=== PATIENT | male | born 1945 | race Caucasian/White ===

== ENCOUNTER → 2016-12-15 | Outpatient (CLI) | payer OTHER, BC ==
[~2016-12-15] MED LIST: ACET1TAB84 PO; ALLO300T80 PO; AMLO-110 PO; ASPI81TA28 PO; CLB200 PO; CPR500 PO; CRD4 PO; FINA5TAB PO; FLUT0.15 NAE; FRRS300 PO; FURO-85 PO; GLUCTAB7 PO; METO50TA7 PO; OMEG10007 PO; OXYSR10 PO; PRAV40TA PO; PRLSR20 PO; RXC5 PO; VNTHFA/IN INH
--- NOTE | 2016-12-15 09:24 | DIAGNOSTIC IMAGING REPORT ---
CT OF THE LEFT SHOULDER CT DOSE: 1327.00 mGy.cm HISTORY: Pain arthritis TECHNIQUE: Multiaxial CT images of the left shoulder were performed and reformatted in the sagittal and coronal plane without the use of contrast. COMPARISON: None. FINDINGS: Findings of considerable degenerative change of the glenohumeral joint. There is complete loss of joint space. There is sclerosis and peripheral reactive osteophytic change of the glenoid. Similar findings are seen involving the humeral head. Small degenerative subchondral cysts are present. There is moderate degenerative change acromioclavicular joint. There are no abnormal soft tissue or tendinous calcifications. There is no evidence for fracture. IMPRESSION: Severe degenerative change left glenohumeral joint. Electronically signed by: Kennedy Mccoy M.D. 12/15/2016 9:22 AM Dictated Date/Time: 12/15/2016 9:16 AM
== END | disposition home or self-care (01) ==
LOC: C.CTS 08:51
PROVIDERS: ATTEND Orthopaedic Surgery
DX: M25.512 Pain in left shoulder (principal)

== ENCOUNTER 2017-01-26 08:56 | Inpatient (IN) | payer OTHER, BC ==
--- NOTE | 2017-01-08 12:31 | HISTORY & PHYSICAL EXAMINATION ---
DATE OF ADMISSION: 01/26/2017 PREOPERATIVE HISTORY AND PHYSICAL EXAMINATION SUBJECTIVE CHIEF COMPLAINT: Left shoulder pain. HISTORY OF PRESENT ILLNESS: The patient is a 71-year-old male who complains of right and left shoulder pain. He states that the pain is worse on the left hand side. His symptoms have been chronic and nontraumatic. He describes the pain as being aching, sharp and throbbing. He has had previous cortisone injections and physical therapy, nonsteroidal anti-inflammatories with no relief. He would like to proceed with the surgical procedure. PAST MEDICAL HISTORY: Significant for hypertension, aFib, BPH. PAST SURGICAL HISTORY: Ablation for aFib, spinal fusion at L3-L4, left knee arthroscopy and appendectomy. SOCIAL HISTORY: He denies alcohol use, denies smoking or tobacco use. He denies IV drug use. Lives in a [address] house. He is currently retired. FAMILY HISTORY: Father has a history of heart disease. ALLERGIES: No known drug allergies. MEDICATIONS: Amlodipine 5 mg, pravastatin 40 mg, finasteride 5 mg, metoprolol 100 mg, doxazosin 8 mg, furosemide 20 mg, allopurinol 300 mg, aspirin 81 mg, glucosamine chondroitin. REVIEW OF SYSTEMS: He denies headache, fevers, chills, double vision, blurry vision, sore throat, cough, chest pain, nausea, vomiting, diarrhea, chest pain, numbness, tingling, tired, urinary problems, thoughts of harming himself or harm others and depression. He is positive for joint pain and joint stiffness of the left shoulder. OBJECTIVE: GENERAL APPEARANCE: The patient is a 71-year-old male who is sitting in no acute distress. He is well dressed, well nourished. He is awake, alert and oriented x3. VITAL SIGNS: He is 5 feet 5-1/2 inches tall, 233 pounds, blood pressure is 126/76. HEENT: Normocephalic, atraumatic. Extraocular movements are intact. PERRLA. Mucosa was moist. No septal deviation. NECK: Supple with no lymphadenopathy, no JVD, no thyromegaly. HEART: Regular rate and rhythm. No murmurs or gallops. LUNGS: Clear to auscultation. No wheezing or rhonchi. ABDOMEN: Soft, nontender, nondistended. Normal bowel sounds, no hepatosplenomegaly. EXTREMITIES: Paying particular attention to his left shoulder, he is able to actively flex to 90 degrees, extend to degrees, externally rotate to 45 degrees. He has diffuse tenderness over the left shoulder joint. He has a positive Yip-Willard, positive Neer impingement sign, positive cross body test. NEUROLOGIC: Cranial nerves II-XII are intact. Pulses were compared bilaterally and were equal. IMAGING: X-rays of the left shoulder demonstrate bone on bone with significant osteophyte formation of the inferior humeral head with cystic change within the glenoid and eccentric posterior wear. IMPRESSION: Severe end-stage left shoulder osteoarthritis. PLAN: The patient is scheduled for a left total shoulder arthroplasty versus reverse total shoulder arthroplasty. Given the patient's physical exam findings, there is concern for chronic tear of the rotator cuff. Depending on surgical findings, I will determine whether the patient receive a left total shoulder arthroplasty versus reverse total shoulder arthroplasty. Risks and benefits were discussed for surgery that included but not limited to infection, DVT, pain, stiffness, need for revision surgery, damage to blood vessels, damage to nerves, PE, and anesthesia risks were all discussed and he wishes to proceed. All questions were answered to his satisfaction. He would like to go home with home health. Postop surgical visit will be on 02/05/2017. HAI
[2017-01-08 13:48] VITALS: BMI 38.0
--- NOTE | 2017-01-08 14:34 | PAT Medication Instructions ---
Service Date January 08, 2017. Current Home Medication List Acetaminophen (Tylenol Arthritis Ext Rel), 1,300 MG PO PRN Allopurinol (Zyloprim), 300 MG PO QPM Amlodipine (Norvasc), 5 MG PO QAM Aspirin (Aspirin Ec), 81 MG PO QAM Doxazosin Mesylate (Cardura *), 8 MG PO QPM Finasteride (Proscar), 5 MG PO QAM Fish Oil ([place]-3), 1 CAP PO QPM Fluticasone Propionate (Nasal) (Flonase Allergy Relief), 2 SPRAYS BRIGITTE BID Furosemide (Lasix), 20 MG PO QAM Bnxgazdfqlz-Wgexksuyabs-Wam C- (Glucosamine Chondroitin), 1 TAB PO QAM Metoprolol Succ (Toprol Xl) (Toprol-Xl), 50 MG PO QAM Pravastatin Sodium (Pravachol), 40 MG PO HS Medication Instructions For Your Scheduled Surgery - Hold the following medications 10 days prior to surgery: Wfugdrvfywj-Gpepozoubjd-Gly C- (Glucosamine Chondroitin), 1 TAB PO QAM Fish Oil ([place]-3), 1 CAP PO QPM - Hold the following medications the morning of surgery: Furosemide (Lasix), 20 MG PO QAM - Take the following medications the morning of surgery with a sip of water: Metoprolol Succ (Toprol Xl) (Toprol-Xl), 50 MG PO QAM Fluticasone Propionate (Nasal) (Flonase Allergy Relief), 2 SPRAYS BRIGITTE BID Finasteride (Proscar), 5 MG PO QAM Amlodipine (Norvasc), 5 MG PO QAM Aspirin (Aspirin Ec), 81 MG PO QAM Acetaminophen (Tylenol Arthritis Ext Rel), 1,300 MG PO PRN (if needed) - Take the following medications as scheduled the night before surgery: Pravastatin Sodium (Pravachol), 40 MG PO HS Fluticasone Propionate (Nasal) (Flonase Allergy Relief), 2 SPRAYS BRIGITTE BID Doxazosin Mesylate (Cardura *), 8 MG PO QPM Allopurinol (Zyloprim), 300 MG PO QPM Acetaminophen (Tylenol Arthritis Ext Rel), 1,300 MG PO PRN If you have any questions please call us at [phone] or [phone] ( [place]) or [phone]
[2017-01-08 15:14] LABS: BASO % 0.3 %; BASO ABS # 0.02 K/uL (0-0.2); COMPLETE YES; EOS % 3.1 %; HEMATOCRIT 47.1 % (42-52); IG% 0.3 %; LYMPH % 19.4 %; LYMPH ABS # 1.48 K/uL (1.2-3.4); MEAN CELL VOLUME 93.1 fL (80-100); MEAN CORPUSCULAR HGB CONC 34.4 g/dl (32-36); MEAN PLATELET VOLUME 10.3 fL (7.4-10.4); MONO % 9.2 %; NEUT % 67.7 %; PLATELET COUNT 203 K/uL (130-400); RED BLOOD COUNT 5.06 M/uL (4.7-6.1); WHITE BLOOD COUNT 7.62 K/uL (4.8-10.8)
[2017-01-08 15:23] LABS: URINE APPEARANCE CLEAR (CLEAR); URINE BILIRUBIN NEG (NEG); URINE COLOR YELLOW; URINE NITRITE NEG (NEG); URINE PH 7.5 (4.5-7.5); URINE SPECIFIC GRAVITY 1.024 (1.000-1.030); UROBILINOGEN NEG (NEG)
[2017-01-08 15:24] LABS: INR 1.1 (0.9-1.1); PARTIAL THROMBOPLASTIN RATIO 1.2; PROTHROMBIN TIME (PATIENT) 11.6 SECONDS (9.0-12.0)
[2017-01-08 15:29] LABS: BUN/CREATININE RATIO 20.1 (10-20); CALCIUM 9.1 mg/dl (8.5-10.1); CREATININE 1.4 mg/dl (0.60-1.40); POTASSIUM 4.7 mmol/L (3.5-5.1)
[2017-01-08 15:31] LABS: MANUAL MICROSCOPIC REQUIRED? NO; REVIEW REQ? NO
[2017-01-08 16:37] LABS: ESTIMATED AVERAGE GLUCOSE 111 mg/dl; HA1C FLAG Normal (Normal)
[2017-01-26] VITALS (7 sets, daily range): BP systolic 104–144; BP diastolic 65–91; PULSE 68–87; TEMP 36.1–36.7; O2SAT 90–97; Ht 167.6 cm; Wt 106.5 kg
[~2017-01-26] VITALS: Ht 167.6 cm; Wt 106.5 kg
[~2017-01-26 08:56] MED LIST changes: +ACETAMINOPHEN 500 MG TAB PO SCH; +BUPIVACAINE 0.5 % 5 MG/1 ML PF 10ML VIAL ONE; +CEFAZOLIN 2000 MG/60 ML D5W 60 ML IV SCH; -CLB200 PO; +CLONIDINE HCL 100 MCG/ML SYRINGE ONE; -CPR500 PO; +CeleBREX 200 MG CAP PO SCH; +DEXAMETHASONE 4 MG TAB PO SCH; +FAMOTIDINE 20 MG TAB PO SCH; -FRRS300 PO; +GABAPENTIN 300 MG CAP PO SCH; +MEPIVACAINE HCL 1.5% 30 ML VIAL ONE; +METOCLOPRAMIDE HCL 10 MG TAB PO SCH; -OXYSR10 PO; -PRLSR20 PO; +ROPIVACAINE 5MG/ML 30 ML 150 MG, BUPIVACAINE/EPINEPHR 0.5% MPF 30 ML, KETOROLAC TROMETH... INFIL SCH; -RXC5 PO; -VNTHFA/IN INH
--- NOTE | 2017-01-26 09:26 | History & Physical Bridge Note ---
H&P Re-Evaluation Bridge Note: I have examined the patient, reviewed the History & Physical and in the interval since the performance of the History & Physical I have noted the following changes of clinical significance: No changes noted
[2017-01-26] MEDS ORDERED: PROPOFOL IV EMULSION 10 MG/ML 20 ML VIAL IV ONE (11:48)
[2017-01-26] MEDS ORDERED: ROCURONIUM BROMIDE 10 MG/ML 5 ML VIAL ONE (11:48)
[2017-01-26] MEDS ORDERED: LIDOCAINE HCL 2% 2 ML VIAL (20MG/ML) ONE ×2 (11:48→12:02)
[2017-01-26] MEDS ORDERED: FENTANYL CITRATE INJ 50 MCG/1 ML 2 ML VIAL ONE (11:49)
[2017-01-26] MEDS ORDERED: MIDAZOLAM HCL 1 MG/ML 2ML VIAL ONE (12:02)
[2017-01-26] MEDS: TRANEXAMIC ACID INJ 1,000 MG in SODIUM CHLORIDE 0.9% 100ML 100 ML IV SCH ×2 (12:14→17:57)
[2017-01-26] MEDS ORDERED: POVIDONE-IODINE OP SOLN 30 ML BTL ONE (12:42)
[2017-01-26] MEDS ORDERED: BACITRACIN 50000 UNIT VIAL ONE (12:42)
[2017-01-26] MEDS ORDERED: ORTHO JOINT ANESTHETIC ONE (12:42)
[2017-01-26] MEDS ORDERED: EpHEDrine SULFATE INJ 50 MG/ML AMP IV PRN (13:15)
[2017-01-26] MEDS ORDERED: ATROPINE SULFATE 0.1 MG/ML 5ML SYR IV PRN (13:15)
[2017-01-26] MEDS ORDERED: ONDANSETRON INJ 2 MG/ML 2 ML VIAL IV PRN ×2 (13:15→15:15)
[2017-01-26] MEDS ORDERED: LABETALOL HCL IV 5 MG/ML 20ML IV PRN (13:15)
[2017-01-26] MEDS ORDERED: MEPERIDINE HCL 25 MG/ML CARP IV PRN (13:15)
[2017-01-26] MEDS ORDERED: FENTANYL CITRATE INJ 50 MCG/1 ML 2 ML VIAL IV PRN (13:15)
[2017-01-26] MEDS ORDERED: HYDROmorphone INJ 1 MG/ML SYR IV PRN (13:15)
[2017-01-26] MEDS ORDERED: DEXAMETHASONE SOD INJ 4 MG/ML VIAL ONE (13:34)
[2017-01-26] MEDS ORDERED: PHENYLEPHRINE HCL INJ 10 MG/ML VIAL ONE (13:34)
[2017-01-26] MEDS ORDERED: EpHEDrine SULFATE INJ 50 MG/ML AMP ONE (13:34)
[2017-01-26] MEDS ORDERED: ONDANSETRON INJ 2 MG/ML 2 ML VIAL ONE (13:34)
[2017-01-26] MEDS ORDERED: EpHEDrine SULFATE 50MG/5ML SYR ONE (14:38)
[2017-01-26] MEDS ORDERED: NEOSTIGMINE METHYLSULFATE 5 MG/5 ML SYR ONE (14:45)
[2017-01-26] MEDS ORDERED: GLYCOPYRROLATE INJ 0.2 MG/ML VIAL ONE (14:45)
--- NOTE | 2017-01-26 15:08 | [facility] Post Operative Brief Note ---
Immediate Operative Summary Operative Date January 26, 2017. Pre-Operative Diagnosis Left shoulder degenerative joint disease Post-Operative Diagnosis same plus RCT, biceps tendon tear Procedure(s) Performed Left Reverse Total Shoulder Arthroplasty; Uncemented, biceps tenodesis Surgeon Dr. Porter Milling Planer Operator Surgeon(s) Dillon Hubbard PA-C Estimated Blood Loss 50 ml Findings above Specimens a. Left humeral head Drains 1 hemovac Anesthesia geta, interscalene Complication(s) None Disposition Recovery Room / PACU
[2017-01-26] MEDS ORDERED: OXYCODONE HCL IR 5 MG TAB (IMMEDIATE RELEASE) PO PRN (15:15)
[2017-01-26] MEDS ORDERED: ALUMINUM/MAGNESIUM SUSP 30 ML UDC PO PRN (15:15)
[2017-01-26] MEDS ORDERED: ZOLPIDEM TARTRATE 5 MG TAB PO PRN (15:15)
[2017-01-26] MEDS ORDERED: MoRPHine SULFATE 2 MG/ML CARP IV PRN (15:15)
[2017-01-26] MEDS ORDERED: MAGNESIUM HYDROXIDE SUSP 30 ML UDC PO PRN (15:15)
[2017-01-26] MEDS ORDERED: METOCLOPRAMIDE HCL INJ 5 MG/ML 2 ML VIAL IV PRN (15:15)
--- NOTE | 2017-01-26 16:20 | DIAGNOSTIC IMAGING REPORT ---
LEFT SHOULDER MIN 2 VIEWS ROUTINE CLINICAL HISTORY: Post shoulder surgery COMPARISON STUDY: None. FINDINGS: Patient is status post a reverse left total shoulder arthroplasty. The hardware is intact. No fracture or dislocation. Skin edvin and surgical drain is in place. IMPRESSION: Left total shoulder arthroplasty. No evidence for hardware complication. Electronically signed by: Noman Moise M.D. 01/26/2017 4:19 PM Dictated Date/Time: 01/26/2017 4:18 PM
--- NOTE | 2017-01-26 16:34 | Anesthesiology Progress Note ---
Anesthesia Post Op Note Date & Time January 26, 2017 at 16:33 Vital Signs Pain Intensity: 0 Vital Signs Past 12 Hours Date Time Temp Pulse Resp B/P Pulse Ox O2 Delivery O2 Flow Rate FiO2 01/26/17 16:16 148/85 01/26/17 16:13 68 14 01/26/17 16:13 72 14 94 01/26/17 16:12 36.5 67 16 148/85 93 Nasal Cannula 3 01/26/17 16:11 142/94 01/26/17 16:10 146/81 01/26/17 16:09 159/118 01/26/17 16:08 73 21 01/26/17 16:08 76 21 93 01/26/17 16:07 149/104 01/26/17 16:03 67 16 92 01/26/17 16:03 67 16 01/26/17 16:02 149/78 01/26/17 15:58 75 21 96 01/26/17 15:58 76 21 01/26/17 15:57 165/85 01/26/17 15:53 71 12 96 01/26/17 15:53 72 12 01/26/17 15:52 159/83 01/26/17 15:52 159/83 01/26/17 15:51 74 17 95 01/26/17 15:51 75 17 01/26/17 15:51 74 17 95 01/26/17 15:51 75 17 01/26/17 15:46 73 17 161/94 96 01/26/17 15:46 73 17 161/94 96 01/26/17 15:46 75 17 01/26/17 15:46 75 17 01/26/17 15:42 164/96 01/26/17 15:42 164/96 01/26/17 15:41 61 18 96 01/26/17 15:41 76 18 01/26/17 15:41 61 18 96 01/26/17 15:41 76 18 01/26/17 15:36 75 22 172/89 98 01/26/17 15:36 75 22 172/89 98 01/26/17 15:36 75 22 01/26/17 15:36 75 22 01/26/17 15:33 178/96 01/26/17 15:33 178/96 01/26/17 15:31 36.0 75 18 172/89 95 Mask 10 01/26/17 09:30 36.4 01/26/17 09:30 36.4 78 20 144/86 97 Nasal Cannula Notes Mental Status: alert / awake / arousable, participated in evaluation Pt Amnestic to Procedure: Yes Nausea / Vomiting: adequately controlled Pain: adequately controlled Airway Patency, RR, SpO2: stable & adequate BP & HR: stable & adequate Hydration State: stable & adequate Anesthetic Complications: no major complications apparent
[2017-01-26] MEDS: D5W AND 1/2NSS + 20MEQ KCL 1,000 ML IV SCH (18:47)
[2017-01-26] MEDS ORDERED: VNTHFA/IN INH (19:19)
[2017-01-26] MEDS ORDERED: METO50TA7 PO (19:19)
[2017-01-26] MEDS ORDERED: PRLSR20 PO (19:19)
[2017-01-26] MEDS ORDERED: ALBUTEROL HFA 8 GM INHALER INH PRN (19:30)
[2017-01-26] MEDS: FERROUS GLUCONATE 324 MG TAB PO SCH (19:57)
[2017-01-26] MEDS: KETOROLAC TROMETHAMINE 15 MG/ML VIAL IV. SCH (19:59)
[2017-01-26] MEDS ORDERED: DOXAZosin MESYLATE TAB 4 MG TAB PO SCH (21:00)
[2017-01-26] MEDS ORDERED: PRAVASTATIN SOD 40 MG TAB PO SCH (21:00)
[2017-01-26] MEDS ORDERED: ALLOPURINOL 300 MG TAB PO SCH (21:00)
[2017-01-26] MEDS: PREGABALIN 75 MG CAP PO SCH (21:20)
[2017-01-26] MEDS: OXYCODONE HCL 10 MG TABCR (OXYCONTIN) PO SCH (21:20)
[2017-01-26] MEDS: FLUTICASONE PROPIONATE NA SPR 16 GM BTL NAE SCH (21:21)
[2017-01-26] MEDS: ACETAMINOPHEN 500 MG TAB PO SCH (21:22)
[2017-01-26] MEDS: CEFAZOLIN IV 2,000 MG in DEXTROSE 5% 50ML 50 ML IV SCH (21:27)
--- NOTE | 2017-01-27 00:31 | INTERNAL MEDICINE CONSULTATION ---
DATE OF CONSULTATION: 01/26/2017 CHIEF COMPLAINT: Status post right shoulder surgery. HISTORY OF PRESENT ILLNESS: This is a 71-year-old male with past medical history significant for obesity, hypertension, chronic atrial fibrillation status post ablation, BPH, gout, status post left shoulder surgery and tolerated the procedure okay. Pain is under control. Denies any chest pain, no shortness of breath, no headaches, no blurred vision. He has some cough. No nausea, no vomiting, no abdominal pain, resting comfortably. Denies any complaints and feeling good. ALLERGIES: No known drug allergies. PAST MEDICAL HISTORY: As mentioned above. PAST SURGICAL HISTORY: Abdominal surgery, temporary insertion of indwelling bladder catheter, cystoscopy, hemorrhoidectomy, left knee arthroscopy, prostate needle punch biopsy, laser enucleation of the prostrate with reduction of the bowel intussusception, appendectomy, transurethral prostate resection, removal of a simple small bladder stone. MEDICATIONS: The patient is on pravastatin 40 mg p.o. at bedtime, omeprazole 20 mg p.o. b.i.d., albuterol 2 puffs every 6 hours p.r.n., Proscar 5 mg p.o. daily, Flonase 2 sprays each nostril daily, Toprol-XL 100 mg p.o. daily, doxazosin 8 mg p.o. at bedtime, aspirin enteric coated 81 mg p.o. daily, Lasix 20 mg p.o. daily, allopurinol 300 mg p.o. daily, amlodipine 5 mg p.o. daily, Tylenol 650 mg p.o. q. 4 hours p.r.n., glucosamine chondroitin 2-3 tablets daily. FAMILY HISTORY: Significant for father had diabetes and heart disorder and hypertension. SOCIAL HISTORY: No smoking history. No alcohol, no drug abuse. . REVIEW OF SYMPTOMS: As per HPI. Rest of review of symptoms negative. PHYSICAL EXAMINATION: GENERAL: The patient is obese, not in distress. VITAL SIGNS: Temperature 36.5, pulse 68, respiratory rate 16, blood pressure 127/83, oxygen 97% on 2 liters. HEENT: No pallor, no icterus pupils. NECK: No JVD, no neck masses. CARDIOVASCULAR: S1, S2 heard, regular rate and rhythm, no murmur, no gallop. RESPIRATORY SYSTEM: Clear to auscultation bilaterally. No wheezing, no crackles. ABDOMEN: Soft, bowel sounds present. Nontender. No distention. CENTRAL NERVOUS SYSTEM: Nonfocal. EXTREMITIES: Status post right shoulder arthroplasty, dressing intact right upper extremity status post left shoulder arthroplasty, dressing intact and left shoulder in a sling. LABORATORY DATA: Unavailable. ASSESSMENT AND PLAN: This is a 71-year-old male status post left shoulder arthroplasty. 1. Left shoulder arthroplasty. Pain is under control. Management as per orthopedics. 2. Hypertension. Continue his home medication of amlodipine, Toprol-XL, Cardura, and Lasix. We will follow his blood pressure while in the hospital. 3. History of atrial fibrillation, status post ablation, no longer on Coumadin. Continue his Toprol-XL. 4. History of benign prostatic hypertrophy status post transurethral resection of prostate. Continue doxazosin and Proscar. 5. History of gout, continue allopurinol. 6. History of hyperlipidemia. Continue statin. 7. History of gastroesophageal reflux disease. Continue proton pump inhibitor. 8. Deep vein thrombosis prophylaxis and disposition, as per orthopedics. MTDD
[2017-01-27] MEDS: KETOROLAC TROMETHAMINE 15 MG/ML VIAL IV. SCH ×2 (02:21→07:55)
--- NOTE | 2017-01-27 02:44 | OPERATIVE REPORT ---
DATE OF OPERATION: 01/26/2017 PREOPERATIVE DIAGNOSIS: Left shoulder degenerative joint disease. POSTOPERATIVE DIAGNOSIS: Same plus rotator cuff tear and tear of long head of the biceps tendon. PROCEDURE: Left reverse total shoulder arthroplasty and biceps tenodesis. SURGEON: Marcelino Porter MD GUN CLUB MANAGER: Dillon Hubbard PA-C who was necessary for assistance of procedure with positioning, prepping, draping, retraction and closure. ANESTHESIA: General endotracheal anesthesia with interscalene block. SPECIMEN: Bone and tissue. ESTIMATED BLOOD LOSS: 50 mL. DRAINS: One medium Hemovac. COMPLICATIONS: None. IMPLANTS: Exactech Equinox 15 mm stem, +0 humeral tray, +2 mm humeral liner, 38 mm glenosphere and standard glenoid plate. INDICATIONS: The patient is a 71-year-old male, with long-standing pain in left shoulder. He has failed conservative measures including injection, anti-inflammatories and physical therapy. He has had a history of previous rotator cuff repair in the past. He has bone on bone in the glenohumeral joint with some humeral head elevation and osteophyte formation of the greater tuberosity. Given his history and x-ray findings, I was concerned he may have a tear of his rotator cuff. We planned for anatomic versus reverse total shoulder arthroplasty. Risks, benefits and alternatives of surgery including but not limited to infection, DVT, pain, stiffness, need for urgent surgery, failure to relieve all symptoms, damage to blood vessels, damage to nerves and risks of anesthesia were discussed with the patient and he wished to proceed. DESCRIPTION OF PROCEDURE: The patient was identified, laterality was confirmed and marked. He received a preoperative antibiotic as well as interscalene block. He was transferred to the operating room, placed in a supine position and then placed in a beach chair position. All pressure points were well-padded. Limb was prepped and draped in usual sterile manner with ChloraPrep. The arm was secured in a spider. I made a longitudinal incision just lateral to coracoid, sharply incised through the skin utilizing Bovie electrocautery to achieve hemostasis. I identified the cephalic vein and mobilized this laterally with the deltoid. I developed the deltopectoral interval, released a small portion of the upper insertion of pec tendon for visualization purposes and then dissected down to the long head of biceps tendon. He had fairly significant long head biceps tendinosis tearing. I performed in situ biceps tenodesis to the pec tendon with interrupted #2 FiberWire suture and then excised the remaining torn tendon portion proximally. He had fairly significant tendinosis and tearing of the supraspinatus. He had significant tendinosis of the infraspinatus as well and had a tear of the upper half of the subscapularis. Given the poor quality of the rotator cuff tissue, his previous repair and tearing of the supraspinatus and subscapularis, I elected to proceed with a reverse total shoulder. I finished release the subscapularis and then dislocated the shoulder. I pinned into place the humeral version cutting guide made my humeral head resection. He had fairly significant inferior osteophyte off the humerus that was removed. I then sequentially reamed and then sequentially broached up to a size 15. I placed a size 13 trial humerus in that position and then exposed the glenoid. I released the inferior capsule, performed a circumferential release of the capsule around the glenoid, excised the glenoid labrum and the residual biceps tendon stump. The glenoid was debrided. He had a fairly significant osteophyte anterior superiorly that was removed. Then, I drilled for the central post for the glenoid plate, bone grafted the central post of the glenoid plate and then impacted this into position. I then placed 4 compression screws into the plate and they were then secured with locking caps. I then placed a 38 mm glenosphere into position and secured it with the set screw. I then turned my attention back to the humerus; I trialled first with a +0 liner and then with a +2.5 mm liner; we had good soft tissue balancing and good tension with the +2.5. All the trial components were removed. The deep tissues were anesthetized with an Orthomix solution and the wound was thoroughly irrigated. The definitive stem which is a 50 mm Exactech Equinoxe stem was press fit into position. The humeral tray was then put into position and secured with a torque-limiting screw and then the +2.5 mm humeral liner was impacted into place. The shoulder was then reduced. We had good range of motion and good soft tissue balancing. The wound was thoroughly irrigated. A deep drain was placed. The deltopectoral interval was closed with interrupted #1 Ethibond sutures, subcutaneous tissue with interrupted 2-0 Vicryl suture and the skin with edvin. Sterile dressing was applied and sling was placed. All needle and sponge counts were correct at the end of the procedure. The patient was transferred to the PACU in stable condition without apparent complications. I attest to the content of the Intraoperative Record and any orders documented therein. Any exceptions are noted below. KAMILAD
[2017-01-27 03:31] VITALS: BP 108/67; PULSE 82; TEMP 36.3; O2SAT 92
[2017-01-27] MEDS: D5W AND 1/2NSS + 20MEQ KCL 1,000 ML IV SCH (05:02)
[2017-01-27] MEDS: ACETAMINOPHEN 500 MG TAB PO SCH (06:02)
[2017-01-27] MEDS: CEFAZOLIN IV 2,000 MG in DEXTROSE 5% 50ML 50 ML IV SCH (06:02)
[2017-01-27 06:30] LABS: HEMATOCRIT 43.2 % (42-52); MEAN CELL VOLUME 92.1 fL (80-100); MEAN CORPUSCULAR HEMOGLOBIN 31.6 pg (25-34); MEAN CORPUSCULAR HGB CONC 34.3 g/dl (32-36); MEAN PLATELET VOLUME 10.2 fL (7.4-10.4); PLATELET COUNT 190 K/uL (130-400); RED BLOOD COUNT 4.69 M/uL (4.7-6.1); WHITE BLOOD COUNT 20.08 K/uL (4.8-10.8)
[2017-01-27 06:38] VITALS: O2SAT 92
[2017-01-27 07:07] LABS: BUN/CREATININE RATIO 14.8 (10-20); CALCIUM 8.7 mg/dl (8.5-10.1); CREATININE 1.2 mg/dl (0.60-1.40); POTASSIUM 4.2 mmol/L (3.5-5.1)
[2017-01-27 07:15] VITALS: BP 109/63; PULSE 83; TEMP 36.2; O2SAT 92
--- NOTE | 2017-01-27 08:33 | Orthopedic Progress Note ---
Orthopedic Progress Note Date of Service January 27, 2017. Subjective Post OP Day: 1 Reports: feeling well, pain controlled w PO medications (Still having some numbness at the shoulder.), Denies: SOB, chest pain, complaints, nausea / vomiting Objective N/V intact, capillary refill less than 2 sec., dressing C/D/I, A&O x3 Left hand: fingers are mobile. Sensation to light touch intact. Date Time Temp Pulse Resp B/P Pulse Ox O2 Delivery O2 Flow Rate FiO2 01/27/17 07:15 36.2 83 20 109/63 92 Room Air 01/27/17 06:38 92 Room Air 01/27/17 03:31 36.3 82 15 108/67 92 Nasal Cannula 2.0 01/26/17 23:48 Nasal Cannula 2.0 01/26/17 23:12 36.4 87 16 104/65 91 Nasal Cannula 2.0 01/26/17 20:05 36.1 81 18 123/79 93 Nasal Cannula 2.0 01/26/17 19:05 36.7 77 16 114/75 92 Nasal Cannula 2.0 01/26/17 18:05 36.6 73 16 134/91 91 Nasal Cannula 2.0 01/26/17 17:35 36.5 68 16 127/83 91 Nasal Cannula 2.0 01/26/17 17:05 36.3 75 17 124/81 90 Nasal Cannula 2.0 01/26/17 17:05 90 Nasal Cannula 2.0 01/26/17 17:05 90 Nasal Cannula 3.0 01/26/17 16:47 69 12 01/26/17 16:47 69 12 93 01/26/17 16:46 136/90 01/26/17 16:42 68 13 01/26/17 16:42 68 13 93 01/26/17 16:41 149/88 01/26/17 16:37 73 16 01/26/17 16:37 74 16 92 01/26/17 16:36 143/85 01/26/17 16:32 71 14 01/26/17 16:32 71 14 92 01/26/17 16:31 151/90 01/26/17 16:27 71 16 01/26/17 16:27 71 16 93 01/26/17 16:26 147/90 01/26/17 16:22 72 17 01/26/17 16:22 72 17 93 01/26/17 16:21 144/89 01/26/17 16:17 69 15 93 01/26/17 16:17 69 15 01/26/17 16:16 148/85 01/26/17 16:13 68 14 01/26/17 16:13 72 14 94 01/26/17 16:12 36.5 67 16 148/85 93 Nasal Cannula 3 01/26/17 16:11 142/94 01/26/17 16:10 146/81 01/26/17 16:09 159/118 01/26/17 16:08 73 21 01/26/17 16:08 76 21 93 01/26/17 16:07 149/104 01/26/17 16:03 67 16 92 01/26/17 16:03 67 16 01/26/17 16:02 149/78 01/26/17 15:58 75 21 96 01/26/17 15:58 76 21 01/26/17 15:57 165/85 01/26/17 15:53 71 12 96 01/26/17 15:53 72 12 01/26/17 15:52 159/83 01/26/17 15:52 159/83 01/26/17 15:51 74 17 95 01/26/17 15:51 75 17 01/26/17 15:51 74 17 95 01/26/17 15:51 75 17 01/26/17 15:46 73 17 161/94 96 01/26/17 15:46 73 17 161/94 96 01/26/17 15:46 75 17 01/26/17 15:46 75 17 01/26/17 15:42 164/96 01/26/17 15:42 164/96 01/26/17 15:41 61 18 96 01/26/17 15:41 76 18 01/26/17 15:41 61 18 96 01/26/17 15:41 76 18 01/26/17 15:36 75 22 172/89 98 01/26/17 15:36 75 22 172/89 98 01/26/17 15:36 75 22 01/26/17 15:36 75 22 01/26/17 15:33 178/96 01/26/17 15:33 178/96 01/26/17 15:31 36.0 75 18 172/89 95 Mask 10 01/26/17 09:30 36.4 01/26/17 09:30 36.4 78 20 144/86 97 Nasal Cannula Laboratory Results 24 Hours: Test 01/27/17 05:58 Hematocrit 43.2 % Hemoglobin 14.8 g/dL Assessment & Plan Assessment: POD #1 s/p Left reverse total shoulder arthroplasty and biceps tenodesis Plan: Silverlon dressing in place for 7 days. PT today to show exercises at home. Inhouse Planning Pain Management: Celebrex, Toradol, Oxycontin, Morphine, Oxy IR Discharge Planning Discharge Planning: home Pain Management: Celebrex, Oxycontin, Oxy IR
[2017-01-27] MEDS ORDERED: RXC5 PO (08:35)
[2017-01-27] MEDS ORDERED: OXYSR10 PO (08:35)
[2017-01-27] MEDS ORDERED: CLB200 PO (08:35)
--- NOTE | 2017-01-27 08:37 | Discharge Instructions ---
Discharge Instructions Date of Service January 27, 2017. Admission Reason for Admission: Left Shoulder Degenerative Joint Disease Discharge Discharge Diagnosis / Problem: left shoulder degenerative joint disease Discharge Goals Goal(s): Decrease discomfort, Improve function Activity Recommendations Activity Limitations: per Instructions/Follow-up section . Instructions / Follow-Up Instructions / Follow-Up ACTIVITY RECOMMENDATIONS: SELF CARE INSTRUCTIONS AFTER TOTAL SHOULDER ARTHROPLASTY REVERSE A. You may do daily exercises as taught in physical therapy while in hospital. No lifting with the operative arm. B. You are to wear your sling/immobilizer at all times EXCEPT when performing your daily exercises and for hygiene purposes. C. You may perform dry, daily dressing changes. Please keep your incision covered. You may shower 48 hours after surgery. Do not apply soap or any ointment/ lotions directly over incision. Do not soak incision in bath tub/swimming pool. D. You may use ice as needed to operative shoulder. SPECIAL CARE INSTRUCTIONS: VERY IMPORTANT TO READ AND REVIEW A. There are a few signs you need to watch for after you are home. Call [facility] at [phone] if you experience any of the followin. Increased severe shoulder pain. Some pain is expected especially when you exercise. 2. Increased swelling in you shoulder or arm; pain or swelling in either upper extremity. 3. Any fluid drainage from the incision. 4. Shortness of breath or chest pain. B. Please call [facility] at [phone] if you have any questions or concerns about your operation or recovery. C. Call your physician if: 1. Temperature is greater than 101 degrees (F). 2. Pain is not relieved by prescribed pain medications. 3. Increase drainage or redness from incision. 4. Unanswered questions or concerns. D. Silverlon- This is a large adhesive bandage that contains silver ions. This helps your incision heal by fighting off bacteria and protecting it from the outside environment. You are permitted to shower with this dressing. This will remain on your incision for 7 days and then should be removed. Some visible blood or drainage through the dressing window is normal. If there is significant drainage or leaking noted before the 7 days notify your doctor's office immediately. Once removed, keep incision clean and dry. If there is any drainage or redness noted, please call your surgeon. FOLLOW UP VISIT: Please call [facility] at [phone] to schedule a follow up appointment with Dr. Porter or his PA in 12-14 days from your surgery date. Current Hospital Diet Patient's current hospital diet: Regular Diet Discharge Diet Recommended Diet: Regular Diet Procedures Procedures Performed: Left Reverse Total Shoulder Arthroplasty; Uncemented, biceps tenodesis Pending Studies Studies pending at discharge: no Laboratory Results Hemoglobin A1c Test 01/08/17 14:36 Range/Units Estimated Average Glucose 111 mg/dl Hemoglobin A1c 5.5 4.5-5.6 % Medical Emergencies . Who to Call and When: Medical Emergencies: If at any time you feel your situation is an emergency, please call 911 immediately. . Non-Emergent Contact Non-Emergency issues call your: Surgeon Call Non-Emergent contact if: temperature is above 101, your pain is not controlled, your pain is worsening, wound has increased drainage, wound has increased redness . "Provider Documentation" section prepared by Phil Acosta. . VTE Core Measure Inpt VTE Proph given/why not?: Other Anticoagulation
[2017-01-27] MEDS: OXYCODONE HCL 10 MG TABCR (OXYCONTIN) PO SCH (08:53)
[2017-01-27] MEDS: PREGABALIN 75 MG CAP PO SCH (08:53)
[2017-01-27] MEDS: FLUTICASONE PROPIONATE NA SPR 16 GM BTL NAE SCH (08:57)
[2017-01-27] MEDS: FERROUS GLUCONATE 324 MG TAB PO SCH (08:57)
[2017-01-27] MEDS ORDERED: PANTOprazole SOD 40 MG TAB PO SCH (09:00)
[2017-01-27] MEDS ORDERED: NON-FORMULARY MEDICATION (Omeprazole (Prilosec) 20 MG) PO SCH (09:00)
[2017-01-27] MEDS ORDERED: FINASTERIDE 5 MG TAB PO SCH (09:00)
[2017-01-27] MEDS ORDERED: METOPROLOL SUCC 50MG EXT REL TAB PO SCH ×2 (09:00)
[2017-01-27] MEDS ORDERED: AMLODIPINE BESYLATE 5 MG TAB PO SCH (09:00)
[2017-01-27] MEDS ORDERED: MULTIVITAMIN TAB PO SCH (09:00)
[2017-01-27] MEDS ORDERED: ASPIRIN 81 MG ECTAB PO SCH (09:00)
[2017-01-27] MEDS ORDERED: FUROSEMIDE 20 MG TAB PO SCH (09:00)
[2017-01-27 09:48] VITALS: BP 109/63; PULSE 83; TEMP 36.2; O2SAT 92
[2017-01-27] MEDS ORDERED: CeleBREX 200 MG CAP PO SCH (21:00)
--- NOTE | 2017-02-01 16:16 | DISCHARGE SUMMARY ---
ADMISSION DIAGNOSIS: Left shoulder degenerative joint disease. DISCHARGE DIAGNOSIS: Status post left reverse total shoulder arthroplasty. CONSULTS: Internal medicine consult with Dr. Varghese. PROCEDURES: On 01/26/2017, the patient underwent a left reverse total shoulder arthroplasty. HISTORY OF PRESENT ILLNESS: The patient is a 71-year-old male who complains of left shoulder pain. He states that the pain has been chronic and nontraumatic, it is described as aching, sharp and throbbing. He has had a previous cortisone injections, physical therapy, and nonsteroidal anti-inflammatories with no relief. He would like to proceed with a left shoulder arthroplasty. HOSPITAL COURSE: Postop day #1, the patient was feeling well. Pain was controlled with p.o. medications. He is having some numbness into the left shoulder. He denied chest pain, shortness of breath, nausea, vomiting, or lightheadedness. Incision was clean, dry and intact. Fingers were mobile. Sensation was normal. The patient is going to do physical therapy in the morning and then discharged with home self-care. DISCHARGE CONDITION: Stable. DISPOSITION: Home with self-care. MEDICATIONS: Celebrex 200 mg by mouth twice daily for 30 days, OxyContin 10 mg by mouth every 12 hours, oxycodone 5-10 mg by mouth every 4 hours as needed for pain, Tylenol 650 mg by mouth as needed for pain, albuterol 2 puffs by inhalation every 6 hours as needed for shortness of breath or wheezing, Norvasc 5 mg by mouth daily in the morning, 81 mg aspirin by mouth daily in the morning, Cardura 8 mg by mouth daily in the evening1, finasteride 5 mg by mouth daily in the morning, fish oil 1 capsule by mouth daily in the evening, fluticasone 2 sprays each nostril twice daily, Lasix 20 mg by mouth daily in the morning, glucosamine chondroitin 1 tablet by mouth daily in the morning, Toprol-XL 100 mg by mouth daily in the morning, Prilosec 20 mg by mouth daily, Pravachol 40 mg by mouth at bedtime. INSTRUCTIONS: The patient is on a regular diet. He is allowed to weightbear as tolerated with his left upper extremity. He may do his daily exercises as taught in physical therapy in the hospital. He is to wear the sling or immobilizer at all times except when performing daily exercises and hygiene purposes. He is not to soak in any bathtubs or swimming pools. He is to keep the Silverlon dressing intact for 7 days. He is to call [facility] if he notices an increase in shoulder pain, swelling, redness or incision drainage or experiencing a fever greater than 101 degrees Fahrenheit. He will follow up in 12-[address] Porter or his PA. HAI
--- NOTE | 2017-02-02 12:55 | EDITING REQUIRED CODING QUERY ---
CQSUPPORTING DIAGNOSIS NEEDED A supporting diagnosis is required for the test/procedure performed on this patient in order for us to be reimbursed by the patient's insurance. Please provide a supporting diagnosis for the following test/procedure listed below next to the test name along with your signature. *If there is no additional diagnosis for this patient that would support the following test/procedure please document that below next to the test/procedure. Test(s)/Procedure(s) that require a supporting diagnosis: This was not done during the patient's admission. It was pre-op screening for clearance and risk assessment. DOS GLYCATED HEMOGLOBIN Provider Signature: Date: Thank you Meg Hernández Health Information Management Once completed, please kindly fax back to [phone] For questions please call [phone]
== END 2017-01-27 12:02 | disposition home or self-care (01) | DRG 483 ==
LOC: ENRESERVDT → ENRESERVTM → C.ACU 08:56 → C.3E 09:20
PROVIDERS: ADMIT Orthopaedic Surgery; ATTEND Orthopaedic Surgery
PROC: 0RRK00Z Replacement of Left Shoulder Joint with Reverse Ball and Socket Synthetic Substitute, Open Approach (ICD-10-PCS; principal; 2017-01-26 11:50)
DX: M19.012 Primary osteoarthritis, left shoulder (principal); M75.102 Unspecified rotator cuff tear or rupture of left shoulder, not specified as traumatic; M75.22 Bicipital tendinitis, left shoulder; I10 Essential (primary) hypertension; I48.91 Unspecified atrial fibrillation; N40.0 Benign prostatic hyperplasia without lower urinary tract symptoms; Z98.1 Arthrodesis status; M1A.9XX0 Chronic gout, unspecified, without tophus (tophi); K21.9 Gastro-esophageal reflux disease without esophagitis; E78.5 Hyperlipidemia, unspecified

== ENCOUNTER → 2017-09-10 | Outpatient (CLI) | payer OTHER, BC ==
[~2017-09-10] MED LIST changes: -ACETAMINOPHEN 500 MG TAB PO SCH; -BUPIVACAINE 0.5 % 5 MG/1 ML PF 10ML VIAL ONE; -CEFAZOLIN 2000 MG/60 ML D5W 60 ML IV SCH; +CLB200 PO; -CLONIDINE HCL 100 MCG/ML SYRINGE ONE; -CeleBREX 200 MG CAP PO SCH; -DEXAMETHASONE 4 MG TAB PO SCH; -FAMOTIDINE 20 MG TAB PO SCH; -GABAPENTIN 300 MG CAP PO SCH; -MEPIVACAINE HCL 1.5% 30 ML VIAL ONE; -METOCLOPRAMIDE HCL 10 MG TAB PO SCH; +OXYSR10 PO; -ROPIVACAINE 5MG/ML 30 ML 150 MG, BUPIVACAINE/EPINEPHR 0.5% MPF 30 ML, KETOROLAC TROMETH... INFIL SCH; +RXC5 PO
== END | disposition home or self-care (01) ==
LOC: C.PATHSPEC 13:03
PROVIDERS: ATTEND Dentist General Practice
DX: D10.30 Benign neoplasm of unspecified part of mouth (principal)

== ENCOUNTER 2017-12-14 07:48 | Inpatient (IN) | payer OTHER, BC ==
[2017-10-25 16:19] VITALS: BMI 39.0
[2017-11-22 12:35] LABS: BASO % 0.3 %; BASO ABS # 0.02 K/uL (0-0.2); EOS % 2.6 %; EOS ABS # 0.18 K/uL (0-0.5); HEMOGLOBIN 16.8 g/dL (14.0-18.0); IG# 0.02 K/uL (0.00-0.02); LYMPH % 19.6 %; LYMPH ABS # 1.37 K/uL (1.2-3.4); MEAN CELL VOLUME 92.6 fL (80-100); MEAN CORPUSCULAR HEMOGLOBIN 31.8 pg (25-34); MEAN CORPUSCULAR HGB CONC 34.3 g/dl (32-36); MEAN PLATELET VOLUME 10.4 fL (7.4-10.4); MONO % 9.9 %; MONO ABS # 0.69 K/uL (0.11-0.59); NEUT % 67.3 %; NEUT ABS # 4.71 K/uL (1.4-6.5); PLATELET COUNT 193 K/uL (130-400); RED CELL DISTRIBUTION WIDTH CV 12.4 % (11.5-14.5); RED CELL DISTRIBUTION WIDTH SD 42.1 fL (36.4-46.3); WHITE BLOOD COUNT 6.99 K/uL (4.8-10.8)
[2017-11-22 12:37] LABS: PTT PATIENT 30.9 SECONDS (21.0-31.0)
[2017-11-22 13:21] LABS: ALBUMIN 3.6 gm/dl (3.4-5.0); CREATININE 1.11 mg/dl (0.60-1.40); HEMOGLOBIN A1C 5.5 % (4.5-5.6); POTASSIUM 4.1 mmol/L (3.5-5.1)
--- NOTE | 2017-12-05 08:08 | History and Physical ---
History & Physical Date Dec 05, 2017. Chief Complaint left knee pain History of Present Illness The patient is a 72 year old male with complaints of left knee pain for several years. He has tried conservative therapy with minimal relief. He would like to proceed with scheduled surgery. Past Medical/Surgical History Medical Problems: (1) Atrial fibrillation (2) DJD of shoulder (3) Gross hematuria (4) HTN (hypertension) (5) Laceration of right index finger with foreign body without damage to nail (6) Orchitis of right testicle Additional History Hepatic Disease: No Endocrine Disorder: No Kidney Disease: No Hypertension: Yes Heart Disease: No Bleeding Tendencies: No Infectious Diseases: No Allergies Coded Allergies: NO KNOWN DRUG ALLERGIES (Unverified Allergy, Unknown, NONE, 10/25/17) POLLEN (Unverified Allergy, Unknown, NASAL CONGESTION, INCREASED PHLEGM, ) Home Medications Scheduled Acetaminophen (Tylenol Arthritis Ext Rel), 1,300 MG PO PRN Allopurinol (Zyloprim), 300 MG PO QPM Amlodipine (Norvasc), 5 MG PO QAM Aspirin (Aspirin Ec), 81 MG PO QPM Doxazosin Mesylate (Cardura), 1 TAB PO QPM Finasteride (Proscar), 5 MG PO QAM Fish Oil ([place]-3), 1 CAP PO QPM Fluticasone Propionate (Nasal) (Flonase Allergy Relief), 2 SPRAYS BRIGITTE BID Furosemide (Lasix), 20 MG PO QAM Cqcktcwmkjw-Likphuxndsb-Qkr C- (Glucosamine Chondroitin), 1 TAB PO QAM Metoprolol Succ (Toprol Xl) (Toprol-Xl), 100 MG PO QAM Pravastatin Sodium (Pravachol), 40 MG PO HS Prednisone Tab (Prednisone), 10 MG PO UD [Sulfamethoxazole], 1 TAB PO BID Scheduled PRN Oxycodone HCl (Oxycodone HCl), 5-10 MG PO Q4H PRN for Pain Physical Examination Skin: warm/dry, no rash Eyes: normal inspection, EOMI ENT: normal ENT inspection Head: normocephalic, atraumatic Neck: supple, no adenopathy Respiratory/Chest: lungs clear, normal breath sounds Cardiovascular: no murmur, + irregularly irregular Abdomen / GI: normal bowel sounds, non tender Extremities: normal inspection, + pertinent finding (ROM 0-90. ligaments are intact. medial joint space narrowing. ) Neurologic/Psych: no motor/sensory deficits, alert, oriented x 3 Diagnosis Primary osteoarthritis of the left knee Plan of Treatment Patient is scheduled for a left total knee arthroplasty. He has failed conservative measures and would like to proceed with scheduled surgery. Risks and benefits to surgery were discussed with the patient. He understands these risks and wishes to proceed. All questions were answered to his satisfaction. He will be placed on ASA 81mg BID for DVT prophylaxis. He would like to go home with OPPT.
[~2017-12-14] VITALS: Ht 167.6 cm; Wt 109.1 kg
[2017-12-14] VITALS (9 sets, daily range): BP systolic 119–144; BP diastolic 52–81; PULSE 61–78; TEMP 36.4–36.9; O2SAT 91–96; Ht 167.6 cm; Wt 109.1 kg
[~2017-12-14 07:48] MED LIST changes: +ACETAMINOPHEN 500 MG TAB PO SCH; +BUPIVACAINE 0.25% 30 ML VIAL ONE; +BUPIVACAINE 0.5 % 5 MG/1 ML PF 10ML VIAL ONE; +CEFAZOLIN 2000MG IV PUSH 15 ML IV SCH; -CLB200 PO; -CRD4 PO; +CeleBREX 200 MG CAP PO SCH; +DEXAMETHASONE 4 MG TAB PO SCH; +DOXA8TAB2 PO; +FAMOTIDINE 20 MG TAB PO SCH; +GABAPENTIN 300 MG CAP PO SCH; +LACTATED RINGER'S 1000ML 1,000 ML IV SCH; -METO50TA7 PO; +METO50TA8 PO; +METOCLOPRAMIDE HCL 10 MG TAB PO SCH; -OXYSR10 PO; +PRED10TA PO; +ROPIVACAINE 5MG/ML 30 ML 150 MG, BUPIVACAINE 0.5% MPF INJ 30 ML, EpINEphrine HCL INJ 0.... INFIL SCH; +SULFPOW92 PO
[2017-12-14] MEDS ORDERED: FENTANYL CITRATE INJ 50 MCG/1 ML 2 ML VIAL ONE (08:58)
[2017-12-14] MEDS ORDERED: MIDAZOLAM HCL 1 MG/ML 2ML VIAL ONE (09:01)
[2017-12-14] MEDS: TRANEXAMIC ACID INJ 1,000 MG x 2 Bags IV SCH ×4 (10:04→14:51)
[2017-12-14] MEDS ORDERED: ORTHO JOINT ANESTHETIC ONE (10:07)
[2017-12-14] MEDS ORDERED: POVIDONE-IODINE OP SOLN 30 ML BTL ONE (10:07)
[2017-12-14] MEDS ORDERED: BACITRACIN 50000 UNIT VIAL ONE (10:08)
[2017-12-14] MEDS ORDERED: PHENYLEPHRINE 100MCG/ML 5ML SYR IV PRN (10:15)
[2017-12-14] MEDS ORDERED: ONDANSETRON INJ 2 MG/ML 2 ML VIAL IV PRN ×2 (10:15→12:30)
[2017-12-14] MEDS ORDERED: ATROPINE SULFATE 0.1 MG/ML 5ML SYR IV PRN (10:15)
[2017-12-14] MEDS ORDERED: EpHEDrine SULFATE INJ 50 MG/ML AMP IV PRN (10:15)
[2017-12-14] MEDS ORDERED: KETOROLAC TROMETHAMINE 30 MG/ML VIAL IV. PRN (10:15)
[2017-12-14] MEDS ORDERED: HYDROmorphone INJ 2 MG/ML SYR/VIAL IV PRN (10:15)
[2017-12-14] MEDS ORDERED: PROPOFOL IV EMULSION 10 MG/ML 20 ML VIAL IV ONE (10:59)
--- NOTE | 2017-12-14 11:39 | [facility] Operative Report ---
Operative Report Operative Date Dec 14, 2017. Pre-Operative Diagnosis Primary osteoarthritis of left knee Post-Operative Diagnosis Same Procedure(s) Performed Left Total Knee Arthroplasty Surgeon Dr Porter [employer] Appraiser Surgeon(s) Dillon Hubbard PA-C Estimated Blood Loss 20ml Findings As above Specimens a. left knee- bone and tissue Drains 2 Hemovac Anesthesia Type MAC Spinal Regional Complication(s) none Disposition Recovery Room / PACU Indications The patient is a 72-year-old male long-standing arthritis left knee. He is bone -on-bone medial compartment. He is failed conservative measures including injections and anti-inflammatories and rehab. He wishes to proceed with left total knee arthroplasty. Description of Procedure Risks benefits and alternatives of surgery including but not limited to infection, DVT, pain, stiffness, need for surgery, damage to blood vessels, damage to nerves or risks of anesthesia were discussed with the patient and they wished to proceed. The patient was identified and the laterality was confirmed and marked. They received a preoperative antibiotic as well as a spinal anesthetic and an abductor canal block. A well-padded tourniquet was applied and then the limb was prepped and draped in standard manner with ChloraPrep. The limb was exsanguinated and the tourniquet was inflated. I made a standard anterior incision. I sharply incised the skin then utilized Bovie electrocautery as well as the aqua mantis to achieve hemostasis. I made a medial parapatellar arthrotomy and mobilized the patella laterally. I then excised the anterior horns of the medial and lateral meniscus as well as the infrapatellar fat pad. I elevated a portion of the MCL off of the tibia. I then pinned into place a patient-matched distal femoral cutting guide and made my distal femoral resection. I then pinned into place the 5 in 1 femoral cutting guide. I made my anterior, posterior and chamfer cuts. I then excised the cruciates and the remaining portions of the menisci. I then pinned into place a patient- matched tibial cutting guide and made my tibial resection. I then pinned into place the tibial plate a utilizing alignment evelia to confirm rotation. I then cut for the post. Utilizing a lamina statistical machine servicer and I then removed posterior osteophytes off the femur. I then placed a trial femur into position and cut for the trochlear component. I then sequentially trialed to size the polyethylene until there was good soft tissue balancing and range of motion. I then prepared the patella with a freehand cut utilizing sagittal saw. I sized and drilled for the patella. There was good tracking to the patella no lateral release was needed. All the trial components were removed. The deep tissues were anesthetized with an ortho mix solution. Then with Simplex HV with gentamicin cement, I cemented my definitive components. Definitive components, [employer] Journey 2: Femur 7 Tibia 6 Poly 9 Patella 35 oval A betadine soak was performed. A deep drain was placed. The arthrotomy was closed with interrupted #1 Vicryl suture subcutaneous tissue was closed with interrupted 2-0 Vicryl suture. The skin was closed with with edvin. A Silverlon was placed. Sterile dressings were applied. All needle and sponge counts were correct at the end of the procedure patient was transferred to the PACU in stable condition without apparent complication. The PA-C was necessary for assistance with procedure for assistance in positioning, prepping, draping, retraction and closure. I attest to the content of the Intraoperative Record and any orders documented therein. Any exceptions are noted below.
[2017-12-14] MEDS ORDERED: ALUMINUM/MAGNESIUM/SIMETH (MAALOX MAX) 30 ML UDC PO PRN (12:30)
[2017-12-14] MEDS ORDERED: MoRPHine SULFATE 2 MG/ML CARP IV PRN (12:30)
[2017-12-14] MEDS ORDERED: BISACODYL 10 MG SUPP PR PRN (12:30)
[2017-12-14] MEDS ORDERED: MAGNESIUM HYDROXIDE SUSP 30 ML UDC PO PRN (12:30)
[2017-12-14] MEDS ORDERED: OXYCODONE HCL IR 5 MG TAB (IMMEDIATE RELEASE) PO PRN (12:30)
[2017-12-14] MEDS ORDERED: CEFAZOLIN IV 2,000 MG in DEXTROSE 5% 50ML 50 ML IV SCH (12:30)
[2017-12-14] MEDS ORDERED: ZOLPIDEM TARTRATE 5 MG TAB PO PRN (12:30)
[2017-12-14] MEDS ORDERED: SOD PHOSPHATE/SOD BIPHOSPHATE ENEMA 132 ML BTL PR PRN (12:30)
--- NOTE | 2017-12-14 12:45 | Anesthesiology Progress Note ---
Anesthesia Post Op Note Date & Time Dec 14, 2017 at 12:45 Vital Signs Pain Intensity: 0 Vital Signs Past 12 Hours Date Time Temp Pulse Resp B/P (MAP) Pulse Ox O2 Delivery O2 Flow Rate FiO2 12/14/17 12:30 65 14 112/68 94 Nasal Cannula 2 12/14/17 12:21 36.0 73 16 115/64 96 Nasal Cannula 2 12/14/17 08:18 36.9 75 18 144/81 93 Room Air Notes Mental Status: alert / awake / arousable, participated in evaluation Pt Amnestic to Procedure: Yes Nausea / Vomiting: adequately controlled Pain: adequately controlled Airway Patency, RR, SpO2: stable & adequate BP & HR: stable & adequate Hydration State: stable & adequate Anesthetic Complications: no major complications apparent
--- NOTE | 2017-12-14 13:07 | DIAGNOSTIC IMAGING REPORT ---
TWO VIEWS LEFT KNEE CLINICAL HISTORY: Postoperative examination. FINDINGS: AP and crosstable lateral portable views of the left knee are obtained. A left knee arthroplasty is in near anatomic alignment. There has been undersurface remodeling of the patella. No acute fracture is seen. There are expected postoperative changes around the knee including skin clips, a surgical drain, soft tissue edema, and subcutaneous gas. IMPRESSION: Expected postoperative changes status post left knee arthroplasty. No acute fracture is seen. Electronically signed by: Maninder Villatoro M.D. 12/14/2017 1:05 PM Dictated Date/Time: 12/14/2017 1:05 PM
[2017-12-14] MEDS ORDERED: SODIUM CHLORIDE 0.9% 1000ML 1,000 ML IV SCH (14:00)
--- NOTE | 2017-12-14 15:24 | DIAGNOSTIC IMAGING REPORT ---
CHEST ONE VIEW PORTABLE HISTORY: wheezing, crackles COMPARISON: None. FINDINGS: No pneumothorax. The heart is top normal in size. Mild diffuse interstitial thickening. A few linear densities at the left lung base. Suspect a trace left pleural effusion. There is a left shoulder prosthesis. There are low lung volumes. Severe degenerative changes within the right shoulder. IMPRESSION: 1. Mild diffuse interstitial thickening. This may be chronic or due to mild congestive change. 2. Possible trace left pleural effusion. 3. A few linear densities at the left lung base. This favors subsegmental atelectasis. Electronically signed by: Noman Moise M.D. 12/14/2017 3:23 PM Dictated Date/Time: 12/14/2017 3:22 PM
[2017-12-14 15:32] LABS: HEP C IGG 13 YRS+OLDER_RFLX NEG (NEG)
[2017-12-14] MEDS: ACETAMINOPHEN 500 MG TAB PO SCH (16:12)
--- NOTE | 2017-12-14 16:16 | Medical Consult ---
Consultation Date of Consultation: Dec 14, 2017. Attending Physician: Marcelino Porter M.D. Reason for Consultation: Postop medical management History of Present Illness 72-year-old man for elective total knee arthropathy on the left for severe osteoarthritis. He is doing well postoperatively. He denies any nausea, chest pain, shortness of breath. He is wearing 2 L oxygen and reports that he because of some sinus issues. He denies any orthopnea and reports that he sleeps on his side typically without issue. He denies any recent swelling or weight gain and there is no history of heart failure in this individual. He was preoperatively cleared by cardiology prior to the surgery for history of atrial fibrillation status post pulmonary vein isolation. He is not on anticoagulation at this time and remains in sinus rhythm. Postoperatively he is oxygenating 95% on 2 L nasal cannula. Nurse was asked to remove oxygen for a trial of weaning. Of note he states that in the past, people have had difficulties with oxygen saturations from his fingers but the reading typically low. Review of systems also reveals limited sensation in lower extremities that he says is "coming back". Past Medical/Surgical History Medical Problems: (1) Atrial fibrillation Status: Resolved (2) DJD of shoulder Status: Chronic (3) Dyslipidemia Status: Chronic (4) Enlarged prostate with lower urinary tract symptoms (LUTS) Status: Chronic (5) HTN (hypertension) Status: Chronic (6) Intussusception Status: Chronic (7) Laceration of right index finger with foreign body without damage to nail Status: Resolved Surgical Problems: (1) H/O hemorrhoidectomy Status: Chronic (2) H/O left knee surgery Status: Chronic (3) S/P appy Status: Chronic (4) S/P shoulder joint replacement Status: Chronic (5) S/P TURP Status: Chronic Family History Diabetes mellitus FATHER FH: heart disease FATHER UNCLE ([place] at 60 yo) Hypertension FATHER Social History Smoking Status: Never Smoker Smokeless Tobacco Use: No Alcohol Use: socially Drug Use: none Marital Status: , Housing Status: lives with significant other Occupation Status: retired Allergies Coded Allergies: NO KNOWN DRUG ALLERGIES (Unverified Allergy, Unknown, NONE, 12/14/17) POLLEN (Unverified Allergy, Unknown, NASAL CONGESTION, INCREASED PHLEGM, ) Home Medications Active Oxycodone HCl 5 Mg Tab 5-10 Mg PO Q4H PRN Toprol-Xl (Metoprolol Succinate) 50 Mg Tabcr 100 Mg PO QAM Reported Cardura (Doxazosin Mesylate) 8 Mg Tab 1 Tab PO QPM 90 Days [place]-3 (Fish Oil) 1 Ea Cap 1 Cap PO QPM Tylenol Arthritis Ext Rel (Acetaminophen) 650 Mg Cplt 1,300 Mg PO PRN Aspirin Ec (Aspirin) 81 Mg Tab 81 Mg PO QPM Flonase Allergy Relief (Fluticasone Propionate (Nasal)) 50 Mcg/Act Spr 2 Sprays BRIGITTE BID Glucosamine Chondroitin (Rdhitbcuhpy-Apkpyagkihj-Csd C-) 1 Tab Tab 1 Tab PO QAM Pravachol (Pravastatin Sodium) 40 Mg Tab 40 Mg PO HS Zyloprim (Allopurinol) 300 Mg Tab 300 Mg PO QPM Lasix (Furosemide) 20 Mg Tab 20 Mg PO QAM Proscar (Finasteride) 5 Mg Tab 5 Mg PO QAM Norvasc (Amlodipine Besylate) 5 Mg Tab 5 Mg PO QAM Current Inpatient Medications Current Inpatient Medications Medications (Trade) Dose Ordered Sig/Jack Route Start Time Stop Time Status Last Admin Dose Admin Cefazolin Sodium 15 ml @ 3.75 mls/ min PREOP IV 12/14/17 06:00 12/14/17 18:00 12/14/17 10:29 3.75 MLS/MIN Acetaminophen (Tylenol Tab) 1,000 mg PREOP PO 12/14/17 06:00 12/14/17 18:00 12/14/17 08:47 1,000 MG Celecoxib (CeleBREX CAP) 200 mg PREOP PO 12/14/17 06:00 12/14/17 18:00 12/14/17 08:45 200 MG Dexamethasone (Decadron Tab) 8 mg PREOP PO 12/14/17 06:00 12/14/17 18:00 12/14/17 08:46 8 MG Famotidine (Pepcid Tab) 20 mg PREOP PO 12/14/17 06:00 12/14/17 18:00 12/14/17 08:46 20 MG Gabapentin (Neurontin Cap) 300 mg PREOP PO 12/14/17 06:00 12/14/17 18:00 12/14/17 08:46 300 MG Metoclopramide HCl (Reglan Tab) 10 mg PREOP PO 12/14/17 06:00 12/14/17 18:00 12/14/17 08:45 10 MG Ondansetron HCl (Zofran Inj) 4 mg ONE PRN IV 12/14/17 10:15 12/14/17 16:00 Atropine Sulfate (Atropine Sulfate 0.1mg/ml Inj) 0.5 mg Q1M PRN IV 12/14/17 10:15 12/14/17 16:00 Ephedrine Sulfate (EpHEDrine SULFATE INJ) 5 mg Q5M PRN IV 12/14/17 10:15 12/14/17 16:00 Ketorolac Tromethamine (Toradol Inj) 30 mg ONE PRN IV. 12/14/17 10:15 12/14/17 16:00 Hydromorphone HCl (Dilaudid Inj) 0.25 mg Q5M PRN IV 12/14/17 10:15 12/14/17 16:00 Phenylephrine HCl (Ollie-Synephrine 500MCG/5ML Syr) 100 mcg Q5M PRN IV 12/14/17 10:15 12/14/17 16:00 Sodium Chloride 1,000 ml @ 50 mls/hr Q20H IV 12/14/17 14:00 12/15/17 13:59 Celecoxib (CeleBREX CAP) 200 mg BID PO 12/14/17 21:00 01/13/18 20:59 Oxycodone HCl (Roxicodone Immediate Rel Tab) 1 TABLET FOR PAIN RATING... Q4H PRN PO 12/14/17 12:30 12/28/17 12:29 Morphine Sulfate (MoRPHine SULFATE INJ) 2 mg Q4H PRN IV 12/14/17 12:30 12/28/17 12:29 Acetaminophen (Tylenol Tab) 1,000 mg Q8H PO 12/14/17 16:00 01/13/18 15:59 Magnesium Hydroxide (Milk Of Magnesia Susp) 30 ml Q6H PRN PO 12/14/17 12:30 01/13/18 12:29 Bisacodyl (Dulcolax Supp) 10 mg DAILY PRN WI 12/14/17 12:30 01/13/18 12:29 Sodium Biphosphate/ Sodium Phosphate (Fleet Enema) 132 ml DAILY PRN [place] 4/13/18 12:30 01/13/18 12:29 Senna (Senokot Tab) 17.2 mg HS PO 12/14/17 21:00 01/13/18 20:59 Docusate Sodium (coLACE CAP) 100 mg BID PO 12/14/17 21:00 01/13/18 20:59 Diphenhydramine HCl (Benadryl Cap) 25 mg Q8H PRN PO 12/14/17 12:30 01/13/18 12:29 Al Hydrox/Mg Hydrox/Simethicone (Maalox Max Susp) 15 ml Q4H PRN PO 12/14/17 12:30 01/13/18 12:29 Zolpidem Tartrate (Ambien Tab) 5 mg HSZ PRN PO 12/14/17 12:30 01/13/18 12:29 Multivitamins (Multivitamin Tab) 1 tab QAM PO 12/15/17 09:00 01/14/18 08:59 Ondansetron HCl (Zofran Inj) 4 mg Q6H PRN IV 12/14/17 12:30 01/13/18 12:29 Ferrous Gluconate (Ferrous Gluconate Tab) 324 mg TIDM PO 12/14/17 17:45 01/13/18 17:59 Aspirin (Ecotrin Tab) 81 mg BID PO 12/14/17 21:00 01/13/18 20:59 Allopurinol (Zyloprim Tab) 300 mg QPM PO 12/14/17 21:00 01/13/18 20:59 Amlodipine Besylate (Norvasc Tab) 5 mg QAM PO 12/15/17 09:00 01/14/18 08:59 Finasteride (Proscar Tab) 5 mg QAM PO 12/15/17 09:00 01/14/18 08:59 Fluticasone Propionate (Flonase Nasal [place]) 2 sprays BID BRIGITTE 12/14/17 21:00 01/13/18 20:59 Furosemide (Lasix Tab) 20 mg QAM PO 12/15/17 09:00 01/14/18 08:59 Metoprolol Succinate (Toprol Xl Tab) 100 mg QAM PO 12/15/17 09:00 01/14/18 08:59 Pravastatin Sodium (Pravachol Tab) 40 mg HS PO 12/14/17 21:00 01/13/18 20:59 Doxazosin Mesylate (Cardura Tab) 8 mg QPM PO 12/14/17 21:00 01/13/18 20:59 Cefazolin Sodium 2000 mg/Syringe 15 ml @ 3.75 mls/ min Q8H IV 12/14/17 18:00 12/15/17 02:03 Review of Systems At least 10 systems were reviewed and negative except as indicated in HPI. Physical Exam Date Time Temp Pulse Resp B/P (MAP) Pulse Ox O2 Delivery O2 Flow Rate FiO2 12/14/17 15:19 36.4 75 16 126/75 (92) 95 Nasal Cannula 2.0 12/14/17 14:20 36.4 63 19 123/75 (91) 95 Nasal Cannula 2.0 12/14/17 14:00 93 Nasal Cannula 2.0 12/14/17 13:45 36.4 61 16 119/62 (81) 96 Nasal Cannula 2.0 12/14/17 13:15 93 Nasal Cannula 2.0 12/14/17 12:55 64 16 136/72 93 Nasal Cannula 2 12/14/17 12:40 36.4 67 16 117/67 92 Nasal Cannula 2 12/14/17 12:30 65 14 112/68 94 Nasal Cannula 2 12/14/17 12:21 36.0 73 16 115/64 96 Nasal Cannula 2 12/14/17 08:18 36.9 75 18 144/81 93 Room Air General Appearance: WD/WN, no apparent distress Head: normocephalic, atraumatic Eyes: normal inspection, sclerae normal, + pertinent finding (Mucous membranes moist) ENT: hearing grossly normal Neck: no JVD, trachea midline Respiratory/Chest: chest non-tender, lungs clear, normal breath sounds, no respiratory distress, no accessory muscle use Cardiovascular: regular rate, rhythm, no edema, no gallop, no JVD, no murmur, normal peripheral pulses Abdomen/GI: non tender, soft Extremities/Musculoskelatal: no pedal edema, + pertinent finding (Otilio wrap with ice on left leg, no sensation in left foot, patient cannot wiggle toes. 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 tested, no motor/sensory deficits, alert, normal mood/affect, oriented x 3 Skin: normal color, warm/dry, + pertinent finding (Surgical incision is covered with dressing that is clean dry and intact, drains in place ) Laboratory Results 11/22/17 10:02 Red Blood Count 5.29, Mean Corpuscular Volume 92.6, Mean Corpuscular Hemoglobin 31.8, Mean Corpuscular Hemoglobin Concent 34.3, Mean Platelet Volume 10.4, Neutrophils (%) (Auto) 67.3, Lymphocytes (%) (Auto) 19.6, Monocytes (%) (Auto) 9.9, Eosinophils (%) (Auto) 2.6, Basophils (%) (Auto) 0.3, Neutrophils # (Auto) 4.71, Lymphocytes # (Auto) 1.37, Monocytes # (Auto) 0.69, Eosinophils # (Auto) 0.18, Basophils # (Auto) 0.02 11/22/17 10:02 Test 11/22/17 10:02 11/22/17 10:13 12/14/17 13:19 White Blood Count 6.99 K/uL (4.8-10.8) Red Blood Count 5.29 M/uL (4.7-6.1) Hemoglobin 16.8 g/dL (14.0-18.0) Hematocrit 49.0 % (42-52) Mean Corpuscular Volume 92.6 fL (80-100) Mean Corpuscular Hemoglobin 31.8 pg (25-34) Mean Corpuscular Hemoglobin Concent 34.3 g/dl (32-36) Platelet Count 193 K/uL (130-400) Mean Platelet Volume 10.4 fL (7.4-10.4) Neutrophils (%) (Auto) 67.3 % Lymphocytes (%) (Auto) 19.6 % Monocytes (%) (Auto) 9.9 % Eosinophils (%) (Auto) 2.6 % Basophils (%) (Auto) 0.3 % Neutrophils # (Auto) 4.71 K/uL (1.4-6.5) Lymphocytes # (Auto) 1.37 K/uL (1.2-3.4) Monocytes # (Auto) 0.69 K/uL (0.11-0.59) Eosinophils # (Auto) 0.18 K/uL (0-0.5) Basophils # (Auto) 0.02 K/uL (0-0.2) RDW Standard Deviation 42.1 fL (36.4-46.3) RDW Coefficient of Variation 12.4 % (11.5-14.5) Immature Granulocyte % (Auto) 0.3 % Immature Granulocyte # (Auto) 0.02 K/uL (0.00-0.02) Erythrocyte Sedimentation Rate 10 mm/hr (0-14) Prothrombin Time 10.7 SECONDS (9.0-12.0) Prothromb Time International Ratio 1.0 (0.9-1.1) Activated Partial Thromboplast Time 30.9 SECONDS (21.0-31.0) Partial Thromboplastin Ratio 1.2 Anion Gap 9.0 mmol/L (3-11) Est Creatinine Clear Calc Drug Dose 69.7 ml/min Estimated GFR () 76.5 Estimated GFR (Non- 66.0 BUN/Creatinine Ratio 24.2 (10-20) Estimated Average Glucose 111 mg/dl Hemoglobin A1c 5.5 % (4.5-5.6) Calcium Level 9.0 mg/dl (8.5-10.1) Albumin 3.6 gm/dl (3.4-5.0) Urine Color YELLOW Urine Appearance CLEAR (CLEAR) Urine pH 5.0 (4.5-7.5) Urine Specific Kathleen 1.010 (1.000-1.030) Urine Protein NEG (NEG) Urine Glucose (UA) NEG (NEG) Urine Ketones NEG (NEG) Urine Occult Blood NEG (NEG) Urine Nitrite NEG (NEG) Urine Bilirubin NEG (NEG) Urine Urobilinogen NEG (NEG) Urine Leukocyte Esterase NEG (NEG) Hepatitis C Antibody Screen NEG (NEG) Hepatitis C Antibody NEG (NEG) Last 24 Hours Test 12/14/17 13:19 Hepatitis C Antibody Screen NEG Hepatitis C Antibody NEG Assessment & Plan 72-year-old man with OA of the left knee presents for elective total knee arthroplasty. 1. s/p left knee arthroplasty -POD 0; surgery performed by Dr. Porter -post-operative pain well managed -monitor for acute blood loss with daily H&H -pt encouraged to utilize spirometry to prevent post-op infection -PT/OT -activity and wound care orders per ortho protocol -will continue to follow 2. Paroxysmal atrial fibrillation-managed by cardiology as outpatient. Currently rate controlled on Toprol-XL. Not requiring anticoagulation status post pulmonary vein isolation procedure. 3. Hypertension-at goal continue amlodipine postoperatively 4. Chronic allergic rhinitis-postoperatively patient is on oxygen supplementation, however, lungs are clear on exam and the patient has no clinical picture consistent with heart failure. Suspect hypoxia related to nasal stuffiness from chronic sinus issues. Of note patient states that he cannot lay flat without having nasal symptoms. He also mentioned that prior pulse ox readings from his fingers are typically low. He is currently oxygenating 95% on 2 L nasal cannula. Trial of voiding at this time. Chest x- ray findings were reviewed, however, nothing acute appears to be present. We will continue to monitor closely postoperatively for changes. 5. BPH-continue home regimen of doxazosin and finasteride. DVT Prophylaxis-aspirin 81 mg twice daily per orthopedics Full code Disposition per orthopedics Thank you for this consultation. We will follow the patient with you during their hospital stay. You can reach a member of the [facility] Hospitalist Team 26/03 via pager @ . Darlin Loco DO [facility]
[2017-12-14] MEDS: CEFAZOLIN IV 2,000 MG in SYRINGE 0 ML IV SCH (17:44)
[2017-12-14] MEDS: FERROUS GLUCONATE 324 MG TAB PO SCH (17:45)
[2017-12-14] MEDS: FLUTICASONE PROPIONATE NA SPR 16 GM BTL NAE SCH (21:12)
[2017-12-14] MEDS: ASPIRIN 81 MG ECTAB PO SCH (21:14)
[2017-12-14] MEDS: DOXAZosin MESYLATE TAB 4 MG TAB PO SCH (21:14)
[2017-12-14] MEDS: DOCUSATE SODIUM 100 MG CAP PO SCH (21:14)
[2017-12-14] MEDS: SENNA 8.6 MG TAB PO SCH (21:14)
[2017-12-14] MEDS: ALLOPURINOL 300 MG TAB PO SCH (21:15)
[2017-12-14] MEDS: CeleBREX 200 MG CAP PO SCH (21:15)
[2017-12-14] MEDS: PRAVASTATIN SOD 40 MG TAB PO SCH (21:15)
[2017-12-15 00:15] VITALS: O2SAT 93
[2017-12-15] MEDS: ACETAMINOPHEN 500 MG TAB PO SCH ×4 (00:45→23:43)
[2017-12-15] MEDS: CEFAZOLIN IV 2,000 MG in SYRINGE 0 ML IV SCH (02:10)
[2017-12-15 03:30] VITALS: BP_SYST 103; BP_SYST 147; BP_DIAS 59; BP_DIAS 89; PULSE 74; PULSE 87; TEMP 36.5; TEMP 36.6; O2SAT 92; O2SAT 96
[2017-12-15 06:23] LABS: HEMATOCRIT 41.9 % (42-52); HEMOGLOBIN 14.9 g/dL (14.0-18.0); MEAN CELL VOLUME 90.1 fL (80-100); MEAN CORPUSCULAR HGB CONC 35.6 g/dl (32-36); MEAN PLATELET VOLUME 9.9 fL (7.4-10.4); PLATELET COUNT 183 K/uL (130-400); RED CELL DISTRIBUTION WIDTH CV 12.5 % (11.5-14.5); RED CELL DISTRIBUTION WIDTH SD 40.5 fL (36.4-46.3); WHITE BLOOD COUNT 24.99 K/uL (4.8-10.8)
[2017-12-15 06:44] LABS: INR 1.1 (0.9-1.1)
[2017-12-15 06:54] LABS: CALCIUM 8.9 mg/dl (8.5-10.1); CREATININE 1.22 mg/dl (0.60-1.40); POTASSIUM 4.1 mmol/L (3.5-5.1)
--- NOTE | 2017-12-15 07:14 | Orthopedic Progress Note ---
Orthopedic Progress Note Date of Service Dec 15, 2017. Subjective Post OP Day: 1 Reports: feeling well, pain controlled w PO medications, Denies: complaints, chest pain, SOB, nausea / vomiting, light headedness, calf pain Objective calves soft nontender, N/V intact, capillary refill less than 2 sec., dressing C /D/I, A&O x3, toes mobile, hemovac drainage (150cc/8 hours) Date Time Temp Pulse Resp B/P (MAP) Pulse Ox O2 Delivery O2 Flow Rate FiO2 12/15/17 03:30 36.6 74 16 147/89 (108) 92 Room Air 12/15/17 00:15 93 Room Air 2.0 12/14/17 22:58 36.8 76 16 125/52 (76) 91 Room Air 12/14/17 19:57 36.5 78 16 121/70 (87) 91 Room Air 12/14/17 16:43 36.4 70 16 128/76 (93) 92 Room Air 12/14/17 16:05 Room Air Nasal Cannula 12/14/17 15:19 36.4 75 16 126/75 (92) 95 Nasal Cannula 2.0 12/14/17 14:20 36.4 63 19 123/75 (91) 95 Nasal Cannula 2.0 12/14/17 14:00 93 Nasal Cannula 2.0 12/14/17 13:45 36.4 61 16 119/62 (81) 96 Nasal Cannula 2.0 12/14/17 13:15 93 Nasal Cannula 2.0 12/14/17 12:55 64 16 136/72 93 Nasal Cannula 2 12/14/17 12:40 36.4 67 16 117/67 92 Nasal Cannula 2 12/14/17 12:30 65 14 112/68 94 Nasal Cannula 2 12/14/17 12:21 36.0 73 16 115/64 96 Nasal Cannula 2 12/14/17 08:18 36.9 75 18 144/81 93 Room Air Laboratory Results 24 Hours: Test 12/15/17 05:52 Hematocrit 41.9 % Hemoglobin 14.9 g/dL Prothromb Time International Ratio 1.1 Prothrombin Time 11.5 SECONDS Assessment & Plan Assessment: POD #1 s/p left tka pt/ot dvt proph with jonathan/scd/asa plan for dc home with OPPT when stable Discharge Planning Discharge Planning: home with oppt DVT Prophylaxis: TEDs, SCDs, ASA Therapy: Physical Therapy
--- NOTE | 2017-12-15 07:17 | Discharge Instructions ---
Discharge Instructions Date of Service Dec 15, 2017. Admission Reason for Admission: Left Knee Osteoarthritis Discharge Discharge Diagnosis / Problem: left total knee replacement Discharge Goals Goal(s): Decrease discomfort, Improve function, Increase independence Activity Recommendations Activity Limitations: as noted below Weightbearing Status: Left weightbearing (as tolerated) . Instructions / Follow-Up Instructions / Follow-Up ACTIVITY RECOMMENDATIONS: SELF CARE INSTRUCTIONS AFTER TOTAL KNEE REPLACEMENT A. You may need to continue a physical therapy program after discharge from the hospital. There are several options available to you. Your doctor will assist you in selecting the best one for you. 1. An out-patient facility 2 to 3 times a week for therapy or home therapy. 2. Continue working on all exercises taught to you in the hospital. Your goals should be to increase bending of your knee to 90 degrees and beyond and to fully straighten your knee. B. You may progress at your own pace from walking with a walker or crutches to a cane; then to no assistive devices. C. Make walking a part of your daily routine. Be up as much as comfortable with rest periods throughout the day. Rest with leg elevation is very important. Use the ice wrap frequently for the first 3-4 weeks. D. There are no restrictions on activities. You may ride in a car, shop, participate in crossing flagman and all social activities. E. Wear the long elastic stockings (MIRACLE hose) 20 hours a day for 2 weeks after surgery. They can be removed several times a day for laundering and for a bath. F. You may shower, no tub baths until cleared by your doctor. SPECIAL CARE INSTRUCTIONS: VERY IMPORTANT TO READ AND REVIEW A. There are a few signs you need to watch for after you are home. Call [facility] if you notice any of the followin. Increased severe knee pain. Some pain is expected especially when you exercise. 2. Increased swelling in your leg or knee; pain or swelling of the calf muscle in either lower leg. 3. Any fluid drainage from the incision. 4. Shortness of breath or chest pain. B. Please call [facility] at if you have any concerns or questions about your operation or recovery. The doctor or his nurse will return your call promptly. C. You must take antibiotics before dental work, bladder, bowel or other surgery. Your doctor will provide you with a permanent care to carry describing this precaution. IMPORTANT: * REMEMBER TO TAKE ASPIRIN, 81 MG, TWICE DAILY FOR 4 WEEKS UNLESS OTHERWISE DIRECTED. THIS IS YOUR BLOOD THINNER. * HIGH RISK PATIENTS MAY BE PRESCRIBED A STRONGER BLOOD THINNER. THIS WILL BE PROVIDED AT DISCHARGE. * CALL IF INCREASED PAIN, REDNESS, DRAINAGE OR FEVER GREATER THAT 101. * WEAR MIRACLE HOSE 20 HOURS PER DAY FOR 2 WEEKS. * YOU MAY HAVE A LARGE BAND-AID LIKE DRESSING (SILVERON). THIS WILL REMAIN ON YOUR INCISION FOR 7 DAYS, THEN CAN BE REMOVED. IF INCISION IS LEAKING THROUGH DRESSING, CALL THE OFFICE . FOLLOW UP VISIT: If appointment is not already scheduled: Please call [facility] to make a follow-up appointment for 2 weeks after your surgery at . Current Hospital Diet Patient's current hospital diet: Regular Diet Discharge Diet Recommended Diet: Regular Diet Procedures Procedures Performed: Left Total Knee Arthroplasty Pending Studies Studies pending at discharge: no Laboratory Results Hemoglobin A1c Test 11/22/17 10:02 Range/Units Estimated Average Glucose 111 mg/dl Hemoglobin A1c 5.5 4.5-5.6 % Medical Emergencies . Who to Call and When: Medical Emergencies: If at any time you feel your situation is an emergency, please call [phone] immediately. . Non-Emergent Contact Non-Emergency issues call your: Primary Care Provider, Surgeon . "Provider Documentation" section prepared by Kennedy Pyle. . [place] Drug Monitoring Program Search Results: patient reviewed within database, no issues identified
[2017-12-15] MEDS ORDERED: CLC100 PO (07:19)
[2017-12-15] MEDS ORDERED: CLB200 PO (07:19)
[2017-12-15] MEDS ORDERED: ACET-24 PO (07:19)
[2017-12-15] MEDS ORDERED: ASPI-320 PO (07:19)
[2017-12-15] MEDS ORDERED: ONDA-170 PO (07:19)
[2017-12-15] MEDS ORDERED: RXC5 PO (07:19)
[2017-12-15 07:48] VITALS: BP 134/74; PULSE 78; TEMP 36.6; O2SAT 91
[2017-12-15] MEDS ORDERED: NON-FORMULARY MEDICATION (Glucosamine-Chondroitin-Vit C- (Glucosamine Chondroitin) 1 TAB) PO SCH (09:00)
[2017-12-15] MEDS: METOPROLOL SUCC 50MG EXT REL TAB PO SCH (09:04)
[2017-12-15] MEDS: ASPIRIN 81 MG ECTAB PO SCH ×2 (09:04→21:06)
[2017-12-15] MEDS: DOCUSATE SODIUM 100 MG CAP PO SCH ×2 (09:04→21:06)
[2017-12-15] MEDS: FERROUS GLUCONATE 324 MG TAB PO SCH ×3 (09:04→17:18)
[2017-12-15] MEDS: AMLODIPINE BESYLATE 5 MG TAB PO SCH (09:05)
[2017-12-15] MEDS: MULTIVITAMIN TAB PO SCH (09:05)
[2017-12-15] MEDS: FINASTERIDE 5 MG TAB PO SCH (09:05)
[2017-12-15] MEDS: FUROSEMIDE 20 MG TAB PO SCH (09:05)
[2017-12-15] MEDS: CeleBREX 200 MG CAP PO SCH ×2 (09:05→21:06)
[2017-12-15] MEDS: FLUTICASONE PROPIONATE NA SPR 16 GM BTL NAE SCH ×2 (09:06→21:05)
[2017-12-15 11:33] VITALS: BP 152/77; PULSE 73; TEMP 36.5; O2SAT 93
[2017-12-15 15:14] VITALS: BP 125/73; PULSE 70; TEMP 36.5; O2SAT 92
--- NOTE | 2017-12-15 17:47 | Progress Note ---
Internal Med Progress Note Date of Service: Dec 15, 2017. Provider Documentation: SUBJECTIVE: resting comfortably afebrile ambulated ok no chest pain or sob no nausea OBJECTIVE: Vital Signs-as noted below Exam: General-alert and oriented. Not in distress ENT-normal hearing. Neck-No neck masses Lungs-CTA b/l no wheezing or crackles Heart-S1 and S2 heard regular rhythm no murmurs Abdomen-soft Bowels sounds present no distension Extremities-s/p Left TKA Neuro-alert and awake moves extremities Lab data as noted below. ASSESSMENT & PLAN: 72-year-old man with OA of the left knee presents for elective total knee arthroplasty. 1. s/p left knee arthroplasty post op management as per ortho incentive spirometry pt/ot 2. Paroxysmal atrial fibrillation-managed by cardiology as outpatient. Rate controlled on Toprol-XL. Not requiring anticoagulation status post pulmonary vein isolation procedure. 3. Hypertension-On Toprol xl, amlodipine and Lasix. Will monitor. 4. Chronic allergic rhinitis-postoperatively patient is on oxygen supplementation, But currently stable and oxygenating fine. Will closely monitor. 5. BPH-on doxazosin and finasteride.Will monitor DVT Prophylaxis-aspirin 81 mg twice daily per orthopedics Full code Disposition per orthopedics Vital Signs: Date Time Temp Pulse Resp B/P (MAP) Pulse Ox O2 Delivery O2 Flow Rate FiO2 12/15/17 15:14 36.5 70 18 125/73 (90) 92 Room Air 12/15/17 11:33 36.5 73 16 152/77 (102) 93 Room Air 12/15/17 07:48 36.6 78 17 134/74 (94) 91 Room Air 12/15/17 07:35 Room Air 12/15/17 03:30 36.6 74 16 147/89 (108) 92 Room Air 12/15/17 00:15 93 Room Air 2.0 12/14/17 22:58 36.8 76 16 125/52 (76) 91 Room Air 12/14/17 19:57 36.5 78 16 121/70 (87) 91 Room Air Lab Results: Results Past 24 Hours Test 12/15/17 05:52 Range/Units White Blood Count 24.99 4.8-10.8 K/uL Red Blood Count 4.65 4.7-6.1 M/uL Hemoglobin 14.9 14.0-18.0 g/dL Hematocrit 41.9 42-52 % Mean Corpuscular Volume 90.1 80-100 fL Mean Corpuscular Hemoglobin 32.0 25-34 pg Mean Corpuscular Hemoglobin Concent 35.6 32-36 g/dl RDW Standard Deviation 40.5 36.4-46.3 fL RDW Coefficient of Variation 12.5 11.5-14.5 % Platelet Count 183 130-400 K/uL Mean Platelet Volume 9.9 7.4-10.4 fL Prothrombin Time 11.5 9.0-12.0 SECONDS Prothromb Time International Ratio 1.1 0.9-1.1 Sodium Level 139 136-145 mmol/L Potassium Level 4.1 3.5-5.1 mmol/L Chloride Level 108 98-107 mmol/L Carbon Dioxide Level 22 21-32 mmol/L Anion Gap 9.0 3-11 mmol/L Blood Urea Nitrogen 23 7-18 mg/dl Creatinine 1.22 0.60-1.40 mg/dl Est Creatinine Clear Calc Drug Dose 63.4 ml/min Estimated GFR () 68.2 Estimated GFR (Non- 58.9 BUN/Creatinine Ratio 19.2 10-20 Random Glucose 131 70-99 mg/dl Calcium Level 8.9 8.5-10.1 mg/dl
[2017-12-15] MEDS: PRAVASTATIN SOD 40 MG TAB PO SCH (21:00)
[2017-12-15] MEDS: SENNA 8.6 MG TAB PO SCH (22:01)
[2017-12-15] MEDS: DOXAZosin MESYLATE TAB 4 MG TAB PO SCH (22:02)
[2017-12-15] MEDS: ALLOPURINOL 300 MG TAB PO SCH (22:02)
[2017-12-15 23:10] VITALS: BP 132/79; PULSE 73; TEMP 36.6; O2SAT 92
--- NOTE | 2017-12-16 06:44 | Orthopedic Progress Note ---
Orthopedic Progress Note Date of Service Dec 16, 2017. Subjective Post OP Day: 2 Reports: feeling well, pain controlled w PO medications, Denies: complaints, chest pain, SOB, nausea / vomiting, light headedness, calf pain Objective calves soft nontender, N/V intact, capillary refill less than 2 sec., dressing C /D/I (silverlon intact), A&O x3, toes mobile Date Time Temp Pulse Resp B/P (MAP) Pulse Ox O2 Delivery O2 Flow Rate FiO2 12/16/17 00:10 Room Air 12/15/17 23:10 36.6 73 18 132/79 (96) 92 Room Air 12/15/17 15:45 Room Air 12/15/17 15:14 36.5 70 18 125/73 (90) 92 Room Air 12/15/17 11:33 36.5 73 16 152/77 (102) 93 Room Air 12/15/17 07:48 36.6 78 17 134/74 (94) 91 Room Air 12/15/17 07:35 Room Air Assessment & Plan Assessment: POD #2 s/p left tka pt/ot dvt proph with jonathan/scd/asa plan for dc home with OPPT when stable, likely after PT today Discharge Planning Discharge Planning: home with oppt DVT Prophylaxis: TEDs, SCDs, ASA Therapy: Physical Therapy
[2017-12-16 06:56] VITALS: BP 126/76; PULSE 67; TEMP 36.8; O2SAT 93
[2017-12-16] MEDS: METOPROLOL SUCC 50MG EXT REL TAB PO SCH (08:00)
[2017-12-16] MEDS: MULTIVITAMIN TAB PO SCH (08:00)
[2017-12-16] MEDS: FERROUS GLUCONATE 324 MG TAB PO SCH ×2 (08:00→12:24)
[2017-12-16] MEDS: FLUTICASONE PROPIONATE NA SPR 16 GM BTL NAE SCH (08:01)
[2017-12-16] MEDS: ACETAMINOPHEN 500 MG TAB PO SCH (08:01)
[2017-12-16] MEDS: AMLODIPINE BESYLATE 5 MG TAB PO SCH (08:02)
[2017-12-16] MEDS: FINASTERIDE 5 MG TAB PO SCH (08:02)
[2017-12-16] MEDS: DOCUSATE SODIUM 100 MG CAP PO SCH (08:02)
[2017-12-16] MEDS: FUROSEMIDE 20 MG TAB PO SCH (08:02)
[2017-12-16] MEDS: ASPIRIN 81 MG ECTAB PO SCH (08:43)
[2017-12-16] MEDS: CeleBREX 200 MG CAP PO SCH (08:44)
[2017-12-16 12:37] VITALS: BP 126/76; PULSE 67; TEMP 36.8; O2SAT 93
--- NOTE | 2017-12-18 16:30 | Discharge Summary ---
Orthopedic Discharge Summary Admission Date/Reason Dec 14, 2017 at 09:05 Left Knee Osteoarthritis. Discharge Date/Disposition Dec 16, 2017 Home Diagnosis Principal Diagnosis: S/P left total knee arthroplasty Medication Reconciliation as per discharge instructions Admission Physical Exam As per Admitting History & Physical. Hospital Course POD#1 patient was doing well and dressing was Clean, dry and intact. He had some excessive output of his drain and he was held over for observation. POD#2 patient was doing well with no complaints. His pain was controlled with PO medications. Dressing was clean, dry and intact. He was later discharged after morning PT. Discharge Instructions Please refer to the electronic Patient Visit Report (Discharge Instructions) for additional information.
== END 2017-12-16 13:21 | disposition home or self-care (01) | DRG 470 ==
LOC: C.ACU 07:48 → C.3E 09:05 → ENRESERV 12:59
PROVIDERS: ADMIT Orthopaedic Surgery; ATTEND Orthopaedic Surgery
PROC: 0SRD0J9 Replacement of Left Knee Joint with Synthetic Substitute, Cemented, Open Approach (ICD-10-PCS; principal; 2017-12-14 10:00)
DX: M17.12 Unilateral primary osteoarthritis, left knee (principal); I48.0 Paroxysmal atrial fibrillation; I10 Essential (primary) hypertension; N40.1 Benign prostatic hyperplasia with lower urinary tract symptoms; E78.5 Hyperlipidemia, unspecified; J30.9 Allergic rhinitis, unspecified

== ENCOUNTER 2018-10-02 12:37 | Inpatient (IN) ==
[~2018-10-02 12:37] MED LIST changes: -ACET1TAB84 PO; -ACETAMINOPHEN 500 MG TAB PO SCH; -ALLO300T80 PO; -AMLO-110 PO; -ASPI81TA28 PO; -BUPIVACAINE 0.25% 30 ML VIAL ONE; -BUPIVACAINE 0.5 % 5 MG/1 ML PF 10ML VIAL ONE; -CEFAZOLIN 2000MG IV PUSH 15 ML IV SCH; -CeleBREX 200 MG CAP PO SCH; -DEXAMETHASONE 4 MG TAB PO SCH; -DOXA8TAB2 PO; -FAMOTIDINE 20 MG TAB PO SCH; -FINA5TAB PO; -FLUT0.15 NAE; -FURO-85 PO; -GABAPENTIN 300 MG CAP PO SCH; -GLUCTAB7 PO; -LACTATED RINGER'S 1000ML 1,000 ML IV SCH; -METO50TA8 PO; -METOCLOPRAMIDE HCL 10 MG TAB PO SCH; -OMEG10007 PO; -PRAV40TA PO; -PRED10TA PO; +RAPID SEQUENCE INDUCTION BAG ONE; -ROPIVACAINE 5MG/ML 30 ML 150 MG, BUPIVACAINE 0.5% MPF INJ 30 ML, EpINEphrine HCL INJ 0.... INFIL SCH; -RXC5 PO; -SULFPOW92 PO
[2018-10-02] MEDS ORDERED: PANTOprazole 40 MG in SYRINGE 0 ML IV ONE (12:43)
[2018-10-02] MEDS ORDERED: SODIUM CHLORIDE 0.9% 1000ML 1,000 ML IV SCH (12:45)
[2018-10-02] MEDS ORDERED: PANTOprazole 40 MG in DEXTROSE 5% 100 ML IV SCH (12:45)
[2018-10-02 12:59] LABS: Hematocrit (blood only) 36.4 % (42-52); Hemoglobin 11.7 g/dL (14.0-18.0); Mean Corpuscular Hgb Conc 32.1 g/dL (32-36); RDW Coefficient of Variation 15.9 % (11.5-14.5); RDW Standard Deviation 55.6 fL (36.4-46.3); Red Blood Count 3.79 M/uL (4.7-6.1); White Blood Count 7.58 K/uL (4.8-10.8)
[2018-10-02 13:04] LABS: iSTAT Hemoglobin 11.6 g/dl (14.0-18.0); iSTAT Ionized Calcium 1.12 mmol/l (1.12-1.32)
--- NOTE | 2018-10-02 13:07 | XRay Report ---
XR chest 1V portable CLINICAL HISTORY: SOB COMPARISON STUDY: 08/25/2018 FINDINGS: The heart is enlarged. There are left lower lung zone airspace opacities suggestive a pneum onia. Minor right basilar opacities are also evident, atelectasis versus pneumonia. There is a retroc ardiac opacity likely representing a hiatal hernia. There is no failure. There is a left shoulder art hroplasty. Arthritic changes are present within the right shoulder.[ IMPRESSION: 1. Left lower lung zone airspace opacities consistent with pneumonia. Films subsequent to treatment a re recommended in follow-up 2. Minor right basilar opacities, atelectasis versus pneumonia. Electronically signed by: Gildardo Jacobs M.D. 10/02/2018 1:05 PM
[2018-10-02 13:08] LABS: INR 1.1 (0.9-1.1); Partial Thromboplastin Ratio 0.9; Partial Thromboplastin Time 23.4 Seconds (21.0-31.0); Prothrombin Time 11.1 Seconds (9.0-12.0)
[2018-10-02 13:15] LABS: Alanine Aminotransferase 73 U/L (12-78); Albumin Level 2.3 gm/dl (3.4-5.0); Aspartate Aminotransferase 38 U/L (15-37); BUN Creatinine Ratio 40.6 (10-20); Blood Urea Nitrogen 89 mg/dl (7-18); Calcium 8.3 mg/dl (8.5-10.1); Carbon Dioxide 29 mmol/L (21-32); Chloride 101 mmol/L (98-107); Est GFR (African American) 33.2; Est GFR (Non-African American) 28.7; Glucose 145 mg/dl (70-99); Potassium 5.7 mmol/L (3.5-5.1); Sodium 138 mmol/L (136-145)
[2018-10-02 13:19] LABS: Albumin Globulin Ratio 0.7 (0.9-2); Alkaline Phosphatase 56 U/L (45-117); Bilirubin,Total 0.8 mg/dl (0.2-1); Globulin 3.2 gm/dl (2.5-4.0); Total Protein 5.5 gm/dl (6.4-8.2); Troponin I < 0.015 ng/ml (0-0.045)
[2018-10-02] MEDS ORDERED: IOVERSOL 100ml IV PRN ×2 (13:26→14:48)
[2018-10-02] MEDS ORDERED: TRANEXAMIC ACID 100 MG/ML 10 ML VIAL INH ONE (13:30)
[2018-10-02] MEDS ORDERED: EPINEPHrine 2 MG in DEXTROSE 5% 250 ML IV SCH (13:30)
[2018-10-02] MEDS ORDERED: NOREPINEPHRINE BIT INJ 4 MG in DEXTROSE 5% 250 ML IV SCH (13:30)
[2018-10-02] MEDS ORDERED: GLYCOPYRROLATE 0.2 MG/ML VIAL ONE (13:35)
--- NOTE | 2018-10-02 13:35 | CT Scan Report ---
CT head/brain wo con CLINICAL HISTORY: 73 years-old Male presenting with bleeding . TECHNIQUE: Multidetector CT imaging of the head was performed without the use of intravenous contrast . IV contrast: None. One or more dose lowering techniques were used consistent with the principles of ALARA (as low as reasonably achievable), including automatic exposure control, mA or kV adjustment t o individual patient size, and/or use of iterative reconstruction. COMPARISON: 08/25/2018. CT DOSE (mGy.cm): The estimated cumulative dose is 1261.59 mGy.cm. FINDINGS: Pairer Inspector topogram: Reverse left total shoulder arthroplasty. Ventricles and sulci normal in size. No hemorrhage. 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 No acut e territorial infarct. No mass effect or midline shift. No extra-axial fluid collection. Inspissated high density material in the right maxillary sinus similar to prior exam. Mucosal thickening in the s phenoid sinuses and fluid in the left mastoid air cells unchanged. Sclerosis of the sinus mckenzie indic ative of chronic sinusitis. Calvarium intact. IMPRESSION: 1. No significant change compared to the prior study. No acute intracranial abnormality. 2. 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 3. Evidence of chronic sinusitis. Electronically signed by: Marcelino Elaine M.D. 10/02/2018 1:34 PM
[2018-10-02 13:43] LABS: Mean Platelet Volume 10.8 fL (7.4-10.4); Metamyelocytes # (manual) 0.95 K/uL (0-0); Metamyelocytes % (manual) 12.5 %; Monocytes % (manual) 2.7 %; Myelocytes # (manual) 0.14 K/uL (0-0); Myelocytes % (manual) 1.8 %; Platelet Count 81 K/uL (130-400); RBC Morphology Unremarkable
--- NOTE | 2018-10-02 13:48 | CT Scan Report ---
CT soft tissue neck w con HISTORY: neck mass coughing up blood TECHNIQUE: Multiaxial CT images of the neck were performed following the use of intravenous contrast. COMPARISON STUDY: Facial bone CT 06/13/2018. PET CT 07/24/2018. FINDINGS: Anterior to the clivis and located within the nasopharyngeal soft tissues there is persiste nt abnormal thickening and calcification consistent with the patient's known mass. This encases the d istal internal carotid arteries and jugular veins. This results in mild narrowing of the right distal internal jugular vein which has improved. There are few calcified and mildly enlarged lateral retrop haryngeal lymph nodes and upper cervical lymph nodes. These remain unchanged. The nasopharyngeal mass is most pronounced along the right side of the nasopharyngeal soft tissues and has slightly decrease d in size currently measuring 3.6 x 2.1 cm, previously measuring 4.3 x 3.0 cm. There is persistent so ft tissue thickening of the soft palate/uvula. This has progressed and measures up to 1.5 cm in thick ness. However, the degree of airway narrowing at the posterior oropharynx has slightly improved given the decrease in size of the nasopharyngeal soft tissue mass. This results in mild to moderate narrow ing of the oropharynx. The remaining airway is widely patent. The epiglottis is at the upper limits of normal. Trace fluid within the hypopharynx posteriorly. There is a 1.3 cm left thyroid nodule. No prevertebral edema. The salivary glands enhance symmetrically. The visualized brain parenchyma is un remarkable. Partial opacification of the right maxillary sinus and mild mucosal thickening within the left maxillary sinus and ethmoid air cells. No pneumothorax. Opacified left mastoid air cells and le ft middle ear cavity. There are few opacified right mastoid air cells and partial opacification the r ight middle ear cavity. Degenerative changes throughout the cervical spine. IMPRESSION: 1. Slight decrease in size in the nasopharyngeal mass compared to the prior study. The prominent uppe r cervical partially calcified lymph nodes remain unchanged. 2. Progressive soft tissue thickening of the soft palate/uvula which could be due to post radiation c hanges. This results in mild to moderate narrowing of the posterior oropharynx airway. However, this is also slightly improved given the decrease in size in the nasopharyngeal mass. 3. The epiglottis is at the upper limits of normal for thickness. However, the hypopharyngeal airway is widely patent. There is also trace fluid within the posterior hypopharynx. 4. Paranasal sinus and mastoid air cell disease as described above. 5. These findings were discussed with Dr. Sanford at 1:35 PM on 10/02/2018. Electronically signed by: Noman Moise M.D. 10/02/2018 1:46 PM
[2018-10-02] MEDS ORDERED: ICU PROTOCOL FOR HYPERGLYCEMIA PRN (14:19)
[2018-10-02 14:22] LABS: iSTAT Arterial Blood Gas HCO3 36 meg/L (19-24); iSTAT Carbon Dioxide 39 mEq/l (24-31)
--- NOTE | 2018-10-02 14:36 | Procedure Note ---
Procedure Note Date of Service October 02, 2018 Procedure date: Noted above Procedure: Central venous access Pre-procedure Diagnosis: CODE BLUE, need for vasoactive medication Post-procedure Diagnosis: same as above Prior to Procedure: Informed Consent: The risks, benefits, indications, potential complications, and alternatives were not explained to the patient and informed consent obtained. Emergency consent implied Attending Staff: Olivia Sanford DO Resident/APC: Not applicable Skin Prep: Chlorhexidine Anesthesia: 3 mL 1% lidocaine without epinephrine The identity of the patient was confirmed and a bedside time out was performed. Description of Procedure: After sterile prep and sterile drape utilizing standard sterile technique the superficial skin of the right subclavian area was anesthetized. The target vessel was identified and entered with an 18- gauge needle. Dark venous blood return was noted. A guidewire was inserted through the needle and into the vessel. The needle was withdrawn and a skin jaylan was made. A tissue dilator was advanced via Seldinger technique and removed. A triple lumen catheter was inserted via Seldinger technique and the guidewire removed. All ports alvarez and flushed easily. A Biopatch was placed, and the catheter was secured via silk suture. A sterile dressing was then applied. Complications: None Estimated blood loss: Trace Patient tolerated the procedure well.
--- NOTE | 2018-10-02 14:38 | Procedure Note ---
Procedure Note Date of Service October 02, 2018 Procedure date: Noted above Procedure: Radial artery cannulation Pre-procedure Diagnosis: Need for invasive monitoring, hypotension and frequent blood draws with hypoxic respiratory failure Post-procedure Diagnosis: same as above Prior to Procedure: Informed Consent: Emergency consent implied Attending Staff: Olivia Sanford DO Skin Prep: Chlorhexidine Anesthesia: 2 mL 1% lidocaine without epinephrine The identity of the patient was confirmed and a bedside time out was performed. Description of Procedure: After sterile prep and sterile drape utilizing standard sterile technique the superficial skin of the left radial radial artery was anesthetized. The target artery was identified and entered with a 20 -gauge arrow Angiocath via dynamic ultrasound guidance. Pulsatile bright red blood return was noted. Via modified Seldinger technique the self-contained guidewire was advanced and the Angiocath advanced over the guidewire. The guidewire was removed and brisk arterial blood return was noted. The pressure monitor was connected, and the arterial line was secured via commercial securement device. A sterile dressing was then applied. Complications: None Estimated blood loss: Trace Patient tolerated the procedure well.
--- NOTE | 2018-10-02 14:48 | Critical Care Consultation ---
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 PLAN: Neuro: Cancer pain -Recent increase in fentanyl patch dosing Resp: Hemoptysis -CTA of chest pending -Emergent bronchoscopy CV: History atrial fibrillation -No apparent anticoagulation at this time Cardiac arrest -Trend troponins -Echocardiogram -Wean vasoactive's as tolerated Fluids/Renal: Acute kidney injury -Creatinine 2.2 appears baseline around 1 -Bicarb infusion ID: History urinary tract infection Chronic sinusitis secondary to obstruction -Blood cultures pending -Fungal blood culture pending -Patient now on antifungals at baseline GI/Nutrition: Bright red blood per rectum -Gastroenterology consult -H&H every 6 Heme: Acute blood loss anemia -Received 3 units packed red blood cells in emergency department DVT prophylaxis: Mechanical prophylaxis at this time, chemical prophylaxis contraindicated with acute blood loss Endocrine: ICU hyperglycemia protocol Vascular access: Right subclavian, left radial art line Code Status: Full code as confirmed by prior records and emergency physician discussion with patient. Patient previously seen by palliative care I have requested they follow patient as well. I have personally spent 100 minutes of critical care time in the direct management of this patient. This is a life/limb threatening event. This includes time spent evaluating patient, direct bedside care, chart review, placing orders, interpretation of diagnostic studies, discussion with consultants, patient, and/or family members regarding treatment decisions, as well as other required patient management activities. This time is exclusive of all separately billable procedures, and teaching time and separate from and in addition to any other critical care service time. Clinical update: After bronchoscopy was clear the patient had significant pulmonary edema and was requiring extremely high levels of PEEP. Going into acute respiratory distress syndrome most likely is secondary to massive aspiration with a history of bilateral paralyzed vocal cords. He quickly became obvious that the patient was entering refractory hypoxemia and we were also having difficulty ventilating the patient and this was going to be a nonsurvivable injury. I expressed this to the patient's . We continued aggressive medical treatment and attempt to prolong his survival until his sister can arrive at approximately 7 PM from [facility]. Patient is in end-stage terminal condition without meaningful chance of recovery. Ultimately at approximately 1900 the patient went in to cardiac arrest a second time with his present at the bedside she requested all resuscitative efforts ceased and the patient . Please refer to the code sheet as well as the hospitalist pronouncement note. 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 It is also infiltrating into the right jugular and possibly carotid artery. He presents today with generalized weakness, bright red blood per rectum, as well as hemoptysis. The emergency department attempted to obtain advanced imaging while reviewing previous records from [facility]. The patient was not able to tolerate laying flat. We obtained a CT scan of the neck which did not demonstrate significant occlusion of the upper airway nor did it demonstrate the etiology of the patient's possible hemoptysis. It was confirmed that the patient wanted to be a full resuscitation in event of cardiac arrest. Attempted to review prior records it appears that the mass is unresectable per ear nose and throat surgery and he was evaluated by skull base surgeon at [facility]. It is clear that he is undergoing palliative radiation here. Patient has not on blood thinners that appear in the records. It is difficult to obtain additional history from the patient's as Japanese is not her nuiqsut language. The patient was in obvious extremis with acute hypoxic respiratory failure. The imaging obtained was unable to elucidate the cause of the hemoptysis nor the bright red blood per rectum so it was felt the best course of action was to secure the patient's airway to allow for bronchoscopy as well as possible endoscopy. This was achieved. Shortly thereafter the patient suffered pulseless electrical activity, it is my assumption that this is likely to metabolic acidosis he received 1 mg of epinephrine and a short course of high- quality CPR and we had return of spontaneous circulation. A right subclavian triple-lumen catheter was emergently placed as well as a emergent left radial art line. The patient was stabilized on Levophed and sent for CT evaluation of the hemoptysis and admitted to the ICU. Allergies Allergy/AdvReac Type Severity Reaction Status Date / Time No Known Drug Allergies Allergy Unknown NONE Verified 09/23/18 11:41 pollen extracts Allergy Unknown NASAL Verified 09/23/18 11:41 CONGESTION, INCREASED PHLEGM Home Medications Home Medications Medication Instructions Recorded Confirmed Type allopurinol 300 mg PO QAM 06/13/18 10/02/18 History amlodipine 5 mg PO QAM 06/13/18 10/02/18 History doxazosin 8 mg PO HS 06/13/18 10/02/18 History finasteride [Proscar] 5 mg PO QAM 06/13/18 10/02/18 History furosemide [Lasix] 20 mg PO QAM 06/13/18 10/02/18 History meloxicam 15 mg PO QAM 06/13/18 10/02/18 History acetaminophen 325 mg capsule 650 mg PO DAILY PRN cap 08/07/18 10/02/18 History gabapentin 250 mg/5 mL oral 300 mg PO TID ml 08/07/18 10/02/18 History solution lisinopril 20 mg tablet 20 mg PO QAM 08/07/18 10/02/18 History oxycodone 5 mg/5 mL oral solution 5 mg FEEDING TUBE Q4H PRN ml 08/07/18 History nutritional supplements 0.07 250 ea FEEDING TUBE 5XD ml 09/04/18 10/02/18 History gram-1.5 kcal/mL liquid for tube feed fluconazole 100 mg tablet 100 mg PO DAILY 14 Days #7 tab 09/09/18 10/02/18 Rx omeprazole 20 mg capsule,delayed 20 mg PO DAILY 28 Days #30 cap 09/11/18 Rx release dexamethasone [Decadron] 4 mg PO BID 10/02/18 10/02/18 History metoprolol tartrate 50 mg PO BID 10/02/18 10/02/18 History Patient History Medical History Paroxysmal atrial fibrillation (Chronic) HTN (hypertension) (Chronic) 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 HTN (hypertension) (Chronic) Orchitis of right testicle (Chronic) Dyslipidemia (Chronic) Left knee DJD (Chronic) Enlarged prostate with lower urinary tract symptoms (LUTS) (Chronic) DJD of shoulder (Chronic) BPH (benign prostatic hyperplasia) (Chronic) Bilateral renal cysts (Chronic) Carotid stenosis (Chronic) Dyslipidemia (Chronic) GERD (gastroesophageal reflux disease) (Chronic) Gouty arthropathy (Chronic) Benign neoplasm of colon (Resolved) 02/10/15 - Adenomatous & Hyperplatic Polyps removed History of shingles (Resolved) on chest across right side and back Surgical History S/P shoulder joint replacement (Chronic) H/O hemorrhoidectomy (Chronic) H/O left knee surgery (Chronic) S/P TURP (Chronic) S/P appy (Chronic) H/O sinus surgery (Resolved) 03/19/2018 H/O transurethral resection of prostate (Resolved) History of appendectomy (Resolved) as a child History of cardiac radiofrequency ablation (Resolved) 2012 S/P percutaneous endoscopic gastrostomy (PEG) tube placement (Resolved) 03/19/18 Family History Father , Passed age 76 of [place] No problems noted. Mother , Passed in 80's of old age/dementia No problems noted. Sister No problems noted. Family/Other , Patient has no children No problems noted. 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 Feels Safe at Home: Yes Smoking Status: Unknown if ever smoked Hx Alcohol Use: No Hx Substance Use: No Beliefs That Will Affect Care: None Preferred Language: Japanese during the past year weight has: decreased > 10 lbs Review of Systems Unable to obtain complete review of systems due to acuity of situation and patient inability to speak in full sentences Physical Exam 2 Vital Signs (Past 24 Hours): Last Vital Signs Pulse 113 H 10/02/18 14:20 Resp 22 10/02/18 13:46 BP 85/42 L 10/02/18 14:12 Pulse Ox 88 L 10/02/18 14:20 General: Elderly male appears his stated age I have reviewed the recorded vital signs Neurological: RASS score: 0, Moves all 4 extremities, Psychological: Glascow Coma Scale: Eyes: 4, Verbal 5, Motor 6, Total 15 following complex commands Eyes: Pupils are equal, round and reactive to light, anicteric sclera. Symmetrical lids. HENT: Dark blood in the oropharynx, moist mucous membranes, fullness in the submental tissues I am able to palpate the patient's tracheal cartilages. Neck: Supple. Symmetric. trachea midline. No thyromegaly. Cardiovascular: Poor peripheral perfusion. Distal pulses and capillary refill decreased. No JVD. Respiratory: Respirations are labored and noisy, no accessory muscle use. Breath sounds are equal. Gastrointestinal: Soft. Non-distended. Lymphatic: No cervical lymphadenopathy. Musculoskeletal: No deformity. No clubbing nor cyanosis. Results & Data Laboratory Results 10/02/18 10/02/18 10/02/18 Range/Units Unknown 14:06 13:03 WBC (4.8-10.8) K/uL RBC (4.7-6.1) M/uL Hgb (14.0-18.0) g/dL POC Hgb (14.0-18.0) g/dl Hct (42-52) % POC Hct (42-52) % MCV (80-100) fL MCH (25-34) pg MCHC (32-36) g/dL RDW Std Deviation (36.4-46.3) fL RDW Coeff of Rory (11.5-14.5) % Plt Count (130-400) K/uL MPV (7.4-10.4) fL Neutrophils % (Manual) % Lymphocytes % (Manual) % Monocytes % (Manual) % Metamyelocytes % (Man) % Myelocytes % (Man) % Neutrophils # (Manual) (1.4-6.5) K/uL Total Absolute Neuts (1.4-6.5) K/uL Total Abs Lymphocytes (1.2-3.4) K/uL Monocytes # (Manual) (0.11-0.59) K/uL Metamyelocytes # (Man) (0-0) K/uL Myelocytes # (Manual) (0-0) K/uL Platelet Estimate (Normal) RBC Morphology PT (9.0-12.0) Seconds POC INR 1.1 (0.9-1.1) INR (0.9-1.1) APTT (21.0-31.0) Seconds PTT Ratio POC pH 7.23 L (7.35-7.45) POC pCO2 86 H (35-46) mmHg POC pO2 61 L (80-95) mmHg POC HCO3 36 H (19-24) michelle/L POC Base Excess 8.0 H (-9-1.8) michelle/L POC ABG O2 Sat 84.0 L (90-95) % POC Sodium (135-144) mEq/L Sodium (136-145) mmol/L POC Potassium (3.3-5.0) mEq/L Potassium (3.5-5.1) mmol/L POC Chloride (101-112) mEq/L Chloride (98-107) mmol/L Carbon Dioxide (21-32) mmol/L POC Total CO2 39 H (24-31) mEq/l Anion Gap (3-11) POC Anion Gap (16-25) mmol/L POC BUN (7-18) mg/dl BUN (7-18) mg/dl Creatinine (0.6-1.4) mg/dl POC Creatinine (0.6-1.3) mg/dl Est Cr Clr Drug Dosing Est GFR ( Amer) Est GFR (Non-Af Amer) BUN/Creatinine Ratio (10-20) Glucose (70-99) mg/dl POC Glucose (other) (70-99) mg/dl Lactate 5.7 H* (0.4-2.0) mmol/L Calcium (8.5-10.1) mg/dl POC Ioniz Calcium Nica (1.12-1.32) mmol/l Total Bilirubin (0.2-1) mg/dl AST (15-37) U/L ALT (12-78) U/L Alkaline Phosphatase (45-117) U/L Troponin I (0-0.045) ng/ml Total Protein (6.4-8.2) gm/dl Albumin (3.4-5.0) gm/dl Globulin (2.5-4.0) gm/dl Albumin/Globulin Ratio (0.9-2) Blood Type Blood Type Recheck Antibody Screen Crossmatch 10/02/18 10/02/18 10/02/18 Range/Units 12:50 12:50 12:50 WBC (4.8-10.8) K/uL RBC (4.7-6.1) M/uL Hgb (14.0-18.0) g/dL POC Hgb 11.6 L (14.0-18.0) g/dl Hct (42-52) % POC Hct 34 L (42-52) % MCV (80-100) fL MCH (25-34) pg MCHC (32-36) g/dL RDW Std Deviation (36.4-46.3) fL RDW Coeff of Rory (11.5-14.5) % Plt Count (130-400) K/uL MPV (7.4-10.4) fL Neutrophils % (Manual) % Lymphocytes % (Manual) % Monocytes % (Manual) % Metamyelocytes % (Man) % Myelocytes % (Man) % Neutrophils # (Manual) (1.4-6.5) K/uL Total Absolute Neuts (1.4-6.5) K/uL Total Abs Lymphocytes (1.2-3.4) K/uL Monocytes # (Manual) (0.11-0.59) K/uL Metamyelocytes # (Man) (0-0) K/uL Myelocytes # (Manual) (0-0) K/uL Platelet Estimate (Normal) RBC Morphology PT (9.0-12.0) Seconds POC INR (0.9-1.1) INR (0.9-1.1) APTT (21.0-31.0) Seconds PTT Ratio POC pH (7.35-7.45) POC pCO2 (35-46) mmHg POC pO2 (80-95) mmHg POC HCO3 (19-24) michelle/L POC Base Excess (-9-1.8) michelle/L POC ABG O2 Sat (90-95) % POC Sodium 138 (135-144) mEq/L Sodium (136-145) mmol/L POC Potassium 5.8 H (3.3-5.0) mEq/L Potassium (3.5-5.1) mmol/L POC Chloride 99 L (101-112) mEq/L Chloride (98-107) mmol/L Carbon Dioxide (21-32) mmol/L POC Total CO2 30 (24-31) mEq/l Anion Gap (3-11) POC Anion Gap 16.0 (16-25) mmol/L POC BUN 82 H (7-18) mg/dl BUN (7-18) mg/dl Creatinine (0.6-1.4) mg/dl POC Creatinine 2.0 H (0.6-1.3) mg/dl Est Cr Clr Drug Dosing Est GFR ( Amer) Est GFR (Non-Af Amer) BUN/Creatinine Ratio (10-20) Glucose (70-99) mg/dl POC Glucose (other) 142 H (70-99) mg/dl Lactate (0.4-2.0) mmol/L Calcium (8.5-10.1) mg/dl POC Ioniz Calcium Nica 1.12 (1.12-1.32) mmol/l Total Bilirubin (0.2-1) mg/dl AST (15-37) U/L ALT (12-78) U/L Alkaline Phosphatase (45-117) U/L Troponin I (0-0.045) ng/ml Total Protein (6.4-8.2) gm/dl Albumin (3.4-5.0) gm/dl Globulin (2.5-4.0) gm/dl Albumin/Globulin Ratio (0.9-2) Blood Type O Positive Blood Type Recheck O Positive Antibody Screen NEGATIVE Crossmatch See Detail 10/02/18 10/02/18 10/02/18 Range/Units 12:50 12:50 12:50 WBC 7.58 (4.8-10.8) K/uL RBC 3.79 L (4.7-6.1) M/uL Hgb 11.7 L (14.0-18.0) g/dL POC Hgb (14.0-18.0) g/dl Hct 36.4 L (42-52) % POC Hct (42-52) % MCV 96.0 (80-100) fL MCH 30.9 (25-34) pg MCHC 32.1 (32-36) g/dL RDW Std Deviation 55.6 H (36.4-46.3) fL RDW Coeff of Rory 15.9 H (11.5-14.5) % Plt Count 81 L (130-400) K/uL MPV 10.8 H (7.4-10.4) fL Neutrophils % (Manual) 83.0 % Lymphocytes % (Manual) 0.0 % Monocytes % (Manual) 2.7 % Metamyelocytes % (Man) 12.5 % Myelocytes % (Man) 1.8 % Neutrophils # (Manual) 6.29 (1.4-6.5) K/uL Total Absolute Neuts 6.29 (1.4-6.5) K/uL Total Abs Lymphocytes 0.00 L (1.2-3.4) K/uL Monocytes # (Manual) 0.20 (0.11-0.59) K/uL Metamyelocytes # (Man) 0.95 H (0-0) K/uL Myelocytes # (Manual) 0.14 H (0-0) K/uL Platelet Estimate Decreased (Normal) RBC Morphology Unremarkable PT 11.1 (9.0-12.0) Seconds POC INR (0.9-1.1) INR 1.1 (0.9-1.1) APTT 23.4 (21.0-31.0) Seconds PTT Ratio 0.9 POC pH (7.35-7.45) POC pCO2 (35-46) mmHg POC pO2 (80-95) mmHg POC HCO3 (19-24) michelle/L POC Base Excess (-9-1.8) michelle/L POC ABG O2 Sat (90-95) % POC Sodium (135-144) mEq/L Sodium 138 (136-145) mmol/L POC Potassium (3.3-5.0) mEq/L Potassium 5.7 H (3.5-5.1) mmol/L POC Chloride (101-112) mEq/L Chloride 101 (98-107) mmol/L Carbon Dioxide 29 (21-32) mmol/L POC Total CO2 (24-31) mEq/l Anion Gap 9.0 (3-11) POC Anion Gap (16-25) mmol/L POC BUN (7-18) mg/dl BUN 89 H (7-18) mg/dl Creatinine 2.20 H (0.6-1.4) mg/dl POC Creatinine (0.6-1.3) mg/dl Est Cr Clr Drug Dosing Not Reportable Est GFR ( Amer) 33.2 Est GFR (Non-Af Amer) 28.7 BUN/Creatinine Ratio 40.6 H (10-20) Glucose 145 H (70-99) mg/dl POC Glucose (other) (70-99) mg/dl Lactate (0.4-2.0) mmol/L Calcium 8.3 L (8.5-10.1) mg/dl POC Ioniz Calcium Nica (1.12-1.32) mmol/l Total Bilirubin 0.8 (0.2-1) mg/dl AST 38 H (15-37) U/L ALT 73 (12-78) U/L Alkaline Phosphatase 56 (45-117) U/L Troponin I < 0.015 (0-0.045) ng/ml Total Protein 5.5 L (6.4-8.2) gm/dl Albumin 2.3 L (3.4-5.0) gm/dl Globulin 3.2 (2.5-4.0) gm/dl Albumin/Globulin Ratio 0.7 L (0.9-2) Blood Type Blood Type Recheck Antibody Screen Crossmatch
--- NOTE | 2018-10-02 15:05 | CT Scan Report ---
CT angio chest PE protocol CLINICAL HISTORY: 73 years-old Male presenting with hemoptysis, clinical concern for pulmonary embolu s. TECHNIQUE: Multidetector CT angiography of the chest was performed after administration of intravenou s contrast. 3-D volumetric and/or maximum intensity projection (MIP) images were subsequently reconst ructed for review. IV contrast: 94 mL of Optiray 320. One or more dose lowering techniques were used consistent with the principles of ALARA (as low as reasonably achievable), including automatic exposu re control, mA or kV adjustment to individual patient size, and/or use of iterative reconstruction. COMPARISON: Outside chest CT from 06/10/2018 and outside PET/CT from 07/24/2018. CT DOSE (mGy.cm): The estimated cumulative dose is 2447.95 mGy.cm. FINDINGS: [employer] topogram: Reverse left total shoulder arthroplasty. Endotracheal tube terminates in the mid tho racic trachea. Bibasilar opacities. Lumbar fusion hardware. Pulmonary vasculature: The study is suboptimal for the assessment of the pulmonary vascular tree secondary to timing of the contrast bolus and respiratory motion artifact. Allowing for limited image quality, no central fillin g defect to suggest pulmonary embolus. Main pulmonary artery enlarged measuring 3.4 cm in diameter. N o flattening of the interventricular septum. No intracardiac filling defect. No reflux of contrast in to the hepatic veins. Remaining chest: On soft tissue windows, mild enlargement of the thyroid gland. Endotracheal tube position of the mid thoracic trachea. Right subclavian central venous catheter terminates in the upper SVC. No axillary, supraclavicular, hilar, or mediastinal lymphadenopathy. Atherosclerosis of the aorta. Normal heart si ze. Coronary artery calcification. No pericardial or pleural effusion. Upper abdomen normal. On lung windows, extensive consolidation in the bilateral lower lobes with minimal residual aeration. There is no significant volume loss of the lower lobes. Slightly less extensive consolidation in dep endent portions of the upper lobes, right middle lobe, lingula. Multifocal nodular consolidation exte nsively apices. Extensive layering debris in the trachea. The lower lobe airways are largely opacifie d. Cystic lesion or bulla noted in the left lower lobe. No pneumothorax. On bone windows, degenerative changes of the spine. IMPRESSION: 1. Allowing for suboptimal image quality, no evidence of pulmonary embolus. 2. Severe bilateral dependent predominant consolidation highly suspicious for massive aspiration. 3. Layering debris in the trachea. 4. Appropriate positioned endotracheal tube and right subclavian central venous catheter. Electronically signed by: Marcelino Elaine M.D. 10/02/2018 3:04 PM
--- NOTE | 2018-10-02 15:21 | CT Scan Report ---
ABDOMEN AND PELVIS CT WITH IV CONTRAST HISTORY: Acute hemoptysis brbpr TECHNIQUE: Multiaxial CT images of the abdomen and pelvis were performed following the use of intrave nous contrast. A dose lowering technique was utilized adhering to the principles of ALARA. COMPARISON STUDY: CTA chest of same day, PET CT 07/24/2018. FINDINGS: Extensive bibasilar consolidation with groundglass densities and trace left pleural effusion. Tracheo bronchial secretions are also noted. Thin-walled 4.4 cm cyst about the lateral basal segment left low er lobe. No pneumatosis or pneumoperitoneum. The imaged inferior cardiac chambers appear unremarkable . Mildly contracted gallbladder. The liver, spleen, pancreas and adrenal glands appear unremarkable. Mi ld nonspecific bilateral perinephric stranding. Delayed phase of contrast in the collecting systems f rom CTA chest. There are several hypodense lesions about the bilateral kidneys, several of which are too small to characterize. The larger lesions measuring up to 9.6 x 8.6 cm within the inferior pole r ight kidney demonstrate imaging characteristics compatible with renal cysts. 5 mm nonobstructing calc ulus of the superior pole left kidney. No ureteral calculi identified. Aguirre catheter noted within a decompressed urinary bladder lumen. Prostamegaly with frond like soft tissue extending into the base of the urinary bladder. Extensive mixed plaque relation about the abdominal aorta without aneurysm. N o adenopathy. Gastrostomy tube noted about the mid gastric lumen with trace air tracking along the catheter within the abdominal wall. No small bowel obstruction. Several fluid-filled loops of small bowel with air-fl uid levels are noted. Colonic diverticulosis without acute diverticulitis. Nondistention involves the majority of the colon. Moderate eccentric wall thickening noted about the splenic flexure and proxim al descending colon extending for a length of 7.6 cm seen best on the coronal images. No surrounding inflammation. Decompressed terminal ileum. The appendix is not seen. Soft tissues appear to be within normal limits. Bones appear to be intact. Asymmetric heterogeneous sclerosis about the right iliac b one with medullary coarsening. Laminectomy changes with posterior interbody evelia and screw fusion and discectomy at L4-L5. IMPRESSION: 1. Extensive bibasilar consolidative and groundglass opacities suggestive of aspiration and/or multif ocal pneumonia. 2. Trace left pleural effusion. 3. Apparent moderate eccentric wall thickening involves the splenic flexure and proximal descending c olon for a length of 7.6 cm. No surrounding inflammation identified. This finding likely reflects sto ol contents within the bowel lumen with underlying neoplasm or nonspecific colitis also within the di fferential. This could be correlated with colonoscopy if of further clinical concern. 4. No bowel obstruction. 5. Colonic diverticulosis without acute diverticulitis. Electronically signed by: Addi Galicia M.D. 10/02/2018 3:20 PM
[2018-10-02] MEDS ORDERED: EPINEPHrine 2 MG in DEXTROSE 5% 250 ML IV STA (15:33)
[2018-10-02] MEDS ORDERED: fentaNYL citrate 100 MCG/2 ML VIAL IV PRN ×2 (15:34)
[2018-10-02] MEDS ORDERED: MIDAZOLAM HCL 1 MG/ML 2ML VIAL IV PRN ×2 (15:34)
[2018-10-02] MEDS ORDERED: NOREPINEPHRINE BIT INJ 8 MG in DEXTROSE 5% 500 ML IV STA (15:34)
[2018-10-02] MEDS ORDERED: SODIUM CHLORIDE 0.9% 1000ML 1,000 ML IV ONE ×2 (15:41→15:42)
[2018-10-02] MEDS ORDERED: SODIUM CHLORIDE 0.9% 1000ML 1,000 ML IV STA (15:41)
--- NOTE | 2018-10-02 15:46 | Procedure Note ---
Procedure Note: Bronchoscopy Procedure Procedure date: Noted above Procedure: fiberoptic bronchoscopy Pre-procedure Diagnosis: Refractory hypoxemia Post-procedure Diagnosis: same as above Prior to Procedure: Informed Consent: Emergency consent implied Attending Staff: Olivia Sanford DO Resident/APC: Luis Merchant Skin Prep: Not applicable Anesthesia: Versed and fentanyl Indications: 73-year-old male who presented with hemoptysis, hypoxic respiratory failure who has undergone a PEA arrest who is now entering refractory hypoxemia. The identity of the patient was confirmed and a bedside time out was performed. Description of Procedure: Fiberoptic bronchoscopy was performed via endotracheal tube. Bronchioalveolar lavage right lower lobe was performed. Findings included: No evidence of diffuse alveolar hemorrhage, diffuse pulmonary edema in both right and left lung sam with thin bloody secretions. Complications: None Specimens: Bronchial washings sent for culture and Gram stain, cytology, fungal elements, and AFB stain and culture. Estimated blood loss: Zero
[2018-10-02 15:49] LABS: Hemoglobin 14.1 g/dL (14.0-18.0)
--- NOTE | 2018-10-02 15:49 | History & Physical Report ---
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 No cause of hemoptysis -CTA chest with severe bilateral dependent predominant consolidation highly suspicious for massive aspiration. No evidence of pulmonary embolus -Bronchoscopy performed by Dr. Sanford without evidence of diffuse alveolar hemorrhage, diffuse pulmonary edema in both right and left lung sam with thin bloody secretions -Mechanical vent settings per ICU management Cardiac arrest: -PEA rhythm in ED, ROSC with CPR and epi -Continue trending troponin, echo -Levophed management per ICU Acute blood loss anemia: In setting of hemoptysis, BRBPR -Hgb of 11.7 (baseline ~13) -Received 2u PRBCs in ED -Trend H/H Q4H Bright red blood per rectum: -Reported upon presentation -GI consulted: unlikely UGI bleed as PEG tube was aspirated 500 cc of yellow feeds without any evidence of blood. Rectal with brown semi-formed stool with tracing of bright red blood -Keep NPO, IV PPI BID, trend H/H -No current plan for endoscopy but GI to follow Unresectable Nasopharyngeal Amyloidosis: -Recently admitted at [facility] 08/26-09/01 for increased head/neck pain -Undergoing palliative radiation for amyloidosis -Has been taking APAP for headache pain at home, approximately 2g daily -Uses gastric PEG tube for liquid nutrition, unable to swallow solids or liquids Acute kidney injury: -In setting of hemoptysis, BRBPR -Cr of 2.2 (baseline ~1) -Continue to monitor Disposition: -Palliative care consulted in setting of unresectable nasopharyngeal amyloidosis , poor prognosis -Discussion with 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 Discharge planning ordered. Patient seen in collaboration with Dr. Harp. Please see addendum. 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 Has been seen by [facility]NT and a skull base surgeon and per record review, mass is unresectable. Has been undergoing palliative radiation locally. In the ED, imaging was obtained but soft tissue neck CT without cause of hemoptysis. Patient became acutely hypoxic and patient was intubated. Soon after, develiped PEA heart rhythm and code blue was called. ROSC was achieved after CPR and 1mg epinephrine. Dr. Sanford inserted central line and A line, Levophed was started and patient was transitioned to ICU. Patient's at bedside who determined patient to be a full code. History limited 2/2 speaking Zimbabwean as second language. Allergies Allergy/AdvReac Type Severity Reaction Status Date / Time No Known Drug Allergies Allergy Unknown NONE Verified 09/23/18 11:41 pollen extracts Allergy Unknown NASAL Verified 09/23/18 11:41 CONGESTION, INCREASED PHLEGM Home Medications Home Medications Medication Instructions Recorded Confirmed Type allopurinol 300 mg PO QAM 06/13/18 10/02/18 History amlodipine 5 mg PO QAM 06/13/18 10/02/18 History doxazosin 8 mg PO HS 06/13/18 10/02/18 History finasteride [Proscar] 5 mg PO QAM 06/13/18 10/02/18 History furosemide [Lasix] 20 mg PO QAM 06/13/18 10/02/18 History meloxicam 15 mg PO QAM 06/13/18 10/02/18 History acetaminophen 325 mg capsule 650 mg PO DAILY PRN cap 08/07/18 10/02/18 History gabapentin 250 mg/5 mL oral 300 mg PO TID ml 08/07/18 10/02/18 History solution lisinopril 20 mg tablet 20 mg PO QAM 08/07/18 10/02/18 History oxycodone 5 mg/5 mL oral solution 5 mg FEEDING TUBE Q4H PRN ml 08/07/18 History nutritional supplements 0.07 250 ea FEEDING TUBE 5XD ml 09/04/18 10/02/18 History gram-1.5 kcal/mL liquid for tube feed fluconazole 100 mg tablet 100 mg PO DAILY 14 Days #7 tab 09/09/18 10/02/18 Rx omeprazole 20 mg capsule,delayed 20 mg PO DAILY 28 Days #30 cap 09/11/18 Rx release dexamethasone [Decadron] 4 mg PO BID 10/02/18 10/02/18 History metoprolol tartrate 50 mg PO BID 10/02/18 10/02/18 History Past Med/Surg History Medical History Paroxysmal atrial fibrillation (Chronic) HTN (hypertension) (Chronic) 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 HTN (hypertension) (Chronic) Orchitis of right testicle (Chronic) Dyslipidemia (Chronic) Left knee DJD (Chronic) Enlarged prostate with lower urinary tract symptoms (LUTS) (Chronic) DJD of shoulder (Chronic) BPH (benign prostatic hyperplasia) (Chronic) Bilateral renal cysts (Chronic) Carotid stenosis (Chronic) Dyslipidemia (Chronic) GERD (gastroesophageal reflux disease) (Chronic) Gouty arthropathy (Chronic) Benign neoplasm of colon (Resolved) 02/10/15 - Adenomatous & Hyperplatic Polyps removed History of shingles (Resolved) on chest across right side and back Surgical History S/P shoulder joint replacement (Chronic) H/O hemorrhoidectomy (Chronic) H/O left knee surgery (Chronic) S/P TURP (Chronic) S/P appy (Chronic) H/O sinus surgery (Resolved) 03/19/2018 H/O transurethral resection of prostate (Resolved) History of appendectomy (Resolved) as a child History of cardiac radiofrequency ablation (Resolved) 2012 S/P percutaneous endoscopic gastrostomy (PEG) tube placement (Resolved) 03/19/18 Family History Father , Passed age 76 of [place] No problems noted. Mother , Passed in 80's of old age/dementia No problems noted. Sister No problems noted. Family/Other , Patient has no children No problems noted. 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 Feels Safe at Home: Yes Smoking Status: Unknown if ever smoked Hx Alcohol Use: No Hx Substance Use: No Beliefs That Will Affect Care: None Preferred Language: Zimbabwean during the past year weight has: decreased > 10 lbs Review of Systems Unobtainable due to endotracheal tube Physical Exam 2 Vital Signs (Past 24 Hours): Last Vital Signs Pulse 113 H 10/02/18 14:20 Resp 22 10/02/18 13:46 BP 85/42 L 10/02/18 14:12 Pulse Ox 88 L 10/02/18 14:20 Physical Exam: General Appearance: WD/WN, sedated with endotracheal tube in place Head: normocephalic, atraumatic Eyes: normal inspection, PERRL, EOMI ENT: hearing grossly normal, ET tube in place Neck: supple, no JVD, no adenopathy Respiratory/Chest: Coarse breath sounds bilaterally. No wheezes, rales or rhonci observed. Cardiovascular: tachycardic, regular rhythm, no murmur, normal peripheral pulses Abdomen/GI: normal bowel sounds, soft, non-tender to palpation Extremities/Musculoskelatal: normal inspection, no calf tenderness, normal capillary refill, no pedal edema Neurologic/Psych: sedated, on mechanical vent Skin: normal color, warm/dry Results & Data Laboratory Results Short CBC 10/02/18 10/02/18 Range/Units 12:50 15:34 WBC 7.58 (4.8-10.8) K/uL Hgb 11.7 L 14.1 (14.0-18.0) g/dL Hct 36.4 L 43.0 (42-52) % Plt Count 81 L (130-400) K/uL BMP 10/02/18 12:50 Sodium 138 Potassium 5.7 H Chloride 101 Carbon Dioxide 29 BUN 89 H Creatinine 2.20 H Glucose 145 H Calcium 8.3 L Cardiac Enzymes 10/02/18 10/02/18 Range/Units 12:50 15:34 Troponin I < 0.015 0.021 (0-0.045) ng/ml Liver Function 10/02/18 Range/Units 12:50 Total Bilirubin 0.8 (0.2-1) mg/dl AST 38 H (15-37) U/L ALT 73 (12-78) U/L Alkaline Phosphatase 56 (45-117) U/L Albumin 2.3 L (3.4-5.0) gm/dl Diagnostic Findings Head CT: IMPRESSION: 1. No significant change compared to the prior study. No acute intracranial abnormality. 2. 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 3. Evidence of chronic sinusitis. Soft tissue neck CT: IMPRESSION: 1. Slight decrease in size in the nasopharyngeal mass compared to the prior study. The prominent upper cervical partially calcified lymph nodes remain unchanged. 2. Progressive soft tissue thickening of the soft palate/uvula which could be due to post radiation changes. This results in mild to moderate narrowing of the posterior oropharynx airway. However, this is also slightly improved given the decrease in size in the nasopharyngeal mass. 3. The epiglottis is at the upper limits of normal for thickness. However, the hypopharyngeal airway is widely patent. There is also trace fluid within the posterior hypopharynx. 4. Paranasal sinus and mastoid air cell disease as described above. 5. These findings were discussed with Dr. Sanford at 1:35 PM on 10/02/2018. CXR: IMPRESSION: 1. Left lower lung zone airspace opacities consistent with pneumonia. Films subsequent to treatment are recommended in follow-up 2. Minor right basilar opacities, atelectasis versus pneumonia. Chest CTA: IMPRESSION: 1. Allowing for suboptimal image quality, no evidence of pulmonary embolus. 2. Severe bilateral dependent predominant consolidation highly suspicious for massive aspiration. 3. Layering debris in the trachea. 4. Appropriate positioned endotracheal tube and right subclavian central venous catheter. Abd/pelvis CT: IMPRESSION: 1. Extensive bibasilar consolidative and groundglass opacities suggestive of aspiration and/or multifocal pneumonia. 2. Trace left pleural effusion. 3. Apparent moderate eccentric wall thickening involves the splenic flexure and proximal descending colon for a length of 7.6 cm. No surrounding inflammation identified. This finding likely reflects stool contents within the bowel lumen with underlying neoplasm or nonspecific colitis also within the differential. This could be correlated with colonoscopy if of further clinical concern. 4. No bowel obstruction. 5. Colonic diverticulosis without acute diverticulitis. Supervising Physician Co-Signing Physician Notes I have seen and examined the patient and agree with the assessment and plan as listed in the history and assessment as written by my team's physician assistant art director and would like to add that This is a 73 year old Male under ICU level of care. He has coded in the emergency room and also intubated. As per intensive care physician the patient' s prognosis is very poor and while he is intubate for actue respiratory failure with hypoxia, the patient is only saturating in the 70s. To date patient has had bronchoscopy to explore the cause of hemoptysis and 2 units of PRBC for blood per rectum. Hospitalists have spoken with patient's at bedside [employer] via retail salesperson services who speak Mandarin. Patient's is waiting for the patient's sister Li [phone] to come from [place] Patient's Code Jorge is Full Code at this time as per my discussion with patient 's On exam patient is intubated eyes open but sedated on mechanical intubation heart rate is tachycardic to 120s
[2018-10-02] MEDS: NOREPINEPHRINE BIT INJ 8 MG in DEXTROSE 5% 500 ML IV SCH ×2 (15:53→18:06)
[2018-10-02] MEDS ORDERED: CISATRACURIUM BESYLATE 40 MG in 0.9 % SODIUM CHLORIDE 80 ML IV SCH (16:04)
[2018-10-02] MEDS ORDERED: fentaNYL citrate 100 MCG/2 ML VIAL IV STA (16:06)
[2018-10-02] MEDS ORDERED: MIDAZOLAM HCL 1 MG/ML 2ML VIAL IV ONE (16:07)
[2018-10-02] MEDS ORDERED: VECURONIUM BROMIDE 10 MG VIAL ONE (16:09)
--- NOTE | 2018-10-02 16:15 | Gastrointestinal Consultation ---
Date of Consultation October 02, 2018 Assessment & Plan (1) BRBPR (bright red blood per rectum): 73 year old male presenting with BRBPR, hemoptysis admitted to the ICU following acute hypoxic event, PEA w/ return of spontaneous circulation following CPR admitted to the ICU now sedated and intubated. 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 DDX: UGI vs LGI bleed. Unlikely UGI bleed as PEG tube was aspirated at bedside. Return of 500 cc of yellow feed without any evidence of blood nor coffee ground material. A rectal exam was performed by Dr. Garcia, with brown semi-formed stool with tracing of bright red blood. Imaging w/moderate eccentric wall thickening involves the splenic flexure and proximal descending colon. He likely has ischemic colitis secondary to events above. Additional ddx include: hemorrhoidal, diverticular, infectious etc - NPO - IV PPI BID - Trend H&H - Monitor all GI output - Transfuse as needed - Would rule out infection with stool for c.diff, stool culture - Given CT findings, leukocytosis and elevated lactic acid would recommend ABX coverage for suspected ischemic colitis - No current plan for endoscopy GI to re-evaluate Luis tomorrow. Thank you for allowing us to participate in the care of this patient. Please call with any acute changes, questions or concerns. Please see addendum below with additional recommendation from my supervising physician. Thank you for allowing us to participate in the care of this patient. Please call with any acute changes, questions or concerns. Please see addendum below with additional recommendation from my supervising physician. Present on Admission?: Yes Supervising Physician Co-Signing Physician Notes I performed a history and physical examination of the patient, including specifically on physical exam - soft, nontender abdomen. I have discussed the patient's management with Ju. Please refer to the nurse practitioner's note for the documented findings and plan of care. 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 CT scan ? colitis but in a territory highly consistent with ischemic colitis given his hypoperfusion. Recommend ABx, IV Hydration, circulatory support, PPI. No overt bleeding to require urgent endoscopic intervension at this point. 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 In the ED, labs, CT head/neck and CXR were obtained prior an acute hypoxic event, code blue was called. Airway was secured, pt sufferred PEA secondary to metabolic acidosis, he had return of spontaneous circulation following CPR. GI was asked to evaluate the pt for BRB. Pt was seen and evaluated, chart reviewed. No family at bedside. ICU attending and staff at bedside. Pt is sedated. Per review of records, presented to ED with rectal bleeding. Since arrival to the ICU there has not been any BRBPR, melena, coffee ground emesis/ hematemesis. Bronch: No evidence of diffuse alveolar hemorrhage, diffuse pulmonary edema in both right and left lung sam with thin bloody secretions. Head CT: No significant change compared to the prior study. No acute intracranial abnormality. 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 Neck CT: Slight decrease in size in the nasopharyngeal mass compared to the prior study. The prominent upper cervical partially calcified lymph nodes remain unchanged. Progressive soft tissue thickening of the soft palate/uvula which could be due to post radiation changes. This results in mild to moderate narrowing of the posterior oropharynx airway. However, this is also slightly improved given the decrease in size in the nasopharyngeal mass. The epiglottis is at the upper limits of normal for thickness. However, the hypopharyngeal airway is widely patent. There is also trace fluid within the posterior hypopharynx. Paranasal sinus and mastoid air cell disease as described above. These findings were discussed with Dr. Sanford at 1:35 PM on 10/02/2018. Chest XR: Left lower lung zone airspace opacities consistent with pneumonia. Films subsequent to treatment are recommended in follow-up Minor right basilar opacities, atelectasis versus pneumonia. Chest CTA: Allowing for suboptimal image quality, no evidence of pulmonary embolus.Severe bilateral dependent predominant consolidation highly suspicious for massive aspiration.Layering debris in the trachea.Appropriate positioned endotracheal tube and right subclavian central venous catheter. CT ABD/Pelvis: Extensive bibasilar consolidative and groundglass opacities suggestive of aspiration and/or multifocal pneumonia.Trace left pleural effusion. Apparent moderate eccentric wall thickening involves the splenic flexure and proximal descending colon for a length of 7.6 cm. No surrounding inflammation identified. This finding likely reflects stool contents within the bowel lumen with underlying neoplasm or nonspecific colitis also within the differential. This could be correlated with colonoscopy if of further clinical concern. No bowel obstruction. Colonic diverticulosis without acute diverticulitis. Colonoscopy 02/19/18: Three 3 to 4 mm polyps in the ascending colon, removed with a cold snare. Resected and retrieved. One 2 mm polyp in the transverse colon, removed with a jumbo cold forceps. Resected and retrieved. Diverticulosis in the sigmoid colon. The examined portion of the ileum was normal. Internal hemorrhoids. The examination was otherwise normal on direct and retroflexion views. Colonoscopy 02/15/15: Two 3 to 5 mm polyps in the ascending colon. Resected and retrieved. Two 3 to 4 mm polyps in the descending colon. Resected and retrieved. Diverticulosis in the sigmoid colon. Internal hemorrhoids.The examined portion of the ileum was normal. The examination was otherwise normal on direct and retroflexion views. Allergies Allergy/AdvReac Type Severity Reaction Status Date / Time No Known Drug Allergies Allergy Unknown NONE Verified 09/23/18 11:41 pollen extracts Allergy Unknown NASAL Verified 09/23/18 11:41 CONGESTION, INCREASED PHLEGM Home Medications Home Medications Medication Instructions Recorded Confirmed Type allopurinol 300 mg PO QAM 06/13/18 10/02/18 History amlodipine 5 mg PO QAM 06/13/18 10/02/18 History doxazosin 8 mg PO HS 06/13/18 10/02/18 History finasteride [Proscar] 5 mg PO QAM 06/13/18 10/02/18 History furosemide [Lasix] 20 mg PO QAM 06/13/18 10/02/18 History meloxicam 15 mg PO QAM 06/13/18 10/02/18 History acetaminophen 325 mg capsule 650 mg PO DAILY PRN cap 08/07/18 10/02/18 History gabapentin 250 mg/5 mL oral 300 mg PO TID ml 08/07/18 10/02/18 History solution lisinopril 20 mg tablet 20 mg PO QAM 08/07/18 10/02/18 History oxycodone 5 mg/5 mL oral solution 5 mg FEEDING TUBE Q4H PRN ml 08/07/18 History nutritional supplements 0.07 250 ea FEEDING TUBE 5XD ml 09/04/18 10/02/18 History gram-1.5 kcal/mL liquid for tube feed fluconazole 100 mg tablet 100 mg PO DAILY 14 Days #7 tab 09/09/18 10/02/18 Rx omeprazole 20 mg capsule,delayed 20 mg PO DAILY 28 Days #30 cap 09/11/18 Rx release dexamethasone [Decadron] 4 mg PO BID 10/02/18 10/02/18 History metoprolol tartrate 50 mg PO BID 10/02/18 10/02/18 History Patient History Medical History Paroxysmal atrial fibrillation (Chronic) HTN (hypertension) (Chronic) 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 HTN (hypertension) (Chronic) Orchitis of right testicle (Chronic) Dyslipidemia (Chronic) Left knee DJD (Chronic) Enlarged prostate with lower urinary tract symptoms (LUTS) (Chronic) DJD of shoulder (Chronic) BPH (benign prostatic hyperplasia) (Chronic) Bilateral renal cysts (Chronic) Carotid stenosis (Chronic) Dyslipidemia (Chronic) GERD (gastroesophageal reflux disease) (Chronic) Gouty arthropathy (Chronic) Benign neoplasm of colon (Resolved) 02/10/15 - Adenomatous & Hyperplatic Polyps removed History of shingles (Resolved) on chest across right side and back Surgical History S/P shoulder joint replacement (Chronic) H/O hemorrhoidectomy (Chronic) H/O left knee surgery (Chronic) S/P TURP (Chronic) S/P appy (Chronic) H/O sinus surgery (Resolved) 03/19/2018 H/O transurethral resection of prostate (Resolved) History of appendectomy (Resolved) as a child History of cardiac radiofrequency ablation (Resolved) 2012 S/P percutaneous endoscopic gastrostomy (PEG) tube placement (Resolved) 03/19/18 Family History Father , Passed age 76 of [place] No problems noted. Mother , Passed in 80's of old age/dementia No problems noted. Sister No problems noted. Family/Other , Patient has no children No problems noted. 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 Cardiovascular: Rate/Rhythm: + tachycardic Heart Sounds: normal S1 and normal S2 Gastrointestinal (Abdomen): normal bowel sounds, soft, nontender, no hepatosplenomegaly CHITO w/ semi-formed brown stool with tracing of BRB. No melena. PEG tube aspirated at bedside with return of 500 cc of yellow feed. Skin: no rashes, warm and dry Results & Data Laboratory Results 10/02/18 10/02/18 10/02/18 Range/Units Unknown 15:46 15:34 WBC (4.8-10.8) K/uL RBC (4.7-6.1) M/uL Hgb (14.0-18.0) g/dL POC Hgb (14.0-18.0) g/dl Hct (42-52) % POC Hct (42-52) % MCV (80-100) fL MCH (25-34) pg MCHC (32-36) g/dL RDW Std Deviation (36.4-46.3) fL RDW Coeff of Rory (11.5-14.5) % Plt Count (130-400) K/uL MPV (7.4-10.4) fL Neutrophils % (Manual) % Lymphocytes % (Manual) % Monocytes % (Manual) % Metamyelocytes % (Man) % Myelocytes % (Man) % Neutrophils # (Manual) (1.4-6.5) K/uL Total Absolute Neuts (1.4-6.5) K/uL Total Abs Lymphocytes (1.2-3.4) K/uL Monocytes # (Manual) (0.11-0.59) K/uL Metamyelocytes # (Man) (0-0) K/uL Myelocytes # (Manual) (0-0) K/uL Platelet Estimate (Normal) RBC Morphology PT (9.0-12.0) Seconds POC INR (0.9-1.1) INR (0.9-1.1) APTT (21.0-31.0) Seconds PTT Ratio Fibrinogen POC pH (7.35-7.45) POC pCO2 (35-46) mmHg POC pO2 (80-95) mmHg POC HCO3 (19-24) michelle/L POC Base Excess (-9-1.8) michelle/L POC ABG O2 Sat (90-95) % POC Sodium (135-144) mEq/L Sodium (136-145) mmol/L POC Potassium (3.3-5.0) mEq/L Potassium (3.5-5.1) mmol/L POC Chloride (101-112) mEq/L Chloride (98-107) mmol/L Carbon Dioxide (21-32) mmol/L POC Total CO2 (24-31) mEq/l Anion Gap (3-11) POC Anion Gap (16-25) mmol/L POC BUN (7-18) mg/dl BUN (7-18) mg/dl Creatinine (0.6-1.4) mg/dl POC Creatinine (0.6-1.3) mg/dl Est Cr Clr Drug Dosing Est GFR ( Amer) Est GFR (Non-Af Amer) BUN/Creatinine Ratio (10-20) Glucose (70-99) mg/dl POC Glucose (other) (70-99) mg/dl Lactate 5.7 H* Pending Calcium (8.5-10.1) mg/dl POC Ioniz Calcium Nica (1.12-1.32) mmol/l Total Bilirubin (0.2-1) mg/dl AST (15-37) U/L ALT (12-78) U/L Alkaline Phosphatase (45-117) U/L Troponin I 0.021 (0-0.045) ng/ml Total Protein (6.4-8.2) gm/dl Albumin (3.4-5.0) gm/dl Globulin (2.5-4.0) gm/dl Albumin/Globulin Ratio (0.9-2) Blood Type Blood Type Recheck Antibody Screen Crossmatch 10/02/18 10/02/18 10/02/18 Range/Units 15:34 15:34 14:06 WBC (4.8-10.8) K/uL RBC (4.7-6.1) M/uL Hgb 14.1 (14.0-18.0) g/dL POC Hgb (14.0-18.0) g/dl Hct 43.0 (42-52) % POC Hct (42-52) % MCV (80-100) fL MCH (25-34) pg MCHC (32-36) g/dL RDW Std Deviation (36.4-46.3) fL RDW Coeff of Rory (11.5-14.5) % Plt Count (130-400) K/uL MPV (7.4-10.4) fL Neutrophils % (Manual) % Lymphocytes % (Manual) % Monocytes % (Manual) % Metamyelocytes % (Man) % Myelocytes % (Man) % Neutrophils # (Manual) (1.4-6.5) K/uL Total Absolute Neuts (1.4-6.5) K/uL Total Abs Lymphocytes (1.2-3.4) K/uL Monocytes # (Manual) (0.11-0.59) K/uL Metamyelocytes # (Man) (0-0) K/uL Myelocytes # (Manual) (0-0) K/uL Platelet Estimate (Normal) RBC Morphology PT (9.0-12.0) Seconds POC INR (0.9-1.1) INR (0.9-1.1) APTT (21.0-31.0) Seconds PTT Ratio Fibrinogen Pending POC pH 7.23 L (7.35-7.45) POC pCO2 86 H (35-46) mmHg POC pO2 61 L (80-95) mmHg POC HCO3 36 H (19-24) michelle/L POC Base Excess 8.0 H (-9-1.8) michelle/L POC ABG O2 Sat 84.0 L (90-95) % POC Sodium (135-144) mEq/L Sodium (136-145) mmol/L POC Potassium (3.3-5.0) mEq/L Potassium (3.5-5.1) mmol/L POC Chloride (101-112) mEq/L Chloride (98-107) mmol/L Carbon Dioxide (21-32) mmol/L POC Total CO2 39 H (24-31) mEq/l Anion Gap (3-11) POC Anion Gap (16-25) mmol/L POC BUN (7-18) mg/dl BUN (7-18) mg/dl Creatinine (0.6-1.4) mg/dl POC Creatinine (0.6-1.3) mg/dl Est Cr Clr Drug Dosing Est GFR ( Amer) Est GFR (Non-Af Amer) BUN/Creatinine Ratio (10-20) Glucose (70-99) mg/dl POC Glucose (other) (70-99) mg/dl Lactate Calcium (8.5-10.1) mg/dl POC Ioniz Calcium Nica (1.12-1.32) mmol/l Total Bilirubin (0.2-1) mg/dl AST (15-37) U/L ALT (12-78) U/L Alkaline Phosphatase (45-117) U/L Troponin I (0-0.045) ng/ml Total Protein (6.4-8.2) gm/dl Albumin (3.4-5.0) gm/dl Globulin (2.5-4.0) gm/dl Albumin/Globulin Ratio (0.9-2) Blood Type Blood Type Recheck Antibody Screen Crossmatch 10/02/18 10/02/18 10/02/18 Range/Units 13:03 12:50 12:50 WBC (4.8-10.8) K/uL RBC (4.7-6.1) M/uL Hgb (14.0-18.0) g/dL POC Hgb 11.6 L (14.0-18.0) g/dl Hct (42-52) % POC Hct 34 L (42-52) % MCV (80-100) fL MCH (25-34) pg MCHC (32-36) g/dL RDW Std Deviation (36.4-46.3) fL RDW Coeff of Rory (11.5-14.5) % Plt Count (130-400) K/uL MPV (7.4-10.4) fL Neutrophils % (Manual) % Lymphocytes % (Manual) % Monocytes % (Manual) % Metamyelocytes % (Man) % Myelocytes % (Man) % Neutrophils # (Manual) (1.4-6.5) K/uL Total Absolute Neuts (1.4-6.5) K/uL Total Abs Lymphocytes (1.2-3.4) K/uL Monocytes # (Manual) (0.11-0.59) K/uL Metamyelocytes # (Man) (0-0) K/uL Myelocytes # (Manual) (0-0) K/uL Platelet Estimate (Normal) RBC Morphology PT (9.0-12.0) Seconds POC INR 1.1 (0.9-1.1) INR (0.9-1.1) APTT (21.0-31.0) Seconds PTT Ratio Fibrinogen POC pH (7.35-7.45) POC pCO2 (35-46) mmHg POC pO2 (80-95) mmHg POC HCO3 (19-24) michelle/L POC Base Excess (-9-1.8) michelle/L POC ABG O2 Sat (90-95) % POC Sodium 138 (135-144) mEq/L Sodium (136-145) mmol/L POC Potassium 5.8 H (3.3-5.0) mEq/L Potassium (3.5-5.1) mmol/L POC Chloride 99 L (101-112) mEq/L Chloride (98-107) mmol/L Carbon Dioxide (21-32) mmol/L POC Total CO2 30 (24-31) mEq/l Anion Gap (3-11) POC Anion Gap 16.0 (16-25) mmol/L POC BUN 82 H (7-18) mg/dl BUN (7-18) mg/dl Creatinine (0.6-1.4) mg/dl POC Creatinine 2.0 H (0.6-1.3) mg/dl Est Cr Clr Drug Dosing Est GFR ( Amer) Est GFR (Non-Af Amer) BUN/Creatinine Ratio (10-20) Glucose (70-99) mg/dl POC Glucose (other) 142 H (70-99) mg/dl Lactate Calcium (8.5-10.1) mg/dl POC Ioniz Calcium Nica 1.12 (1.12-1.32) mmol/l Total Bilirubin (0.2-1) mg/dl AST (15-37) U/L ALT (12-78) U/L Alkaline Phosphatase (45-117) U/L Troponin I (0-0.045) ng/ml Total Protein (6.4-8.2) gm/dl Albumin (3.4-5.0) gm/dl Globulin (2.5-4.0) gm/dl Albumin/Globulin Ratio (0.9-2) Blood Type Blood Type Recheck O Positive Antibody Screen Crossmatch 10/02/18 10/02/18 10/02/18 Range/Units 12:50 12:50 12:50 WBC (4.8-10.8) K/uL RBC (4.7-6.1) M/uL Hgb (14.0-18.0) g/dL POC Hgb (14.0-18.0) g/dl Hct (42-52) % POC Hct (42-52) % MCV (80-100) fL MCH (25-34) pg MCHC (32-36) g/dL RDW Std Deviation (36.4-46.3) fL RDW Coeff of Rory (11.5-14.5) % Plt Count (130-400) K/uL MPV (7.4-10.4) fL Neutrophils % (Manual) % Lymphocytes % (Manual) % Monocytes % (Manual) % Metamyelocytes % (Man) % Myelocytes % (Man) % Neutrophils # (Manual) (1.4-6.5) K/uL Total Absolute Neuts (1.4-6.5) K/uL Total Abs Lymphocytes (1.2-3.4) K/uL Monocytes # (Manual) (0.11-0.59) K/uL Metamyelocytes # (Man) (0-0) K/uL Myelocytes # (Manual) (0-0) K/uL Platelet Estimate (Normal) RBC Morphology PT 11.1 (9.0-12.0) Seconds POC INR (0.9-1.1) INR 1.1 (0.9-1.1) APTT 23.4 (21.0-31.0) Seconds PTT Ratio 0.9 Fibrinogen POC pH (7.35-7.45) POC pCO2 (35-46) mmHg POC pO2 (80-95) mmHg POC HCO3 (19-24) michelle/L POC Base Excess (-9-1.8) michelle/L POC ABG O2 Sat (90-95) % POC Sodium (135-144) mEq/L Sodium 138 (136-145) mmol/L POC Potassium (3.3-5.0) mEq/L Potassium 5.7 H (3.5-5.1) mmol/L POC Chloride (101-112) mEq/L Chloride 101 (98-107) mmol/L Carbon Dioxide 29 (21-32) mmol/L POC Total CO2 (24-31) mEq/l Anion Gap 9.0 (3-11) POC Anion Gap (16-25) mmol/L POC BUN (7-18) mg/dl BUN 89 H (7-18) mg/dl Creatinine 2.20 H (0.6-1.4) mg/dl POC Creatinine (0.6-1.3) mg/dl Est Cr Clr Drug Dosing Not Reportable Est GFR ( Amer) 33.2 Est GFR (Non-Af Amer) 28.7 BUN/Creatinine Ratio 40.6 H (10-20) Glucose 145 H (70-99) mg/dl POC Glucose (other) (70-99) mg/dl Lactate Calcium 8.3 L (8.5-10.1) mg/dl POC Ioniz Calcium Nica (1.12-1.32) mmol/l Total Bilirubin 0.8 (0.2-1) mg/dl AST 38 H (15-37) U/L ALT 73 (12-78) U/L Alkaline Phosphatase 56 (45-117) U/L Troponin I < 0.015 (0-0.045) ng/ml Total Protein 5.5 L (6.4-8.2) gm/dl Albumin 2.3 L (3.4-5.0) gm/dl Globulin 3.2 (2.5-4.0) gm/dl Albumin/Globulin Ratio 0.7 L (0.9-2) Blood Type O Positive Blood Type Recheck Antibody Screen NEGATIVE Crossmatch See Detail 10/02/18 Range/Units 12:50 WBC 7.58 (4.8-10.8) K/uL RBC 3.79 L (4.7-6.1) M/uL Hgb 11.7 L (14.0-18.0) g/dL POC Hgb (14.0-18.0) g/dl Hct 36.4 L (42-52) % POC Hct (42-52) % MCV 96.0 (80-100) fL MCH 30.9 (25-34) pg MCHC 32.1 (32-36) g/dL RDW Std Deviation 55.6 H (36.4-46.3) fL RDW Coeff of Rory 15.9 H (11.5-14.5) % Plt Count 81 L (130-400) K/uL MPV 10.8 H (7.4-10.4) fL Neutrophils % (Manual) 83.0 % Lymphocytes % (Manual) 0.0 % Monocytes % (Manual) 2.7 % Metamyelocytes % (Man) 12.5 % Myelocytes % (Man) 1.8 % Neutrophils # (Manual) 6.29 (1.4-6.5) K/uL Total Absolute Neuts 6.29 (1.4-6.5) K/uL Total Abs Lymphocytes 0.00 L (1.2-3.4) K/uL Monocytes # (Manual) 0.20 (0.11-0.59) K/uL Metamyelocytes # (Man) 0.95 H (0-0) K/uL Myelocytes # (Manual) 0.14 H (0-0) K/uL Platelet Estimate Decreased (Normal) RBC Morphology Unremarkable PT (9.0-12.0) Seconds POC INR (0.9-1.1) INR (0.9-1.1) APTT (21.0-31.0) Seconds PTT Ratio Fibrinogen POC pH (7.35-7.45) POC pCO2 (35-46) mmHg POC pO2 (80-95) mmHg POC HCO3 (19-24) michelle/L POC Base Excess (-9-1.8) michelle/L POC ABG O2 Sat (90-95) % POC Sodium (135-144) mEq/L Sodium (136-145) mmol/L POC Potassium (3.3-5.0) mEq/L Potassium (3.5-5.1) mmol/L POC Chloride (101-112) mEq/L Chloride (98-107) mmol/L Carbon Dioxide (21-32) mmol/L POC Total CO2 (24-31) mEq/l Anion Gap (3-11) POC Anion Gap (16-25) mmol/L POC BUN (7-18) mg/dl BUN (7-18) mg/dl Creatinine (0.6-1.4) mg/dl POC Creatinine (0.6-1.3) mg/dl Est Cr Clr Drug Dosing Est GFR ( Amer) Est GFR (Non-Af Amer) BUN/Creatinine Ratio (10-20) Glucose (70-99) mg/dl POC Glucose (other) (70-99) mg/dl Lactate Calcium (8.5-10.1) mg/dl POC Ioniz Calcium Nica (1.12-1.32) mmol/l Total Bilirubin (0.2-1) mg/dl AST (15-37) U/L ALT (12-78) U/L Alkaline Phosphatase (45-117) U/L Troponin I (0-0.045) ng/ml Total Protein (6.4-8.2) gm/dl Albumin (3.4-5.0) gm/dl Globulin (2.5-4.0) gm/dl Albumin/Globulin Ratio (0.9-2) Blood Type Blood Type Recheck Antibody Screen Crossmatch
--- NOTE | 2018-10-02 16:29 | Emergency Department Note ---
Entered by Leonardo Dietrich acting as a scribe for Donald Garcia DO History of Present Illness General Chief complaint: Hypotension Source: patient and EMS Limitations: clinical acuity History of Present Illness Provider complaint: Hematochezia Onset (ago): day(s) (2) Location: mouth and chest (Coughing up blood) Quality: + other (Coughing blood) Associated symptoms: + other (Hematochezia) Treatments prior to arrival: other (500 ml Fluid via EMS) This history is significantly limited secondary to clinic acuity and a speech barrier in the . The patient is a 73 year old male who presents to the Emergency Room via EMS. EMS state that the patient was passing blood through his rectum and coughing up blood as well. The patient states that he has been having "bright red" blood in his stool for the past 2 days. He also notes that he cannot swallow, but does not know why. EMS state that he was 79% on room air upon their arrival. They administered 500 of fluid and placed on 15 L of oxygen which brought him up to 81% oxygen saturation. EMS adds that he took oxycodone and fentanyl last night due to right sided abdominal pain. 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 The patient's arrived to the ED and adds that the patient's last dosage of radiation was last week. He has received 4 rounds. He started feeling very weak on Sunday, 4 days ago. He began coughing up blood at 0800 this morning. Home Medications Home Medications Medication Instructions Recorded Confirmed Type allopurinol 300 mg PO QAM 06/13/18 10/02/18 History amlodipine 5 mg PO QAM 06/13/18 10/02/18 History doxazosin 8 mg PO HS 06/13/18 10/02/18 History finasteride [Proscar] 5 mg PO QAM 06/13/18 10/02/18 History furosemide [Lasix] 20 mg PO QAM 06/13/18 10/02/18 History meloxicam 15 mg PO QAM 06/13/18 10/02/18 History acetaminophen 325 mg capsule 650 mg PO DAILY PRN cap 08/07/18 10/02/18 History gabapentin 250 mg/5 mL oral 300 mg PO TID ml 08/07/18 10/02/18 History solution lisinopril 20 mg tablet 20 mg PO QAM 08/07/18 10/02/18 History oxycodone 5 mg/5 mL oral solution 5 mg FEEDING TUBE Q4H PRN ml 08/07/18 History nutritional supplements 0.07 250 ea FEEDING TUBE 5XD ml 09/04/18 10/02/18 History gram-1.5 kcal/mL liquid for tube feed fluconazole 100 mg tablet 100 mg PO DAILY 14 Days #7 tab 09/09/18 10/02/18 Rx omeprazole 20 mg capsule,delayed 20 mg PO DAILY 28 Days #30 cap 09/11/18 Rx release dexamethasone [Decadron] 4 mg PO BID 10/02/18 10/02/18 History metoprolol tartrate 50 mg PO BID 10/02/18 10/02/18 History Allergies Allergy/AdvReac Type Severity Reaction Status Date / Time No Known Drug Allergies Allergy Unknown NONE Verified 09/23/18 11:41 pollen extracts Allergy Unknown NASAL Verified 09/23/18 11:41 CONGESTION, INCREASED PHLEGM Past Med/Surg History Medical History Paroxysmal atrial fibrillation (Chronic) HTN (hypertension) (Chronic) 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 HTN (hypertension) (Chronic) Orchitis of right testicle (Chronic) Dyslipidemia (Chronic) Left knee DJD (Chronic) Enlarged prostate with lower urinary tract symptoms (LUTS) (Chronic) DJD of shoulder (Chronic) BPH (benign prostatic hyperplasia) (Chronic) Bilateral renal cysts (Chronic) Carotid stenosis (Chronic) Dyslipidemia (Chronic) GERD (gastroesophageal reflux disease) (Chronic) Gouty arthropathy (Chronic) Benign neoplasm of colon (Resolved) 02/10/15 - Adenomatous & Hyperplatic Polyps removed History of shingles (Resolved) on chest across right side and back Surgical History S/P shoulder joint replacement (Chronic) H/O hemorrhoidectomy (Chronic) H/O left knee surgery (Chronic) S/P TURP (Chronic) S/P appy (Chronic) H/O sinus surgery (Resolved) 03/19/2018 H/O transurethral resection of prostate (Resolved) History of appendectomy (Resolved) as a child History of cardiac radiofrequency ablation (Resolved) 2012 S/P percutaneous endoscopic gastrostomy (PEG) tube placement (Resolved) 03/19/18 Family History Father , Passed age 76 of [place] No problems noted. Mother , Passed in 80's of old age/dementia No problems noted. Sister No problems noted. Family/Other , Patient has no children No problems noted. 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 ROS limited secondary to clinical acuity/Language barrier in . Physical Exam Vital Signs Vital Signs - 24 hr 10/02/18 12:50 10/02/18 13:46 10/02/18 14:12 Sepsis Action Taken by Nursing No Action Required Arterial Pulse Rate Pulse Rate 112 H 94 H 110 H Respiratory Rate 24 22 Blood Pressure 92/58 L 81/41 L 85/42 L Blood Pressure Mean 69 54 56 Pulse Oximetry 86 L 81 L 88 L Oxygen Delivery Method Non-rebreather Oxygen Flow Rate 15 10/02/18 14:15 10/02/18 14:20 Sepsis Action Taken by Nursing Arterial Pulse Rate 113 H Pulse Rate 111 H 113 H Respiratory Rate Blood Pressure Blood Pressure Mean Pulse Oximetry 89 L 88 L Oxygen Delivery Method Oxygen Flow Rate GENERAL: Laying on stretcher, pale, ill appearing, on non-rebreather, coughing up blood. EYE EXAM: normal conjunctiva. OROPHARYNX: no exudate, no erythema, lips, buccal mucosa, and tongue normal and mucous membranes are moist NECK: supple, no nuchal rigidity, non-tender. There is a fullness/mass to the anterior neck. LUNGS: Diminished at the bases. HEART: no murmurs, S1 normal and S2 normal ABDOMEN: abdomen soft, non-tender, normo-active bowel, sounds, no masses, no rebound or guarding. PED Tube located in mid-abdomen. BACK: Back is symmetrical on inspection and there is no deformity, no midline tenderness, no CVA tenderness. SKIN: no rashes and no bruising UPPER EXTREMITIES: upper extremities are grossly normal. LOWER EXTREMITIES: No pitting edema. NEURO EXAM: Awake, alert, following commands. Unable to talk, non-focal. Procedures Free Text Procedures CPR performed under my direction for more then 5 minutes. FAST Exam FAST Exam 1: Fluid in Morison's pouch: No Fluid in Splenorenal Junction: No Fluid around bladder, Transverse view: No Fluid around bladder, Sagittal view: No Fluid in Pericardial Sac: No Gross Wall Motion Abnormality: No Study normal for this patient: Yes Images saved for further review: No FAST Exam 2: Fluid in Pericardial Sac: No Gross Wall Motion Abnormality: No Additional Comments: IVC collapsible Intubation Time out performed: Yes sedative: Ketamine Mg Given: 150 paralytic: Succinylcholine Laryngoscope: fiber optic video scope Assist Device Used: fiber optic device ET Tube Size: 8 ET Tube Uncuffed: Yes Tube Secured Depth (cm): 22 Tube Secured Location: lips Tube Placement Confirmation: visualized tube passing through cords, equal breath sounds bilaterally and confirmation by capnometry Patient Tolerated Procedure: other Intubation Complications: none Course ED COURSE: Vital signs were reviewed and showed hypotension, tachycardia, and hypoxia. The patients medical record was reviewed The above diagnostic studies were performed and reviewed. ED treatments and interventions as stated above. 1238: The patient was evaluated in room B1. A complete history and physical examination was performed. 1252: Dr. Sanford - DUY is at bedside at this time. 1311: The patient's arrived to the ED and adds that the patient's last dosage of radiation was last week. He has received 4 rounds. He started feeling very weak on Sunday, 4 days ago. He began coughing up blood at 0800 this morning. 1329: I discussed the case with the patient's daughter. She states we should go with his wishes on code status. She is driving here now. 1337: I performed an intubation at this time. See procedure note. 1351: A CODE BLUE was called. Compressions started. 1418: I reviewed the patient's [facility]. She will evaluate the patient for further management. Consultations Consultation #1: [id number]: [facility] the [facility] She will evaluate the patient for further management. Administered Medications Sodium Chloride (Nss 1000ml) 1,000 mls @ 100 mls/hr IV .Q10H DEMARCUS Stop: 10/02/18 22:44 Last Admin: 10/02/18 15:54 Dose: Not Given Epinephrine HCl 4 mg/ Dextrose 254 mls @ 7.62 mls/hr IV .Q24H DEMARCUS; Protocol Stop: 11/01/18 15:32 Last Admin: 10/02/18 15:58 Dose: Not Given Norepinephrine Bitartrate 8 mg (/ Dextrose) 508 mls @ 19.05 mls/hr IV .Q24H DEMARCUS ; Protocol Stop: 10/05/18 15:32 Last Admin: 10/02/18 15:53 Dose: 0.4 mcg/kg/min, 152.4 mls/hr Sodium Chloride (Nss 1000ml) 1,000 mls @ 999 mls/hr IV .Q1H1M STA Stop: 10/02/18 16:41 Last Infusion: 10/02/18 13:30 Dose: 0 mls/hr Admin: 10/02/18 12:45 Dose: 999 mls/hr Sodium Chloride (Nss 1000ml) 1,000 mls @ 999 mls/hr IV .Q1H1M ONE Stop: 10/02/18 16:41 Last Infusion: 10/02/18 13:30 Dose: 0 mls/hr Admin: 10/02/18 13:00 Dose: 999 mls/hr Sodium Chloride (Nss 1000ml) 1,000 mls @ 999 mls/hr IV .Q1H1M ONE Stop: 10/02/18 16:42 Last Infusion: 10/02/18 13:30 Dose: 0 mls/hr Admin: 10/02/18 13:00 Dose: 999 mls/hr Ioversol (Optiray 320 100ml) 94 ml IV ONCE PRN PRN Reason: Interaction Checking Stop: 10/06/18 14:47 Last Admin: 10/02/18 14:48 Dose: 94 ml Discontinued Medications Glycopyrrolate (Robinul) Confirm Administered Dose 0.4 mg .ROUTE .STK-MED ONE Stop: 10/02/18 13:36 Last Admin: 10/02/18 16:04 Dose: Not Given Pantoprazole Sodium 40 mg/ (Syringe) 10 mls @ 5 mls/min IV NOW ONE Stop: 10/02/18 12:44 Last Admin: 10/02/18 13:00 Dose: 5 mls/min Pantoprazole Sodium 40 mg/ (Dextrose) 100 mls @ 400 mls/hr IV Q5H DEMARCUS Stop: 10/02/18 12:59 Last Admin: 10/02/18 15:54 Dose: 400 mls/hr Norepinephrine Bitartrate 4 mg (/ Dextrose) 254 mls @ 19.05 mls/hr IV .[id number] DEMARCUS; Protocol Stop: 10/02/18 15:30 Last Admin: 10/02/18 15:55 Dose: Not Given Epinephrine HCl 2 mg/ Dextrose 252 mls @ 15.12 mls/hr IV .[id number] DEMARCUS; Protocol Stop: 10/02/18 15:30 Last Admin: 10/02/18 15:55 Dose: Not Given Ioversol (Optiray 320 100ml) 94 ml IV ONCE PRN PRN Reason: Interaction Checking Stop: 10/06/18 13:25 Last Admin: 10/02/18 13:26 Dose: 94 ml Medical Decision Making Differential Diagnosis Differential diagnosis: Etiologies such as infections, reactive airway disease, COPD, pneumonia, pleural effusion, pulmonary edema, ARDS, pneumothorax, CHF, cardiac ischemia, cardiac tamponade, dysrhythmia, anemia, pulmonary embolism, musculoskeletal, gastrointestinal process, as well as others were entertained. Medical Records Attestation: I reviewed the patient's medical records. Home Medications Current Medication List: was personally reviewed by me Laboratory Data Attestation: I reviewed the patient's lab results. Result diagrams: 10/02/18 15:34 10/02/18 12:50 Lab Results 10/02/18 10/02/18 10/02/18 Range/Units 12:50 12:50 12:50 WBC 7.58 (4.8-10.8) K/uL RBC 3.79 L (4.7-6.1) M/uL Hgb 11.7 L (14.0-18.0) g/dL POC Hgb (14.0-18.0) g/dl Hct 36.4 L (42-52) % POC Hct (42-52) % MCV 96.0 (80-100) fL MCH 30.9 (25-34) pg MCHC 32.1 (32-36) g/dL RDW Std Deviation 55.6 H (36.4-46.3) fL RDW Coeff of Rory 15.9 H (11.5-14.5) % Plt Count 81 L (130-400) K/uL MPV 10.8 H (7.4-10.4) fL Neutrophils % (Manual) 83.0 % Lymphocytes % (Manual) 0.0 % Monocytes % (Manual) 2.7 % Metamyelocytes % (Man) 12.5 % Myelocytes % (Man) 1.8 % Neutrophils # (Manual) 6.29 (1.4-6.5) K/uL Total Absolute Neuts 6.29 (1.4-6.5) K/uL Total Abs Lymphocytes 0.00 L (1.2-3.4) K/uL Monocytes # (Manual) 0.20 (0.11-0.59) K/uL Metamyelocytes # (Man) 0.95 H (0-0) K/uL Myelocytes # (Manual) 0.14 H (0-0) K/uL Platelet Estimate Decreased (Normal) RBC Morphology Unremarkable PT 11.1 (9.0-12.0) Seconds POC INR (0.9-1.1) INR 1.1 (0.9-1.1) APTT 23.4 (21.0-31.0) Seconds PTT Ratio 0.9 POC pH (7.35-7.45) POC pCO2 (35-46) mmHg POC pO2 (80-95) mmHg POC HCO3 (19-24) michelle/L POC Base Excess (-9-1.8) michelle/L POC ABG O2 Sat (90-95) % POC Sodium (135-144) mEq/L Sodium 138 (136-145) mmol/L POC Potassium (3.3-5.0) mEq/L Potassium 5.7 H (3.5-5.1) mmol/L POC Chloride (101-112) mEq/L Chloride 101 (98-107) mmol/L Carbon Dioxide 29 (21-32) mmol/L POC Total CO2 (24-31) mEq/l Anion Gap 9.0 (3-11) POC Anion Gap (16-25) mmol/L POC BUN (7-18) mg/dl BUN 89 H (7-18) mg/dl Creatinine 2.20 H (0.6-1.4) mg/dl POC Creatinine (0.6-1.3) mg/dl Est Cr Clr Drug Dosing Not Reportable Est GFR ( Amer) 33.2 Est GFR (Non-Af Amer) 28.7 BUN/Creatinine Ratio 40.6 H (10-20) Glucose 145 H (70-99) mg/dl POC Glucose (other) (70-99) mg/dl Lactate (0.4-2.0) mmol/L Calcium 8.3 L (8.5-10.1) mg/dl POC Ioniz Calcium Nica (1.12-1.32) mmol/l Total Bilirubin 0.8 (0.2-1) mg/dl AST 38 H (15-37) U/L ALT 73 (12-78) U/L Alkaline Phosphatase 56 (45-117) U/L Troponin I < 0.015 (0-0.045) ng/ml Total Protein 5.5 L (6.4-8.2) gm/dl Albumin 2.3 L (3.4-5.0) gm/dl Globulin 3.2 (2.5-4.0) gm/dl Albumin/Globulin Ratio 0.7 L (0.9-2) Blood Type Blood Type Recheck Antibody Screen Crossmatch 10/02/18 10/02/18 10/02/18 Range/Units 12:50 12:50 12:50 WBC (4.8-10.8) K/uL RBC (4.7-6.1) M/uL Hgb (14.0-18.0) g/dL POC Hgb 11.6 L (14.0-18.0) g/dl Hct (42-52) % POC Hct 34 L (42-52) % MCV (80-100) fL MCH (25-34) pg MCHC (32-36) g/dL RDW Std Deviation (36.4-46.3) fL RDW Coeff of Rory (11.5-14.5) % Plt Count (130-400) K/uL MPV (7.4-10.4) fL Neutrophils % (Manual) % Lymphocytes % (Manual) % Monocytes % (Manual) % Metamyelocytes % (Man) % Myelocytes % (Man) % Neutrophils # (Manual) (1.4-6.5) K/uL Total Absolute Neuts (1.4-6.5) K/uL Total Abs Lymphocytes (1.2-3.4) K/uL Monocytes # (Manual) (0.11-0.59) K/uL Metamyelocytes # (Man) (0-0) K/uL Myelocytes # (Manual) (0-0) K/uL Platelet Estimate (Normal) RBC Morphology PT (9.0-12.0) Seconds POC INR (0.9-1.1) INR (0.9-1.1) APTT (21.0-31.0) Seconds PTT Ratio POC pH (7.35-7.45) POC pCO2 (35-46) mmHg POC pO2 (80-95) mmHg POC HCO3 (19-24) michelle/L POC Base Excess (-9-1.8) michelle/L POC ABG O2 Sat (90-95) % POC Sodium 138 (135-144) mEq/L Sodium (136-145) mmol/L POC Potassium 5.8 H (3.3-5.0) mEq/L Potassium (3.5-5.1) mmol/L POC Chloride 99 L (101-112) mEq/L Chloride (98-107) mmol/L Carbon Dioxide (21-32) mmol/L POC Total CO2 30 (24-31) mEq/l Anion Gap (3-11) POC Anion Gap 16.0 (16-25) mmol/L POC BUN 82 H (7-18) mg/dl BUN (7-18) mg/dl Creatinine (0.6-1.4) mg/dl POC Creatinine 2.0 H (0.6-1.3) mg/dl Est Cr Clr Drug Dosing Est GFR ( Amer) Est GFR (Non-Af Amer) BUN/Creatinine Ratio (10-20) Glucose (70-99) mg/dl POC Glucose (other) 142 H (70-99) mg/dl Lactate (0.4-2.0) mmol/L Calcium (8.5-10.1) mg/dl POC Ioniz Calcium Nica 1.12 (1.12-1.32) mmol/l Total Bilirubin (0.2-1) mg/dl AST (15-37) U/L ALT (12-78) U/L Alkaline Phosphatase (45-117) U/L Troponin I (0-0.045) ng/ml Total Protein (6.4-8.2) gm/dl Albumin (3.4-5.0) gm/dl Globulin (2.5-4.0) gm/dl Albumin/Globulin Ratio (0.9-2) Blood Type O Positive Blood Type Recheck O Positive Antibody Screen NEGATIVE Crossmatch See Detail 10/02/18 10/02/18 10/02/18 Range/Units 13:03 14:06 15:34 WBC (4.8-10.8) K/uL RBC (4.7-6.1) M/uL Hgb 14.1 (14.0-18.0) g/dL POC Hgb (14.0-18.0) g/dl Hct 43.0 (42-52) % POC Hct (42-52) % MCV (80-100) fL MCH (25-34) pg MCHC (32-36) g/dL RDW Std Deviation (36.4-46.3) fL RDW Coeff of Rory (11.5-14.5) % Plt Count (130-400) K/uL MPV (7.4-10.4) fL Neutrophils % (Manual) % Lymphocytes % (Manual) % Monocytes % (Manual) % Metamyelocytes % (Man) % Myelocytes % (Man) % Neutrophils # (Manual) (1.4-6.5) K/uL Total Absolute Neuts (1.4-6.5) K/uL Total Abs Lymphocytes (1.2-3.4) K/uL Monocytes # (Manual) (0.11-0.59) K/uL Metamyelocytes # (Man) (0-0) K/uL Myelocytes # (Manual) (0-0) K/uL Platelet Estimate (Normal) RBC Morphology PT (9.0-12.0) Seconds POC INR 1.1 (0.9-1.1) INR (0.9-1.1) APTT (21.0-31.0) Seconds PTT Ratio POC pH 7.23 L (7.35-7.45) POC pCO2 86 H (35-46) mmHg POC pO2 61 L (80-95) mmHg POC HCO3 36 H (19-24) michelle/L POC Base Excess 8.0 H (-9-1.8) michelle/L POC ABG O2 Sat 84.0 L (90-95) % POC Sodium (135-144) mEq/L Sodium (136-145) mmol/L POC Potassium (3.3-5.0) mEq/L Potassium (3.5-5.1) mmol/L POC Chloride (101-112) mEq/L Chloride (98-107) mmol/L Carbon Dioxide (21-32) mmol/L POC Total CO2 39 H (24-31) mEq/l Anion Gap (3-11) POC Anion Gap (16-25) mmol/L POC BUN (7-18) mg/dl BUN (7-18) mg/dl Creatinine (0.6-1.4) mg/dl POC Creatinine (0.6-1.3) mg/dl Est Cr Clr Drug Dosing Est GFR ( Amer) Est GFR (Non-Af Amer) BUN/Creatinine Ratio (10-20) Glucose (70-99) mg/dl POC Glucose (other) (70-99) mg/dl Lactate (0.4-2.0) mmol/L Calcium (8.5-10.1) mg/dl POC Ioniz Calcium Nica (1.12-1.32) mmol/l Total Bilirubin (0.2-1) mg/dl AST (15-37) U/L ALT (12-78) U/L Alkaline Phosphatase (45-117) U/L Troponin I (0-0.045) ng/ml Total Protein (6.4-8.2) gm/dl Albumin (3.4-5.0) gm/dl Globulin (2.5-4.0) gm/dl Albumin/Globulin Ratio (0.9-2) Blood Type Blood Type Recheck Antibody Screen Crossmatch 10/02/18 10/02/18 Range/Units 15:34 Unknown WBC (4.8-10.8) K/uL RBC (4.7-6.1) M/uL Hgb (14.0-18.0) g/dL POC Hgb (14.0-18.0) g/dl Hct (42-52) % POC Hct (42-52) % MCV (80-100) fL MCH (25-34) pg MCHC (32-36) g/dL RDW Std Deviation (36.4-46.3) fL RDW Coeff of Rory (11.5-14.5) % Plt Count (130-400) K/uL MPV (7.4-10.4) fL Neutrophils % (Manual) % Lymphocytes % (Manual) % Monocytes % (Manual) % Metamyelocytes % (Man) % Myelocytes % (Man) % Neutrophils # (Manual) (1.4-6.5) K/uL Total Absolute Neuts (1.4-6.5) K/uL Total Abs Lymphocytes (1.2-3.4) K/uL Monocytes # (Manual) (0.11-0.59) K/uL Metamyelocytes # (Man) (0-0) K/uL Myelocytes # (Manual) (0-0) K/uL Platelet Estimate (Normal) RBC Morphology PT (9.0-12.0) Seconds POC INR (0.9-1.1) INR (0.9-1.1) APTT (21.0-31.0) Seconds PTT Ratio POC pH (7.35-7.45) POC pCO2 (35-46) mmHg POC pO2 (80-95) mmHg POC HCO3 (19-24) michelle/L POC Base Excess (-9-1.8) michelle/L POC ABG O2 Sat (90-95) % POC Sodium (135-144) mEq/L Sodium (136-145) mmol/L POC Potassium (3.3-5.0) mEq/L Potassium (3.5-5.1) mmol/L POC Chloride (101-112) mEq/L Chloride (98-107) mmol/L Carbon Dioxide (21-32) mmol/L POC Total CO2 (24-31) mEq/l Anion Gap (3-11) POC Anion Gap (16-25) mmol/L POC BUN (7-18) mg/dl BUN (7-18) mg/dl Creatinine (0.6-1.4) mg/dl POC Creatinine (0.6-1.3) mg/dl Est Cr Clr Drug Dosing Est GFR ( Amer) Est GFR (Non-Af Amer) BUN/Creatinine Ratio (10-20) Glucose (70-99) mg/dl POC Glucose (other) (70-99) mg/dl Lactate 5.7 H* (0.4-2.0) mmol/L Calcium (8.5-10.1) mg/dl POC Ioniz Calcium Nica (1.12-1.32) mmol/l Total Bilirubin (0.2-1) mg/dl AST (15-37) U/L ALT (12-78) U/L Alkaline Phosphatase (45-117) U/L Troponin I 0.021 (0-0.045) ng/ml Total Protein (6.4-8.2) gm/dl Albumin (3.4-5.0) gm/dl Globulin (2.5-4.0) gm/dl Albumin/Globulin Ratio (0.9-2) Blood Type Blood Type Recheck Antibody Screen Crossmatch Imaging Data Attestation: I personally reviewed and interpreted this imaging study as follows : Radiologist's Impression: CT angio chest PE protocol CLINICAL HISTORY: 73 years-old Male presenting with hemoptysis, clinical concern for pulmonary embolus. TECHNIQUE: Multidetector CT angiography of the chest was performed after administration of intravenous contrast. 3-D volumetric and/or maximum intensity projection (MIP) images were subsequently reconstructed for review. IV contrast : 94 mL of Optiray 320. One or more dose lowering techniques were used consistent with the principles of ALARA (as low as reasonably achievable), including automatic exposure control, mA or kV adjustment to individual patient size, and/or use of iterative reconstruction. COMPARISON: Outside chest CT from 06/10/2018 and outside PET/CT from 07/24/2018. CT DOSE (mGy.cm): The estimated cumulative dose is 2447.95 mGy.cm. FINDINGS: Insurance Marketing Specialist topogram: Reverse left total shoulder arthroplasty. Endotracheal tube terminates in the mid thoracic trachea. Bibasilar opacities. Lumbar fusion hardware. Pulmonary vasculature: The study is suboptimal for the assessment of the pulmonary vascular tree secondary to timing of the contrast bolus and respiratory motion artifact. Allowing for limited image quality, no central filling defect to suggest pulmonary embolus. Main pulmonary artery enlarged measuring 3.4 cm in diameter. No flattening of the interventricular septum. No intracardiac filling defect. No reflux of contrast into the hepatic veins. Remaining chest: On soft tissue windows, mild enlargement of the thyroid gland. Endotracheal tube position of the mid thoracic trachea. Right subclavian central venous catheter terminates in the upper SVC. No axillary, supraclavicular, hilar, or mediastinal lymphadenopathy. Atherosclerosis of the aorta. Normal heart size. Coronary artery calcification. No pericardial or pleural effusion. Upper abdomen normal. On lung windows, extensive consolidation in the bilateral lower lobes with minimal residual aeration. There is no significant volume loss of the lower lobes. Slightly less extensive consolidation in dependent portions of the upper lobes, right middle lobe, lingula. Multifocal nodular consolidation extensively apices. Extensive layering debris in the trachea. The lower lobe airways are largely opacified. Cystic lesion or bulla noted in the left lower lobe. No pneumothorax. On bone windows, degenerative changes of the spine. IMPRESSION: 1. Allowing for suboptimal image quality, no evidence of pulmonary embolus. 2. Severe bilateral dependent predominant consolidation highly suspicious for massive aspiration. 3. Layering debris in the trachea. 4. Appropriate positioned endotracheal tube and right subclavian central venous catheter. Electronically signed by: Marcelino Elaine M.D. 10/02/2018 3:[address] soft tissue neck w con HISTORY: neck mass coughing up blood TECHNIQUE: Multiaxial CT images of the neck were performed following the use of intravenous contrast. COMPARISON STUDY: Facial bone CT 06/13/2018. PET CT 07/24/2018. FINDINGS: Anterior to the clivis and located within the nasopharyngeal soft tissues there is persistent abnormal thickening and calcification consistent with the patient's known mass. This encases the distal internal carotid arteries and jugular veins. This results in mild narrowing of the right distal internal jugular vein which has improved. There are few calcified and mildly enlarged lateral retropharyngeal lymph nodes and upper cervical lymph nodes. These remain unchanged. The nasopharyngeal mass is most pronounced along the right side of the nasopharyngeal soft tissues and has slightly decreased in size currently measuring 3.6 x 2.1 cm, previously measuring 4.3 x 3.0 cm. There is persistent soft tissue thickening of the soft palate/uvula. This has progressed and measures up to 1.5 cm in thickness. However, the degree of airway narrowing at the posterior oropharynx has slightly improved given the decrease in size of the nasopharyngeal soft tissue mass. This results in mild to moderate narrowing of the oropharynx. The remaining airway is widely patent. The epiglottis is at the upper limits of normal. Trace fluid within the hypopharynx posteriorly. There is a 1.3 cm left thyroid nodule. No prevertebral edema. The salivary glands enhance symmetrically. The visualized brain parenchyma is unremarkable. Partial opacification of the right maxillary sinus and mild mucosal thickening within the left maxillary sinus and ethmoid air cells. No pneumothorax. Opacified left mastoid air cells and left middle ear cavity. There are few opacified right mastoid air cells and partial opacification the right middle ear cavity. Degenerative changes throughout the cervical spine. IMPRESSION: 1. Slight decrease in size in the nasopharyngeal mass compared to the prior study. The prominent upper cervical partially calcified lymph nodes remain unchanged. 2. Progressive soft tissue thickening of the soft palate/uvula which could be due to post radiation changes. This results in mild to moderate narrowing of the posterior oropharynx airway. However, this is also slightly improved given the decrease in size in the nasopharyngeal mass. 3. The epiglottis is at the upper limits of normal for thickness. However, the hypopharyngeal airway is widely patent. There is also trace fluid within the posterior hypopharynx. 4. Paranasal sinus and mastoid air cell disease as described above. 5. These findings were discussed with Dr. Sanford at 1:35 PM on 10/02/2018. Electronically signed by: Noman Moise M.D. 10/02/2018 1:[address] head/brain wo con CLINICAL HISTORY: 73 years-old Male presenting with bleeding . TECHNIQUE: Multidetector CT imaging of the head was performed without the use of intravenous contrast. IV contrast: None. One or more dose lowering techniques were used consistent with the principles of ALARA (as low as reasonably achievable), including automatic exposure control, mA or kV adjustment to individual patient size, and/or use of iterative reconstruction. COMPARISON: 08/25/2018. CT DOSE (mGy.cm): The estimated cumulative dose is 1261.59 mGy.cm. FINDINGS: Insurance Marketing Specialist topogram: Reverse left total shoulder arthroplasty. Ventricles and sulci normal in size. No hemorrhage. 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 No acute territorial infarct. No mass effect or midline shift. No extra-axial fluid collection. Inspissated high density material in the right maxillary sinus similar to prior exam. Mucosal thickening in the sphenoid sinuses and fluid in the left mastoid air cells unchanged. Sclerosis of the sinus mckenzie indicative of chronic sinusitis. Calvarium intact. IMPRESSION: 1. No significant change compared to the prior study. No acute intracranial abnormality. 2. 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 3. Evidence of chronic sinusitis. Electronically signed by: Marcelino Elaine M.D. 10/02/2018 1:34 PM XR chest 1V portable CLINICAL HISTORY: SOB COMPARISON STUDY: 08/25/2018 FINDINGS: The heart is enlarged. There are left lower lung zone airspace opacities suggestive a pneumonia. Minor right basilar opacities are also evident , atelectasis versus pneumonia. There is a retrocardiac opacity likely representing a hiatal hernia. There is no failure. There is a left shoulder arthroplasty. Arthritic changes are present within the right shoulder.[ IMPRESSION: 1. Left lower lung zone airspace opacities consistent with pneumonia. Films subsequent to treatment are recommended in follow-up 2. Minor right basilar opacities, atelectasis versus pneumonia. Electronically signed by: Gildardo Jacobs M.D. 10/02/2018 1:05 PM [address] AND PELVIS CT WITH IV CONTRAST HISTORY: Acute hemoptysis brbpr TECHNIQUE: Multiaxial CT images of the abdomen and pelvis were performed following the use of intravenous contrast. A dose lowering technique was utilized adhering to the principles of ALARA. COMPARISON STUDY: CTA chest of same day, PET CT 07/24/2018. FINDINGS: Extensive bibasilar consolidation with groundglass densities and trace left pleural effusion. Tracheobronchial secretions are also noted. Thin-walled 4.4 cm cyst about the lateral basal segment left lower lobe. No pneumatosis or pneumoperitoneum. The imaged inferior cardiac chambers appear unremarkable. Mildly contracted gallbladder. The liver, spleen, pancreas and adrenal glands appear unremarkable. Mild nonspecific bilateral perinephric stranding. Delayed phase of contrast in the collecting systems from CTA chest. There are several hypodense lesions about the bilateral kidneys, several of which are too small to characterize. The larger lesions measuring up to 9.6 x 8.6 cm within the inferior pole right kidney demonstrate imaging characteristics compatible with renal cysts. 5 mm nonobstructing calculus of the superior pole left kidney. No ureteral calculi identified. Aguirre catheter noted within a decompressed urinary bladder lumen. Prostamegaly with frond like soft tissue extending into the base of the urinary bladder. Extensive mixed plaque relation about the abdominal aorta without aneurysm. No adenopathy. Gastrostomy tube noted about the mid gastric lumen with trace air tracking along the catheter within the abdominal wall. No small bowel obstruction. Several fluid-filled loops of small bowel with air-fluid levels are noted. Colonic diverticulosis without acute diverticulitis. Nondistention involves the majority of the colon. Moderate eccentric wall thickening noted about the splenic flexure and proximal descending colon extending for a length of 7.6 cm seen best on the coronal images. No surrounding inflammation. Decompressed terminal ileum. The appendix is not seen. Soft tissues appear to be within normal limits. Bones appear to be intact. Asymmetric heterogeneous sclerosis about the right iliac bone with medullary coarsening. Laminectomy changes with posterior interbody evelia and screw fusion and discectomy at L4-L5. IMPRESSION: 1. Extensive bibasilar consolidative and groundglass opacities suggestive of aspiration and/or multifocal pneumonia. 2. Trace left pleural effusion. 3. Apparent moderate eccentric wall thickening involves the splenic flexure and proximal descending colon for a length of 7.6 cm. No surrounding inflammation identified. This finding likely reflects stool contents within the bowel lumen with underlying neoplasm or nonspecific colitis also within the differential. This could be correlated with colonoscopy if of further clinical concern. 4. No bowel obstruction. 5. Colonic diverticulosis without acute diverticulitis. Electronically signed by: Addi Galicia M.D. 10/02/2018 3:20 PM ECG Data Attestation: I personally reviewed and interpreted this ECG as follows: Indication: SOB/dyspnea, weakness and other (Coughing blood) Rate (beats per minute): 109 Rhythm: sinus tachycardia Findings: + other (Poor baseline in lateral); no acute ischemic change and no ectopy Blood Pressure Blood Pressure Findings: Low blood pressure Blood Pressure Disposition: further management by hospitalist CHAIM Johnston Patient is a 73-year-old male with a past medical history of amyloidosis who I took medical command call on. He was being brought in for respiratory distress with a pulse ox of 82% on a nonrebreather at 15 L coughing up blood and having bright red blood per rectum with systolic blood pressures in the 60s-80s. Upon arrival to the ER patient is found to be hypoxic in the mid to upper 80s. He was continued on a nonrebreather. Systolic blood pressures were in the 60s- 70s. Additional IVs were established and he was given 3 L IV normal saline via pressure bags. Heart rate did trend down from the 120s to low 100s. His chart was reviewed as he was unable to talk. He has a history of a pharyngeal/neck mass with erosion into the carotid and internal jugular and base of the skull. Based on this I was extremely hesitant because the chart showed he was a difficult intubation with these findings. Called for massive transfusion protocol and 2 units of uncrossed which were given immediately. Updated the at bedside along with [id number]. Discussed with the ict customer support officer who came down and helped evaluate the patient. Decision was made to take the patient to CAT scan to evaluate where the bleeding was coming from. When he laid flat he dropped his pulse ox into the low 70s. Only able to obtain the CT head and neck which showed a fairly patent airway. Following this patient was brought back to be 1 and intubated with an 802 by myself. We used IV ketamine for an awake intubation. We did give him socks and VAC once we passed the tube through his cords. About 10 minutes later patient dropped his blood pressure and CPR was started. This ensued for about 5-10 minutes. Patient was given IV bicarb. He was given IV epinephrine as well. He was started on a Levophed drip. I performed a bedside ultrasound and cardiac contractility did resume. He was PEA. Started on the Levophed drip and titrated up. Systolic pressure still remained in the 70s. I gave push dose epinephrine at bedside. Systolic blood pressures did trend up in the low 90s. Following intubation pulse ox still remained in the high to mid 80s. Seasonal Customer Service Associate placed central line and art line. Patient was taken back to CT for CTA of the chest. Following this patient was taking up to the ICU. Patient received 2 units PRBCs while in the ER, IV Levophed drip, push dose epinephrine, IV ketamine, IV succinylcholine, IV vecuronium, bicarb, bicarbonate drip. PH was 7.2 with a CO2 of 85. CT of the neck did show improvement of the airway mass. Patient was also on a Protonix drip and bolus. Of note remainder of labs showed no significant leukocytosis or anemia. Platelets were slightly low at 81. INR was normal. BMP did show a potassium slightly elevated at 5.7. Lactate was 5.7 as well. PSG was elevated to 26. Troponin was detectable but not positive. EKG was fairly unremarkable. Do favor this was likely alcohol from aspiration secondary to oral pharyngeal mass and bleeding with closing infection in the airway along causing septic shock. Impression & Plan Respiratory failure, Hemoptysis, Septic shock Critical Care Time I have personally spent greater than 125 minutes of critical care time in the direct management of this patient. This includes bedside care, interpretation of diagnostic studies, and testing, discussion with consultants, patient, and family members, and other required patient management activities. This 125 minutes is in excess of all separately billable procedures. Critical Care Time: Yes Total Critical Care Time: 125 Discharge Plan Visit Data Chief Complaint: Hypotension ED Provider: Donald Garcia Discharge Problem: Respiratory failure, Hemoptysis, Septic shock Patient Disposition: Being Evaluated by Hospitalist Discharge Instructions Interventions: ED Discharge Assessment Last Done: 10/02/18 14:30 The scribe's documentation has been prepared under my direction and personally reviewed by me in its entirety. I confirm that the note above accurately reflects all work, treatment, procedures, and medical decision making performed by me.
[2018-10-02] MEDS ORDERED: SODIUM BICARBONATE 8.4% 150 MEQ in WATER, STERILE 1,000 ML IV SCH (16:30)
--- NOTE | 2018-10-02 19:36 | Death Summary ---
Date of Service October 02, 2018 Pronouncement Note Date and Time of Date of : 10/02/18 Time of : 19:29 PCOD Preliminary cause of : Respiratory failure Contributing Factors (1) BRBPR (bright red blood per rectum): Contributing factors: ARDS aspiration pneumonia Summary Additional details: Patient noted to be progressively of bradycardic and subsequently pulseless around 7:20 PM. CPR initiated at bedside for second cardiac arrest. Patient subsequently requested for termination of CPR efforts. Additional Data Confirmation of : no pulse, no respirations, no heart sounds and pupils fixed and dilated Family: at bedside Attending/PCP notified?: No Attending physician: John Kaufman MD Was code activated?: Yes
[2018-10-02] MEDS ORDERED: PANTOprazole 40 MG in SYRINGE 0 ML IV SCH (21:00)
[2018-10-02] MEDS ORDERED: KETAMINE HCL INJ 50 MG/ML 10 ML VIAL IV ONE (21:42)
[2018-10-02] MEDS ORDERED: CALCIUM CHLORIDE 10% 10 ML SYR IV ONE (21:42)
[2018-10-02] MEDS ORDERED: SODIUM CHLORIDE 0.9% 10ML FLUSH IV ONE ×3 (21:42)
[2018-10-02] MEDS ORDERED: SODIUM BICARB 8.4% INJ 50 MEQ/50 ML SYR IV ONE ×2 (21:42)
[2018-10-02] MEDS ORDERED: VECURONIUM BROMIDE 10 MG VIAL IV ONE (21:42)
[2018-10-02] MEDS ORDERED: SUCCINYLCHOLINE CHLORIDE 20 MG/ML 10 ML VIAL IV ONE (21:42)
--- NOTE | 2018-10-02 22:50 | Discharge Summary ---
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 Has been seen by [facility] ENT and a skull base surgeon and per record review, mass is unresectable. Has been undergoing palliative radiation locally. In the ED, imaging was obtained but soft tissue neck CT without cause of hemoptysis. Patient became acutely hypoxic and patient was intubated. Soon after, develiped PEA heart rhythm and code blue was called. ROSC was achieved after CPR and 1mg epinephrine. Dr. Sanford inserted central line and A line, Levophed was started and patient was transitioned to ICU. Patient's at bedside who determined patient to be a full code. History limited 2/2 speaking [place] as second language. Principal Diagnosis Hypoxemic respiratory failure secondary to secondary to ARDS secondary to aspiration Cardiac arrest x 2 Discharge Data Allergies Allergy/AdvReac Type Severity Reaction Status Date / Time No Known Drug Allergies Allergy Unknown NONE Verified 09/23/18 11:41 pollen extracts Allergy Unknown NASAL Verified 09/23/18 11:41 CONGESTION, INCREASED PHLEGM Consultations 10/02/18 14:18 ED Decision to Admit Stat 10/02/18 14:19 Consult Case Management - Discharge Planning Routine 10/02/18 14:21 Consult Crane Follower Routine 10/02/18 15:34 Consult Gastroenterology Routine Consult Palliative Care Routine Ordered Studies 10/02/18 12:43 CT abd pelvis IV con only Stat 10/02/18 12:54 CT head/brain wo con Stat CT soft tissue neck w con Stat 10/02/18 14:26 CT angio chest PE protocol Stat Hospital Course (1) Respiratory failure: Patient transferred to the ICU on Levophed after intubation and CPR for first cardiac arrest at the ER. Bronchoscopy showed massive aspiration. Patient noted to be progressively of bradycardic and subsequently pulseless around 7:20 PM. CPR initiated at bedside for second cardiac arrest. Patient subsequently requested for termination of CPR efforts. Patient pronounced at 7:29 PM. Total time to prepare this discharge summary was 10 minutes. Total Time Total Time Spent Total Time Spent (In Minutes): 10 Discharge Plan Discharge Items Patient Disposition: Follow-up/Referrals: Tali Valentine DO [Primary Care Provider] - Stand-Alone Forms: [facility] Admission Data Admit Date/Time: 10/02/18 14:19 Service: Intensive Care Unit Other DC Date/Time DO NOT enter until pt leaves facility: 10/02/18 21:43
[2018-10-04 14:59] LABS: iSTAT Arterial Blood Gas HCO3 27 meg/L (19-24); iSTAT Carbon Dioxide 29 mEq/l (24-31); iSTAT FiO2 100 %
== END 2018-10-02 21:43 | disposition expired | DRG 982 ==
LOC: ED 12:37 → 1E 14:19